=== PATIENT | female | born 1950 | race Hispanic/Latino ===

== ENCOUNTER 2017-10-25 07:55 | Observation (INO) | payer MEDICARE, OTHER ==
[2017-10-25 08:02] VITALS: BMI 24.9
--- NOTE | 2017-10-25 08:05 | ED PDOC ---
Arrival/HPI - General Chief Complaint: Dizziness/Lightheaded Time Seen by Provider: 10/25/17 08:04 Historian: Patient - History of Present Illness Narrative History of Present Illness (Text): 10/25/17 08:30 67 year old female who presents to the emergency department complaining of dizziness/lightheadedness since this morning. Patient reports she was at the coffee shop when she began to feel lightheadedness and due to these symptoms the merchandising team lead called 911. Patient notes the lightheadedness has become more frequent in the past 2 days and complains of lack of sleep in the last 6-7 days. She states being concerned about apartment eviction, which she claims " has mold" in it as well, and has associated these concerns with feeling depression with no SI, NO HI. Additionally, patient notes having dysuria since 3 days ago and was diagnosed with UTI 6 weeks ago (finished antibiotic Macrobid) . According to patient she has been in [facility] psych unit before and notes having visual hallucination, mainly in the dark, with no auditory/tactile hallucinations. She states not drinking much fluid, except coffee. Patient denies LOC, focal weakness, fever, chest pain, shortness of breath or other complaints. pt denied other complaints pt is here for further eval PMD: Doctor in ; DR Farrar Psychologist: in [place] pt lives by herself pt is right hand dominate Time/Duration: < week Symptom Onset: Sudden Symptom Course: Unchanged Severity Level: Mild Activities at Onset: Rest Context: Home, Other (was a coffee shop) Past Medical History - Provider Review Nursing Documentation Reviewed: Yes - Travel History Have you recently traveled outside US w/in the past 3 mons?: No - Past History Past History: No Previous - Infectious Disease Hx of Infectious Diseases: None - Tetanus Immunization Tetanus Immunization: Unknown - Reproductive Menopause: Yes Currently : No Family/Social History - Physician Review Nursing Documentation Reviewed: Yes Family/Social History: Unknown Family HX Smoking Status: Unknown If Ever Smoked Hx Alcohol Use: No Hx Substance Use: No Hx Substance Use Treatment: No Allergies/Home Meds Allergies/Adverse Reactions: Allergies Sulfa (Sulfonamide Antibiotics) Allergy (Verified 10/25/17 11:44) RASH Home Medications: Home Meds Medication Instructions Recorded Confirmed Atorvastatin Calcium 10 mg PO DIN 10/25/17 10/25/17 Escitalopram [Lexapro] 10 mg PO DAILY 10/25/17 10/25/17 Lisinopril [Zestril] 10 mg PO DAILY 10/25/17 10/25/17 Metoprolol Tartrate [Lopressor] 25 mg PO DAILY 10/25/17 10/25/17 Review of Systems - Review of Systems Constitutional: Fatigue. absent: Fevers Eyes: absent: Vision Changes ENT: absent: Hearing Changes Respiratory: absent: SOB Cardiovascular: absent: Chest Pain, Palpitations Gastrointestinal: absent: Abdominal Pain Genitourinary Female: Dysuria. absent: Hematuria, Vaginal Discharge Musculoskeletal: absent: Back Pain Skin: absent: Rash Neurological: Dizziness (lightheadedness). absent: Headache, Speech Changes Endocrine: absent: Diaphoresis Hemo/Lymphatic: Normal Psychiatric: Depression, Other (visual hallucination). absent: Suicidal Ideation Physical Exam Vital Signs Reviewed: Yes Vital Signs Temp Pulse Resp BP Pulse Ox 10/25/17 11:07 98.6 F 84 19 162/74 H 98 Temperature: Afebrile Blood Pressure: Hypertensive Pulse: Regular Respiratory Rate: Normal Appearance: Positive for: Well-Appearing, Non-Toxic, Uncomfortable, Other (alert /awake, GCS = 15, oriented x 2 (not to date/time); cooperative, NAD, uncomfortable, resting in bed) Pain Distress: None Mental Status: Positive for: other (alert/awake, cooperative). No: Alert and Oriented X 3 (oriented x 2 (not to date and time) ), Confused, Agitated, Lethargic, Comatose - Systems Exam Head: Present: Atraumatic, Normocephalic Pupils: Present: PERRL, Other (no nystagmus, no photophobia, sclera anicteric; visual field intact b/l) Extroacular Muscles: Present: EOMI Conjunctiva: Present: Normal Ears: Present: Normal Mouth: Present: Dry, Other (poor dentitions, no drooling/stridor, no dysphonia; dry oral mucosa noted, uvula/tongue are midline) Pharnyx: Present: Normal Nose (External): Present: Atraumatic Nose (Internal): Present: Normal Inspection Neck: Present: Normal Range of Motion, Trachea Midline, Other (no step off, no midline tenderness). No: Meningeal Signs, MIDLINE TENDERNESS Respiratory/Chest: Present: Clear to Auscultation, Good Air Exchange, Other ( CTA b/l, no w/r/r, no accessory muscle use noted, no tachypenia). No: Respiratory Distress, Accessory Muscle Use, Wheezes, Decreased Breath Sounds, Rales, Retracting, Rhonchi Cardiovascular: Present: Regular Rate and Rhythm, Normal S1, S2. No: Murmurs, Tachycardic Abdomen: Present: Normal Bowel Sounds, Other (well nourished female, no focal tenderness, no leroy's sign, no mcburney's point tenderness, no masses/rebound/ guarding/rigidity). No: Tenderness, Distention, Peritoneal Signs, Rebound, Guarding Back: Present: Normal Inspection. No: CVA Tenderness, Midline Tenderness Upper Extremity: Present: Normal Inspection, Normal ROM, NORMAL PULSES, Neurovascularly Intact Lower Extremity: Present: Normal Inspection, NORMAL PULSES, Normal ROM, Neurovascularly Intact Neurological: Present: GCS=15, CN II-XII Intact, Speech Normal, Motor Func Grossly Intact, Normal Sensory Function, Normal Cerebellar Funct, Other (slight unsteady gait is noted, mild wide base gait; + ambulates with a cane, no slurr speech, oriented x 2, no facial asymmetries) Skin: Present: Warm, Dry, Normal Color, Other (cap refill ~ 1sec, no ulcerations , no petechiae). No: Rashes Psychiatric: Present: Alert, Normal Insight, Normal Concentration, Anxious ( appears figity ). No: Oriented x 3 (oriented x 2) Medical Decision Making ED Course and Treatment: 10/25/17 Impression: 67 year old female who is cooperative and appears anxious and fidgety. She is alert and oriented x 2 ( not to date or time). NIH score at baseline was 0. She is complaining of dizziness/lightheadedness and depression. I have considered all Differential Diagnosis regarding pt's chief medical complaints/clinical findings included but are not limited to: Plan: -- CT Head -- Labs -- Urinalysis -- Aspirin and Sodium Chloride -- Reassess and disposition Progress Notes: 10/25/17 1055 pt continues to feel weak/dizzy, uncomfortable pt is made aware of her medical results agrees with admission/observation 1100 hospitalists collection systems administrator contacted, made aware, agrees with admission/observation 1130 vital signs improved pt is not in any distress currently, awaiting UA results Re-evaluation Time: 10:50 Reassessment Condition: Unchanged - Lab Interpretations Lab Results: 10/25/17 08:48 10/25/17 08:48 Lab Results 10/25/17 08:48: Salicylates < 1 L, Acetaminophen < 10.0 L 10/25/17 08:48: TSH 3rd Generation 2.46, Alcohol, Quantitative < 10 10/25/17 08:48: pO2 65 H, VBG pH 7.40, VBG pCO2 46.0, VBG HCO3 28.5 H, VBG Total CO2 29.9 H, VBG O2 Sat (Calc) 95.0 H, VBG Base Excess 3.0 H, VBG Potassium 4.2, Sodium 138.0, Chloride 104.0, Glucose 133 H, Lactate 1.2, FiO2 21.0, Venous Blood Potassium 4.2 10/25/17 08:48: Sodium 141, Chloride 102, Potassium 4.2, Carbon Dioxide 29, Anion Gap 15, BUN 13, Creatinine 0.7, Est GFR ( Amer) > 60, Est GFR (Non- Af Amer) > 60, Random Glucose 129 H, Calcium 10.4, Total Bilirubin 0.5, AST 45 H , ALT 44, Alkaline Phosphatase 72, Troponin I < 0.01, Total Protein 7.7, Albumin 4.6, Globulin 3.1, Albumin/Globulin Ratio 1.5, Lipase 76 10/25/17 08:48: PT 12.5, INR 1.09 H, APTT 28.0 10/25/17 08:48: WBC 5.6, RBC 4.00, Hgb 11.8 L, Hct 35.7 L, MCV 89.3, MCH 29.5, MCHC 33.1, RDW 13.6, Plt Count 273, MPV 8.7, Gran % 75.3 H, Lymph % (Auto) 13.3 L, [place] % (Auto) 9.7 H, Eos % (Auto) 1.3 L, Baso % (Auto) 0.4, Gran # 4.18, Lymph # (Auto) 0.7 L, [place] # (Auto) 0.5, Eos # (Auto) 0.1, Baso # (Auto) 0.02 I have reviewed the lab results: Yes Interpretation: Abnormal lab values (? UTI) - RAD Interpretation Narrative RAD Interpretations (Text): 10/25/17 09:30 CT Head: Creator : Martha Savage MD FINDINGS: HEMORRHAGE: No intracranial hemorrhage. BRAIN: There are moderate chronic microangiopathic changes. There is no mass, mass effect or abnormal extra-axial fluid collection. VENTRICLES: The ventricles are normal in size, shape and configuration. CALVARIUM: The skull base and calvarium are normal. PARANASAL SINUSES: There is moderate polypoid mucosal thickening in the left maxillary sinus. The remaining included paranasal sinuses are predominantly clear. MASTOID AIR CELLS: Predominantly clear. OTHER FINDINGS: None. IMPRESSION: No acute intracranial abnormality. Moderate chronic microangiopathic changes. 10/25/17 11:54 cxr - spine curvature noted otherwise NAD Radiology Orders: 10/25/17 08:31 HEAD W/O CONTRAST [CT] Stat Director Of Rehabilitative Services: ED Physician, Radiologist - EKG Interpretation EKG Interpretation (Text): 10/25/17 11:41 NSR at 90 bpm, normal axis, no ectopy, incomplete RBBB, no st-t changes, ABNL EKG; no old ekg to compare with Interpreted by ED Physician: Yes Type: 12 lead EKG Comparison: No previous EKG avail. - Medication Orders Current Medication Orders: Discontinued Medications Aspirin (Aspirin Chewable) 324 mg PO STAT STA Stop: 10/25/17 08:35 Last Admin: 10/25/17 08:53 Dose: 324 mg Sodium Chloride (Sodium Chloride 0.9%) 1,000 mls @ 999 mls/hr IV .Q1H1M STA Stop: 10/25/17 09:33 Last Admin: 10/25/17 08:53 Dose: 999 mls/hr eMAR Start Stop Document 10/25/17 08:53 [email or web address] (Rec: 10/25/17 08:53 [email or web address] [id number]) Intravenous Solution Start Date 10/25/17 Start Time 08:53 End Date 10/25/17 NIHSS Stroke Scale 3 - Date/Time Evaluation Performed Date Performed: 10/25/17 Time Performed: 08:30 When Was NIHSS Performed: Baseline - How Severe is the Stroke Level of Consciousness: 0=Alert LOC to Questions: 0=Both comments correct LOC to commands: 0=Obeys both correctly Best Gaze: 0=Normal Visual: 0=No visual loss Facial: 0=Normal Motor Arm - Left: 0=No drift Motor Arm - Right: 0=No drift Motor Leg - Left: 0=No drift Motor Leg - Right: 0=No drift Limb Ataxia: 0=Absent Sensory: 0=Normal Best Language: 0=No aphasia Dysarthia: 0=Normal articulation Extinction & Inattention (Neglect): 0=Normal, no object Score: 0 - Scribe Statement The provider has reviewed the documentation as recorded by the Vane Vogt Provider Scribe Attestation: All medical record entries made by the Vane were at my direction and personally dictated by me. I have reviewed the chart and agree that the record accurately reflects my personal performance of the history, physical exam, medical decision making, and the department course for this patient. I have also personally directed, reviewed, and agree with the discharge instructions and disposition. Disposition/Present on Arrival - Present on Arrival Any Indicators Present on Arrival: No History of DVT/PE: No History of Uncontrolled Diabetes: No Urinary Catheter: No History of Decub. Ulcer: No History Surgical Site Infection Following: None - Disposition Have Diagnosis and Disposition been Completed?: Yes Diagnosis: Near syncope, Dizziness, Dysuria, Major depression, Chronic insomnia, Elevated blood pressure reading, UTI (urinary tract infection) Disposition: HOSPITALIZED Disposition Time: 11:15 Patient Plan: Admission, Observation Patient Problems: Current Active Problems Problem Status Onset Near syncope Acute Dizziness Acute Dysuria Acute Major depression Acute Chronic insomnia Acute Elevated blood pressure reading Acute Condition: STABLE
[2017-10-25] MEDS ORDERED: Sodium Chloride 0.9% 1,000 ML IV STA (08:33)
[2017-10-25 09:06] LABS: VENOUS BLOOD GAS PO2 65 mm/Hg (30-55)
[2017-10-25 09:12] LABS: BASO # 0.02 K/mm3 (0.0-2.0); BASO % 0.4 % (0.0-3.0); EOS # 0.1 (0.0-0.7); EOS % 1.3 % (1.5-5.0); GRAN # 4.18 (1.4-6.5); GRAN % 75.3 % (50.0-68.0); HEMOGLOBIN 11.8 g/dL (12.0-16.0); LYMPH # 0.7 (1.2-3.4); LYMPH % 13.3 % (22.0-35.0); MEAN CELL VOLUME 89.3 fl (80.0-105.0); MEAN CORPUSCULAR HEMOGLOBIN 29.5 pg (25.0-35.0); MEAN CORPUSCULAR HGB CONC 33.1 g/dl (31.0-37.0); MEAN PLATELET VOLUME 8.7 fl (7.0-11.0); MONO # 0.5 (0.1-0.6); MONO % 9.7 % (1.0-6.0); RED CELL DISTRIBUTION WIDTH 13.6 % (11.5-14.5); WHITE BLOOD COUNT 5.6 10^3/ul (4.5-11.0)
[2017-10-25 09:25] LABS: ALB/GLOB RATIO 1.5 (1.1-1.8); ALBUMIN 4.6 g/dL (3.0-4.8); ALT/SGPT 44 U/L (7-56); AST/SGOT 45 U/L (14-36); BLOOD UREA NITROGEN 13 mg/dL (7-21); CALCIUM 10.4 mg/dL (8.4-10.5); GFR AFRICAN-AMERICAN > 60; GFR NON-AFRICAN AMERICAN > 60; LIPASE 76 U/L (23-300)
[2017-10-25 09:26] LABS: ACETAMINOPHEN < 10.0 ug/ml (10.0-20.0); SALICYLATE < 1 mg/dL (2.0-20.0)
--- NOTE | 2017-10-25 09:31 | CT ---
PROCEDURE: CT HEAD WITHOUT CONTRAST. HISTORY: Lightheadedness COMPARISON: None available. TECHNIQUE: Axial computed tomography images were obtained through the head/brain without intravenous contrast. Radiation dose: Total exam DLP = 857.41 mGy-cm. This CT exam was performed using one or more of the following dose reduction techniques: Automated exposure control, adjustment of the mA and/or kV according to patient size, and/or use of iterative reconstruction technique. FINDINGS: HEMORRHAGE: No intracranial hemorrhage. BRAIN: There are moderate chronic microangiopathic changes. There is no mass, mass effect or abnormal extra-axial fluid collection. VENTRICLES: The ventricles are normal in size, shape and configuration. CALVARIUM: The skull base and calvarium are normal. PARANASAL SINUSES: There is moderate polypoid mucosal thickening in the left maxillary sinus. The remaining included paranasal sinuses are predominantly clear. MASTOID AIR CELLS: Predominantly clear. OTHER FINDINGS: None. IMPRESSION: No acute intracranial abnormality. Moderate chronic microangiopathic changes.
[2017-10-25 09:33] LABS: INR 1.09 (0.93-1.08); PROTHROMBIN TIME 12.5 SECONDS (9.4-12.5)
[2017-10-25 09:34] LABS: TROPONIN I < 0.01 ng/mL
[2017-10-25 12:11] LABS: URINE BILIRUBIN NEGATIVE (NEGATIVE); URINE BLOOD NEGATIVE (NEGATIVE); URINE GLUCOSE (UA) NEGATIVE (NEGATIVE); URINE LEUKOCYTE ESTERASE TRACE Leu/uL (NEGATIVE); URINE PROTEIN NEGATIVE mg/dL (<30 mg/dL)
[2017-10-25 12:12] LABS: URINE APPEARANCE CLEAR (CLEAR); URINE COLOR YELLOW (YELLOW)
[2017-10-25 12:18] LABS: URINE RBC 0 - 2 /hpf (0-2)
[2017-10-25 12:19] LABS: URINE AMORPHOUS SEDIMENT FEW; URINE BACTERIA LARGE (NEG)
--- NOTE | 2017-10-25 12:30 | CP.PCM.HP ---
"Addendum entered and electronically signed by Louise Coffey DO 10/25/17 15:43: Plan: UTI Macrobid @12H F/U Urine Culture Original Note: <Louise Coffey - Last Filed: 10/25/17 14:43> History of Present Illness - History of Present Illness History of Present Illness: This patient is a 67 year old female with a past medical history of hypertension, hyperlipidemia, cardiac catherization w/o stent placement, COPD, GERD, Chronic Neuropathy, stress incontinence, and possible schizoaffective disorder who is admitted for evaluation of dizziness x 2 days. PMHx was taken from patient and her primary care physician. Patient stated she walked to a coffee shop and while there she asked employees to call ambulance because she was dizzy. Patient admits to not eating or sleeping for the past 2 days. When asked why she hasn't eaten, patient just stated that she hasn't been hungry. Patient also mentioned that she is being moved to a homeless long-term. Patient' s Odd behavior made history and ROS difficult to obtain. Patient denied any headache, chest pain, palpitations, abdominal pain, nausea, vomiting, diarrhea, constipation, blood in stool, hematuria, or urinary frequency. Patient did complain of Dysuria ROS POSITIVES: Dizziness, Insominia, Low Appetite, Depression w/o suicidal ideation, Dysuria NEGATIVES: Headache, chest pain, palpitations, abdominal pain, nausea, vomiting, diarrhea, constipation, blood in stool, hematuria, urinary prequency, pre-syncopy, suicidal/homicidal ideation, audio/visual hallucination. PMHx: hypertension, hyperlipidemia, cardiac catherization w/o stent placement , COPD, GERD, Chronic Neuropathy, and possible schizoaffective disorder, Stress Incontinence PSHx: Spina Bifida Surgery (infancy), tonsillectomy, septorhinoplasty, Allergies: Patient Denied. Per chart, Sulfa Antibiotics Social: Lives in [place] [address] with other people, says she is getting moved to homeless long-term, Denies tobacco, alcohol, or illicit drug use. Has a cousin in [place] Hos: [facility] for chest pain 3-4 years ago FamHx: Non-Contribitory Meds: Reviewed PMD: Dr. Charan Valdivia Psychiatrist: Sees Psychiatrist in [place] Present on Admission - Present on Admission Any Indicators Present on Admission: No Review of Systems - Review of Systems All systems: reviewed and no additional remarkable complaints except Review of Systems: As per HPI Past Patient History - Infectious Disease Hx of Infectious Diseases: None - Tetanus Immunizations Tetanus Immunization: Unknown - Past Social History Smoking Status: Unknown If Ever Smoked - CARDIAC Hx Cardiac Disorders: Yes Hx Hypertension: Yes - PSYCHIATRIC Hx Substance Use: No - SURGICAL HISTORY Hx Surgeries: Yes Hx Tonsillectomy: Yes Other/Comment: spina bifida,rhinoplasty - ANESTHESIA Hx Anesthesia: Yes Hx Anesthesia Reactions: No Hx Malignant Hyperthermia: No Meds Allergies/Adverse Reactions: Allergies Allergy/AdvReac Type Severity Reaction Status Date / Time Sulfa (Sulfonamide Allergy RASH Verified 10/25/17 11:44 Antibiotics) Physical Exam - Constitutional Appears: Non-toxic, No Acute Distress, Unkempt - Head Exam Head Exam: ATRAUMATIC, NORMAL INSPECTION, NORMOCEPHALIC - Eye Exam Eye Exam: EOMI, Normal appearance Pupil Exam: NORMAL ACCOMODATION - ENT Exam ENT Exam: Mucous Membranes Moist - Respiratory Exam Respiratory Exam: Clear to Auscultation Bilateral, NORMAL BREATHING PATTERN. absent: Decreased Breath Sounds, Rales, Rhonchi - Cardiovascular Exam Cardiovascular Exam: RRR, +S1, +S2. absent: Diastolic murmur, JVD, Systolic Murmur Additional comments: No Carotid Bruit - GI/Abdominal Exam GI & Abdominal Exam: Normal Bowel Sounds, Soft. absent: Distended, Tenderness - Extremities Exam Extremities exam: Positive for: normal capillary refill. Negative for: pedal edema - Back Exam Back exam: absent: CVA tenderness (L), CVA tenderness (R) - Neurological Exam Neurological exam: Alert, Oriented x3 Additional comments: Gait Instability - Psychiatric Exam Additional comments: Restricted Affect, Odd Behavior, Thought Blocking. - Skin Skin Exam: Dry, Intact, Normal Color, Warm Results - Vital Signs Recent Vital Signs: Last Vital Signs Temp 98.6 F 10/25/17 11:07 Pulse 84 10/25/17 11:07 Resp 19 10/25/17 11:07 BP 162/74 H 10/25/17 11:07 Pulse Ox 98 10/25/17 11:07 - Labs Result Diagrams: 10/25/17 08:48 10/25/17 08:48 Labs: Laboratory Results - last 24 hr 10/25/17 12:00 Urine Color Yellow Urine Appearance Clear Urine pH 8.0 Ur Specific [place] 1.020 Urine Protein Negative Urine Glucose (UA) Negative Urine Ketones Negative Urine Blood Negative Urine Nitrate Negative Urine Bilirubin Negative Urine Urobilinogen 1.0 H Ur Leukocyte Esterase Trace H Urine RBC 0 - 2 Urine WBC 2 - 5 Ur Epithelial Cells 3 - 4 Amorphous Sediment Few Urine Bacteria Large Urine Other Uyeast Assessment & Plan - Assessment and Plan (Free Text) Assessment: This patient is a 67 year old female with a past medical history of hypertension, hyperlipidemia, cardiac catherization w/o stent placement, COPD, GERD, Chronic Neuropathy, stress incontinence, and possible schizoaffective disorder who is admitted for evaluation of dizziness x 2 days. Plan: Dizziness Likely due to not eating. 1st Trop NEGATIVE, F/U 2nd and 3rd Trop EKG: NSR with no ST/T wave abnormalties CT HEAD (Admission): No acute intracranial abnormalities, Moderate chronic microangiopathic changes CXR(Admission): No definitive acute cardiopulmonary is appreciable though the exam is distorted by scoliotic thoracolumbar spinal deformity and rotation of the patient slightly toward the left. ECHO Carotid Dopplers [facility]ostatics Physical Therapy Hx of HTN Home Meds Metoprolol 25mg Daily | Lisinopril 10 Daily Hx of HLD Home Med: Lipitor 10mg PO DIN Lovaza 2mg Daily. Patient states she takes 2mg in AM and 2mg in PM. We will confirm Hx of COPD Home Med: Advair Diskus Q12H PRN Hx of GERD Start Protonix 40 Daily Hx of Insomnia Consider Benadryl Consider Seroquel Depression/Psychiatric Hx: Psychiatry Consulted Home Med: Lexapro 10 Risperidone 2mg HS Patient primary physician was contacted. He agreed to fax over a list of patient's medication. His description of the patient sounds like patient may be malingering, factitious, or suffers from somatization/illness anxiety. GI/DVT Proph: Protonix/SCD's Patient seen and examined with Attending Louise Coffey, PGY-1 <Chon Rushing - Last Filed: 10/26/17 16:54> Results - Vital Signs Recent Vital Signs: Last Vital Signs Temp 97.8 F 10/26/17 11:58 Pulse 70 10/26/17 14:00 Resp 18 04/20/18 11:58 BP 138/90 10/26/17 11:58 Pulse Ox 97 10/26/17 06:00 - Labs Result Diagrams: 10/26/17 10:30 10/26/17 10:30 Labs: Laboratory Results - last 24 hr 10/25/17 10/25/17 10/25/17 17:49 21:08 23:50 WBC RBC Hgb Hct MCV MCH MCHC RDW Plt Count MPV Gran % Lymph % (Auto) [place] % (Auto) Eos % (Auto) Baso % (Auto) Gran # Lymph # (Auto) [place] # (Auto) Eos # (Auto) Baso # (Auto) ESR Sodium Potassium Chloride Carbon Dioxide Anion Gap BUN Creatinine Est GFR ( Amer) Est GFR (Non-Af Amer) POC Glucose (mg/dL) 81 Random Glucose Hemoglobin A1c Uric Acid Calcium Magnesium Total Bilirubin AST ALT Alkaline Phosphatase Troponin I < 0.01 < 0.01 C-Reactive Protein Total Protein Albumin Globulin Albumin/Globulin Ratio Free T4 TSH 3rd Generation Urine Opiates Screen Urine Methadone Screen Ur Barbiturates Screen Ur Phencyclidine Scrn Ur Amphetamines Screen U Benzodiazepines Scrn U Oth Cocaine Metabols U Cannabinoids Screen 10/26/17 10/26/17 10/26/17 07:31 10:30 10:30 WBC 5.9 RBC 4.02 Hgb 11.8 L Hct 36.1 MCV 89.8 MCH 29.4 MCHC 32.7 RDW 13.7 Plt Count 253 MPV 8.7 Gran % 79.9 H Lymph % (Auto) 12.1 L [place] % (Auto) 5.8 Eos % (Auto) 1.9 Baso % (Auto) 0.3 Gran # 4.71 Lymph # (Auto) 0.7 L [place] # (Auto) 0.3 Eos # (Auto) 0.1 Baso # (Auto) 0.02 ESR Sodium 141 Potassium 3.5 L Chloride 102 Carbon Dioxide 28 Anion Gap 15 BUN 15 Creatinine 0.7 Est GFR ( Amer) > 60 Est GFR (Non-Af Amer) > 60 POC Glucose (mg/dL) 76 Random Glucose 151 H Hemoglobin A1c Uric Acid Calcium 10.5 Magnesium Total Bilirubin 0.4 AST 37 H ALT 37 Alkaline Phosphatase 60 Troponin I C-Reactive Protein Total Protein 7.4 Albumin 4.4 Globulin 3.0 Albumin/Globulin Ratio 1.5 Free T4 TSH 3rd Generation Urine Opiates Screen Urine Methadone Screen Ur Barbiturates Screen Ur Phencyclidine Scrn Ur Amphetamines Screen U Benzodiazepines Scrn U Oth Cocaine Metabols U Cannabinoids Screen 10/26/17 10/26/17 10/26/17 11:00 11:00 11:00 WBC RBC Hgb Hct MCV MCH MCHC RDW Plt Count MPV Gran % Lymph % (Auto) [place] % (Auto) Eos % (Auto) Baso % (Auto) Gran # Lymph # (Auto) [place] # (Auto) Eos # (Auto) Baso # (Auto) ESR Sodium Potassium Chloride Carbon Dioxide Anion Gap BUN Creatinine Est GFR ( Amer) Est GFR (Non-Af Amer) POC Glucose (mg/dL) Random Glucose Hemoglobin A1c 5.6 Uric Acid 5.2 Calcium Magnesium 2.0 Total Bilirubin AST ALT Alkaline Phosphatase Troponin I C-Reactive Protein < 5.00 Total Protein Albumin Globulin Albumin/Globulin Ratio Free T4 1.21 TSH 3rd Generation 1.63 Urine Opiates Screen Urine Methadone Screen Ur Barbiturates Screen Ur Phencyclidine Scrn Ur Amphetamines Screen U Benzodiazepines Scrn U Oth Cocaine Metabols U Cannabinoids Screen 10/26/17 10/26/17 10/26/17 11:00 11:18 14:27 WBC RBC Hgb Hct MCV MCH MCHC RDW Plt Count MPV Gran % Lymph % (Auto) [place] % (Auto) Eos % (Auto) Baso % (Auto) Gran # Lymph # (Auto) [place] # (Auto) Eos # (Auto) Baso # (Auto) ESR 32 H Sodium Potassium Chloride Carbon Dioxide Anion Gap BUN Creatinine Est GFR ( Amer) Est GFR (Non-Af Amer) POC Glucose (mg/dL) 117 H Random Glucose Hemoglobin A1c Uric Acid Calcium Magnesium Total Bilirubin AST ALT Alkaline Phosphatase Troponin I C-Reactive Protein Total Protein Albumin Globulin Albumin/Globulin Ratio Free T4 TSH 3rd Generation Urine Opiates Screen Negative Urine Methadone Screen Negative Ur Barbiturates Screen Negative Ur Phencyclidine Scrn Negative Ur Amphetamines Screen Negative U Benzodiazepines Scrn Negative U Oth Cocaine Metabols Negative U Cannabinoids Screen Negative Attending/Attestation - Attestation I have personally seen and examined this patient.: Yes I have fully participated in the care of the patient.: Yes I have reviewed all pertinent clinical information: Yes Notes (Text): 10/26/17 16:48 attending note; Patient seen and examined with resident. This patient is a 67 year old female with a past medical history of hypertension, hyperlipidemia, COPD, GERD, Chronic Neuropathy, stress incontinence, and possible schizoaffective disorder who is admitted for evaluation of dizziness x 2 days. patient is going to a lot of stress due to eviction from her apartment. patient is also complaining of severe depression. Denies any suicidal ideation. Her dizziness is poor by mouth intake and insomnia. Patient usually walks with a cane. Patient had spina bifida surgery. admit to telemetry. Started on IV fluids. Cardiac enzymes negative. EKG normal. Echo and carotid Doppler ordered. PT evaluation requested. Psych evaluation requested. Possible transfer to the psychiatric floor tomorrow."
--- NOTE | 2017-10-25 13:14 | RAD ---
HISTORY: weakness, near syncope COMPARISON: No prior. FINDINGS: LUNGS: The patient rotated toward the left somewhat with a scoliotic thoracolumbar spinal deformity also noted distorting the exam. No definitive infiltrate identified bilaterally. PLEURA: No significant pleural effusion identified, no pneumothorax apparent. CARDIOVASCULAR: Normal. OSSEOUS STRUCTURES: No significant abnormalities. VISUALIZED UPPER ABDOMEN: Normal. OTHER FINDINGS: None. IMPRESSION: No definitive acute cardiopulmonary is appreciable though the exam is distorted by scoliotic thoracolumbar spinal deformity and rotation of the patient slightly toward the left.
[2017-10-25] MEDS ORDERED: Pneumococcal 23-Valent Vaccine IM ONE (14:20)
--- NOTE | 2017-10-25 14:21 | CARD ---
APPROVED REPORT EKG Measurement Heart [id number] <Conclusion> Normal sinus rhythm Possible Left atrial enlargement Borderline ECG
--- NOTE | 2017-10-25 17:35 | US ---
PROCEDURE: Bilateral carotid artery duplex ultrasound HISTORY: Carotid stenosis syncope PHYSICIAN(S): Andrés Pimentel MD. TECHNIQUE: Duplex sonography and color-flow Doppler were used to evaluate the carotid bifurcations and limited segments of the vertebral arteries bilaterally. FINDINGS: There is mild smooth heterogeneous plaque noted at the carotid bifurcations bilaterally. The peak systolic velocity in the proximal right internal carotid artery is 97 cm/sec. This corresponds to a 20 to 39% proximal right ICA stenosis. Normal systolic velocities are noted in the proximal right external carotid artery. There is antegrade flow in the right vertebral artery. The peak systolic velocity in the proximal left internal carotid artery is 99 cm/sec. This corresponds to a 20 to 39% proximal left ICA stenosis. Normal systolic velocities are noted in the proximal left external carotid artery. There is antegrade flow in the left vertebral artery. IMPRESSION: 1. Bilateral 20-39% proximal ICA stenoses. 2. Antegrade flow in both vertebral arteries.
--- NOTE | 2017-10-25 19:38 | CARD ---
APPROVED REPORT EXAM: Two-dimensional and M-mode echocardiogram with Doppler and color Doppler. INDICATION PRE- SYNCOPE 2D DIMENSIONS Left Atrium (2D)4.2 (1.6-4.0cm)IVSd1.0 (0.7-1.1cm) LVDd4.3 (3.9-5.9cm)PWd1.1 (0.7-1.1cm) LVDs2.7 (2.5-4.0cm)FS (%) 37.5 % LVEF (%)67.9 (>50%) M-Mode DIMENSIONS Aortic Root2.50 (2.2-3.7cm)Aortic Cusp Exc.1.50 (1.5-2.0cm) Aortic Valve AoV Peak Nqftklnm829.0cm/sAoV VTI33.1cmAO Peak GR.11mmHg LVOT Peak Ylqlcarv864.0cm/sLVOT VTI23.10cmAO Mean GR.6mmHg Mitral Valve MV E Uhgzmzaf53.9cm/sMV A Hpzmpuya03.8cm/sE/A ratio1.0 TDI Lateral E' Peak V12.30cm/sMedial E' Peak V12.30cm/sE/Lateral E'7.2 E/Medial E'7.2 Pulmonary Valve PV Peak Aucfdjup10.3cm/sPV Peak Grad.4mmHg Tricuspid Valve TR Peak Owtouddn207kk/sRAP WWHAAWJP55mhYmHH Peak Gr.24mmHg WLSZ84prVg LEFT VENTRICLE The left ventricle is normal size. There is normal left ventricular wall thickness. The left ventricular function is normal. The left ventricular ejection fraction is within the normal range. There is normal LV segmental wall motion. Transmitral Doppler flow pattern is Grade I-abnormal relaxation pattern. RIGHT VENTRICLE The right ventricle is normal size. There is normal right ventricular wall thickness. The right ventricular systolic function is normal. ATRIA The left atrium is borderline dilated. The right atrium size is normal. AORTIC VALVE The aortic valve is thickened but opens well. No aortic regurgitation is present. MITRAL VALVE The mitral valve is mildly thickened. There is no mitral valve regurgitation noted. There is no mitral valve stenosis. TRICUSPID VALVE There is mild pulmonary hypertension. PULMONIC VALVE There is mild pulmonic valvular regurgitation. GREAT VESSELS The aortic root is normal in size. <Conclusion> There is normal left ventricular wall thickness. The left ventricular function is normal. The left ventricular ejection fraction is within the normal range. There is normal LV segmental wall motion. Transmitral Doppler flow pattern is Grade I-abnormal relaxation pattern. There is mild pulmonary hypertension.
[2017-10-25] MEDS ORDERED: Fluticasone-Salmeterol 250-50mcg Diskus IH SCH (22:00)
[2017-10-25] MEDS: Budesonide 0.5 mg/2 ml Inhal Susp UD IH SCH (22:38)
[2017-10-25] MEDS: Arformoterol 15 mcg/2 ml Inh Sol IH SCH (22:38)
[2017-10-26 06:10] VITALS: RESP 18; O2SAT 97
[2017-10-26] MEDS: Arformoterol 15 mcg/2 ml Inh Sol IH SCH (08:19)
[2017-10-26] MEDS: Budesonide 0.5 mg/2 ml Inhal Susp UD IH SCH (08:19)
[2017-10-26] MEDS ORDERED: Omega-3-Acid Ethyl Esters 1 GM Cap PO SCH (10:00)
[2017-10-26] MEDS ORDERED: Pantoprazole 40 mg EC Tab PO SCH (10:00)
[2017-10-26 10:44] LABS: BASO # 0.02 K/mm3 (0.0-2.0); BASO % 0.3 % (0.0-3.0); EOS # 0.1 (0.0-0.7); EOS % 1.9 % (1.5-5.0); GRAN # 4.71 (1.4-6.5); GRAN % 79.9 % (50.0-68.0); HEMOGLOBIN 11.8 g/dL (12.0-16.0); LYMPH # 0.7 (1.2-3.4); LYMPH % 12.1 % (22.0-35.0); MEAN CELL VOLUME 89.8 fl (80.0-105.0); MEAN CORPUSCULAR HEMOGLOBIN 29.4 pg (25.0-35.0); MEAN CORPUSCULAR HGB CONC 32.7 g/dl (31.0-37.0); MEAN PLATELET VOLUME 8.7 fl (7.0-11.0); MONO # 0.3 (0.1-0.6); MONO % 5.8 % (1.0-6.0); RBC 4.02 10^6/uL (3.5-6.1); RED CELL DISTRIBUTION WIDTH 13.7 % (11.5-14.5); WHITE BLOOD COUNT 5.9 10^3/ul (4.5-11.0)
[2017-10-26 11:03] LABS: ALB/GLOB RATIO 1.5 (1.1-1.8); ALBUMIN 4.4 g/dL (3.0-4.8); ALT/SGPT 37 U/L (7-56); AST/SGOT 37 U/L (14-36); BLOOD UREA NITROGEN 15 mg/dL (7-21); CALCIUM 10.5 mg/dL (8.4-10.5); GFR AFRICAN-AMERICAN > 60; GFR NON-AFRICAN AMERICAN > 60
[2017-10-26] MEDS ORDERED: Potassium Chloride 20 mEq ER Tab PO ONE (11:22)
[2017-10-26 13:12] LABS: URIC ACID 5.2 mg/dL (2.5-6.2)
[2017-10-26 13:29] LABS: FREE T4 1.21 ng/dL (0.78-2.19)
--- NOTE | 2017-10-26 14:01 | CP.PCM.PN ---
"<QuintonagataMarkantolin - Last Filed: 10/26/17 13:58> Subjective - Date & Time of Evaluation Date of Evaluation: 10/26/17 Time of Evaluation: 13:58 - Subjective Subjective: Patient seen and examined at bedside. No overnight events reported. She denies any dizziness, headache, chest pain, palpitations, or SOB. Objective - Vital Signs/Intake and Output Vital Signs (last 24 hours): Temp Pulse Resp BP Pulse Ox 97.8 F 90 18 138/90 97 10/26/17 11:58 10/26/17 11:58 10/26/17 11:58 10/26/17 11:58 10/26/17 06:00 Intake and Output: 10/26/17 10/26/17 06:59 18:59 Intake Total 320 Output Total 1 Balance 319 - Medications Medications: Current Medications Arformoterol Tartrate (Brovana) 15 mcg IH [id number] [facility] Last Admin: 10/26/17 08:19 Dose: 15 mcg Atorvastatin Calcium (Lipitor) 10 mg PO DIN [facility] Last Admin: 10/25/17 17:48 Dose: 10 mg Budesonide (Pulmicort Respules) 0.5 mg IH [id number] [facility] Last Admin: 10/26/17 08:19 Dose: 0.5 mg Clonazepam (Klonopin) 0.25 mg PO AMHS [facility] PRN Reason: Protocol Escitalopram Oxalate (Lexapro) 15 mg PO DAILY [facility] Lisinopril (Zestril) 10 mg PO DAILY [facility] Last Admin: 10/26/17 10:03 Dose: 10 mg Metoprolol Tartrate (Lopressor) 25 mg PO DAILY [facility] Last Admin: 10/26/17 10:03 Dose: 25 mg Nitrofurantoin Macrocrystals (Macrobid) 100 mg PO Q12 [facility] PRN Reason: Protocol Last Admin: 10/26/17 10:03 Dose: 100 mg Wdsay-8-Luaq Ethyl Esters (Lovaza) 2 gm PO DAILY [facility] Last Admin: 10/26/17 10:02 Dose: 2 gm Pantoprazole Sodium (Protonix Ec Tab) 40 mg PO DAILY [facility] Last Admin: 10/26/17 10:02 Dose: 40 mg Risperidone (Risperdal Tab) 2 mg PO HS [facility] PRN Reason: Protocol Last Admin: 10/25/17 22:04 Dose: 2 mg - Labs Labs: 10/26/17 10:30 10/26/17 10:30 PT 12.5 SECONDS (9.4-12.5) 10/25/17 08:48 INR 1.09 (0.93-1.08) H 10/25/17 08:48 APTT 28.0 Seconds (25.1-36.5) 10/25/17 08:48 - Additional Findings Additional findings: - Constitutional Appears: Non-toxic, No Acute Distress, Unkempt - Head Exam Head Exam: ATRAUMATIC, NORMAL INSPECTION, NORMOCEPHALIC - Eye Exam Eye Exam: EOMI, Normal appearance Pupil Exam: NORMAL ACCOMODATION - ENT Exam ENT Exam: Mucous Membranes Moist - Respiratory Exam Respiratory Exam: Clear to Auscultation Bilateral, NORMAL BREATHING PATTERN. absent: Decreased Breath Sounds, Rales, Rhonchi - Cardiovascular Exam Cardiovascular Exam: RRR, +S1, +S2. absent: Diastolic murmur, JVD, Systolic Murmur Additional comments: No Carotid Bruit - GI/Abdominal Exam GI & Abdominal Exam: Normal Bowel Sounds, Soft. absent: Distended, Tenderness - Extremities Exam Extremities exam: Positive for: normal capillary refill. Negative for: pedal edema - Back Exam Back exam: absent: CVA tenderness (L), CVA tenderness (R) - Neurological Exam Neurological exam: Alert, Oriented x3 Additional comments: Gait Instability - Psychiatric Exam Additional comments: Restricted Affect, Odd Behavior, Thought Blocking. - Skin Skin Exam: Dry, Intact, Normal Color, Warm Assessment and Plan - Assessment and Plan (Free Text) Assessment: This patient is a 67 year old female with a past medical history of hypertension, hyperlipidemia, cardiac catherization w/o stent placement, COPD, GERD, Chronic Neuropathy, stress incontinence, and possible schizoaffective disorder who is admitted for evaluation of dizziness x 2 days. Plan: Dizziness Likely due to not eating. 1st Trop NEGATIVE, F/U 2nd and 3rd Trop EKG: NSR with no ST/T wave abnormalties CT HEAD (Admission): No acute intracranial abnormalities, Moderate chronic microangiopathic changes CXR(Admission): No definitive acute cardiopulmonary is appreciable though the exam is distorted by scoliotic thoracolumbar spinal deformity and rotation of the patient slightly toward the left. ECHO - EF 67% Carotid Dopplers: Bilateral 20-29% ICA stenosis Orthostatics: NEGATIVE Physical Therapy recommends home when medically cleared. Hx of HTN Home Meds Metoprolol 25mg Daily | Lisinopril 10 Daily Hx of HLD Home Med: Lipitor 10mg PO DIN Lovaza 2mg Daily. Patient states she takes 2mg in AM and 2mg in PM. We will confirm Hx of COPD Brovana 15mcg Q12H PRN Hx of GERD Start Protonix 40 Daily Hx of Insomnia Consider Benadryl Consider Seroquel Depression/Psychiatric Hx: Psychiatry Consulted Home Med: Lexapro 10 Risperidone 2mg HS F/U with Psychiatric eval. Patient primary physician was contacted. He agreed to fax over a list of patient's medication. His description of the patient sounds like patient may be malingering, factitious, or suffers from somatization/illness anxiety. Will f /U with [facility]. Plan is home vs transfer to . GI/DVT Proph: Protonix/SCD's Patient seen and examined with Attending Louise Coffey, PGY-1 <Chon Rushing - Last Filed: 10/26/17 16:58> Objective - Vital Signs/Intake and Output Vital Signs (last 24 hours): Temp Pulse Resp BP Pulse Ox 97.8 F 70 18 138/90 97 10/26/17 11:58 10/26/17 14:00 10/26/17 11:58 10/26/17 11:58 10/26/17 06:00 Intake and Output: 10/26/17 10/26/17 06:59 18:59 Intake Total 320 1020 Output Total 1 300 Balance 319 720 - Medications Medications: Current Medications Arformoterol Tartrate (Brovana) 15 mcg IH [id number] [facility] Last Admin: 10/26/17 08:19 Dose: 15 mcg Atorvastatin Calcium (Lipitor) 10 mg PO DIN [facility] Last Admin: 10/25/17 17:48 Dose: 10 mg Budesonide (Pulmicort Respules) 0.5 mg IH [id number] [facility] Last Admin: 10/26/17 08:19 Dose: 0.5 mg Clonazepam (Klonopin) 0.25 mg PO AMHS [facility] PRN Reason: Protocol Escitalopram Oxalate (Lexapro) 15 mg PO DAILY [facility] Lisinopril (Zestril) 10 mg PO DAILY [facility] Last Admin: 10/26/17 10:03 Dose: 10 mg Metoprolol Tartrate (Lopressor) 25 mg PO DAILY [facility] Last Admin: 10/26/17 10:03 Dose: 25 mg Nitrofurantoin Macrocrystals (Macrobid) 100 mg PO Q12 [facility] PRN Reason: Protocol Last Admin: 10/26/17 10:03 Dose: 100 mg [id number]-[id number] Ethyl Esters (Lovaza) 2 gm PO DAILY [facility] Last Admin: 10/26/17 10:02 Dose: 2 gm Pantoprazole Sodium (Protonix Ec Tab) 40 mg PO DAILY [facility] Last Admin: 10/26/17 10:02 Dose: 40 mg Risperidone (Risperdal Tab) 2 mg PO HS [facility] PRN Reason: Protocol Last Admin: 10/25/17 22:04 Dose: 2 mg - Labs Labs: 10/26/17 10:30 10/26/17 10:30 PT 12.5 SECONDS (9.4-12.5) 10/25/17 08:48 INR 1.09 (0.93-1.08) H 10/25/17 08:48 APTT 28.0 Seconds (25.1-36.5) 10/25/17 08:48 Attending/Attestation - Attestation I have personally seen and examined this patient.: Yes I have fully participated in the care of the patient.: Yes I have reviewed all pertinent clinical information, including history, physical exam and plan: Yes Notes (Text): 10/26/17 16:57 attending note; Patient seen and examined with resident. This patient is a 67 year old female with a past medical history of hypertension, hyperlipidemia, COPD, GERD, Chronic Neuropathy, stress incontinence, and possible schizoaffective disorder who is admitted for evaluation of dizziness x 2 days. patient is going to a lot of stress due to eviction from her apartment. patient is also complaining of severe depression. Denies any suicidal ideation. Her dizziness is poor by mouth intake and insomnia. currently tolerating diet. Physical therapy evaluation appreciated. Patient usually walks with a cane. Patient had spina bifida surgery. cardiac enzymes negative. Carotid Dopplers without significant stenosis. Echocardiogram normal. Psych evaluation appreciated. transfer to the psychiatric floor today. diagnosis; Schizoaffective disorder Depression Gait instability spina bifida surgery"
[2017-10-26 15:07] LABS: BARBITURATES, UR NEGATIVE (NEGATIVE); BENZODIAZEPINES, UR NEGATIVE (NEGATIVE); OPIATES, UR NEGATIVE (NEGATIVE); PHENCYCLIDINE, UR NEGATIVE (NEGATIVE)
--- NOTE | 2017-10-26 18:35 | CP.PCM.DIS ---
Provider - Provider Date of Admission: 10/25/17 11:13 Attending physician: Franca Fernández MD Primary care physician: Franca Fernández MD Hospital Course - Lab Results Lab Results: Most Recent Lab Values WBC 5.9 10^3/ul (4.5-11.0) 10/26/17 10:30 RBC 4.02 10^6/uL (3.5-6.1) 10/26/17 10:30 Hgb 11.8 g/dL (12.0-16.0) L 10/26/17 10:30 Hct 36.1 % (36.0-48.0) 10/26/17 10:30 MCV 89.8 fl (80.0-105.0) 10/26/17 10:30 MCH 29.4 pg (25.0-35.0) 10/26/17 10:30 MCHC 32.7 g/dl (31.0-37.0) 10/26/17 10:30 RDW 13.7 % (11.5-14.5) 10/26/17 10:30 Plt Count 253 10^3/uL (120.0-450.0) 10/26/17 10:30 MPV 8.7 fl (7.0-11.0) 10/26/17 10:30 Gran % 79.9 % (50.0-68.0) H 10/26/17 10:30 Lymph % (Auto) 12.1 % (22.0-35.0) L 10/26/17 10:30 [place] % (Auto) 5.8 % (1.0-6.0) 10/26/17 10:30 Eos % (Auto) 1.9 % (1.5-5.0) 10/26/17 10:30 Baso % (Auto) 0.3 % (0.0-3.0) 10/26/17 10:30 Gran # 4.71 (1.4-6.5) 10/26/17 10:30 Lymph # (Auto) 0.7 (1.2-3.4) L 10/26/17 10:30 [place] # (Auto) 0.3 (0.1-0.6) 10/26/17 10:30 Eos # (Auto) 0.1 (0.0-0.7) 10/26/17 10:30 Baso # (Auto) 0.02 K/mm3 (0.0-2.0) 10/26/17 10:30 ESR 32 mm/hr (0.0-20.0) H 10/26/17 11:00 PT 12.5 SECONDS (9.4-12.5) 10/25/17 08:48 INR 1.09 (0.93-1.08) H 10/25/17 08:48 APTT 28.0 Seconds (25.1-36.5) 10/25/17 08:48 pO2 65 mm/Hg (30-55) H 10/25/17 08:48 VBG pH 7.40 (7.32-7.43) 10/25/17 08:48 VBG pCO2 46.0 (40-60) 10/25/17 08:48 VBG HCO3 28.5 mmol/l (21-28) H 10/25/17 08:48 VBG Total CO2 29.9 mmol.L (22-28) H 10/25/17 08:48 VBG O2 Sat (Calc) 95.0 % (40-65) H 10/25/17 08:48 VBG Base Excess 3.0 mmol/L (0.0-2.0) H 10/25/17 08:48 VBG Potassium 4.2 mmol/L (3.6-5.2) 10/25/17 08:48 Sodium 138.0 mmol/L (132-148) 10/25/17 08:48 Chloride 104.0 mmol/L (98-107) 10/25/17 08:48 Glucose 133 mg/dl (65-105) H 10/25/17 08:48 Lactate 1.2 mmol/L (0.7-2.1) 10/25/17 08:48 FiO2 21.0 % 10/25/17 08:48 Sodium 141 mmol/L (132-148) 10/26/17 10:30 Potassium 3.5 mmol/L (3.6-5.0) L 10/26/17 10:30 Chloride 102 mmol/L (98-107) 10/26/17 10:30 Carbon Dioxide 28 mmol/L (21-33) 10/26/17 10:30 Anion Gap 15 (10-20) 10/26/17 10:30 BUN 15 mg/dL (7-21) 10/26/17 10:30 Creatinine 0.7 mg/dl (0.7-1.2) 10/26/17 10:30 Est GFR ( Amer) > 60 10/26/17 10:30 Est GFR (Non-Af Amer) > 60 10/26/17 10:30 POC Glucose (mg/dL) 117 mg/dL (65-110) H 10/26/17 11:18 Random Glucose 151 mg/dL (70-110) H 10/26/17 10:30 Hemoglobin A1c 5.6 % (4.2-6.5) 10/26/17 11:00 Uric Acid 5.2 mg/dL (2.5-6.2) 10/26/17 11:00 Calcium 10.5 mg/dL (8.4-10.5) 10/26/17 10:30 Magnesium 2.0 mg/dL (1.7-2.2) 10/26/17 11:00 Total Bilirubin 0.4 mg/dL (0.2-1.3) 10/26/17 10:30 AST 37 U/L (14-36) H 10/26/17 10:30 ALT 37 U/L (7-56) 10/26/17 10:30 Alkaline Phosphatase 60 U/L (38-126) 10/26/17 10:30 Troponin I < 0.01 ng/mL 10/25/17 23:50 C-Reactive Protein < 5.00 mg/L (0.0-9.9) 10/26/17 11:00 Total Protein 7.4 g/dL (5.8-8.3) 10/26/17 10:30 Albumin 4.4 g/dL (3.0-4.8) 10/26/17 10:30 Globulin 3.0 gm/dL 10/26/17 10:30 Albumin/Globulin Ratio 1.5 (1.1-1.8) 10/26/17 10:30 Lipase 76 U/L (23-300) 10/25/17 08:48 Free T4 1.21 ng/dL (0.78-2.19) 10/26/17 11:00 TSH 3rd Generation 1.63 mIU/mL (0.46-4.68) 10/26/17 11:00 Venous Blood Potassium 4.2 mmol/L (3.6-5.2) 10/25/17 08:48 Urine Color Yellow (YELLOW) 10/25/17 12:00 Urine Appearance Clear (CLEAR) 10/25/17 12:00 Urine pH 8.0 (4.7-8.0) 10/25/17 12:00 Ur Specific Riley 1.020 (1.005-1.035) 10/25/17 12:00 Urine Protein Negative mg/dL (<30 mg/dL) 10/25/17 12:00 Urine Glucose (UA) Negative mg/dL (NEGATIVE) 10/25/17 12:00 Urine Ketones Negative mg/dL (NEGATIVE) 10/25/17 12:00 Urine Blood Negative (NEGATIVE) 10/25/17 12:00 Urine Nitrate Negative (NEGATIVE) 10/25/17 12:00 Urine Bilirubin Negative (NEGATIVE) 10/25/17 12:00 Urine Urobilinogen 1.0 E.U./dL (<1 E.U./dL) H 10/25/17 12:00 Ur Leukocyte Esterase Trace Jason/uL (NEGATIVE) H 10/25/17 12:00 Urine RBC 0 - 2 /hpf (0-2) 10/25/17 12:00 Urine WBC 2 - 5 /hpf (0-6) 10/25/17 12:00 Ur Epithelial Cells 3 - 4 /hpf (0-5) 10/25/17 12:00 Amorphous Sediment Few 10/25/17 12:00 Urine Bacteria Large (NEG) 10/25/17 12:00 Urine Other Uyeast 10/25/17 12:00 Salicylates < 1 mg/dL (2.0-20.0) L 10/25/17 08:48 Urine Opiates Screen Negative (NEGATIVE) 10/26/17 14:27 Urine Methadone Screen Negative (NEGATIVE) 10/26/17 14:27 Acetaminophen < 10.0 ug/ml (10.0-20.0) L 10/25/17 08:48 Ur Barbiturates Screen Negative (NEGATIVE) 10/26/17 14:27 Ur Phencyclidine Scrn Negative (NEGATIVE) 10/26/17 14:27 Ur Amphetamines Screen Negative (NEGATIVE) 10/26/17 14:27 U Benzodiazepines Scrn Negative (NEGATIVE) 10/26/17 14:27 U Oth Cocaine Metabols Negative (NEGATIVE) 10/26/17 14:27 U Cannabinoids Screen Negative (NEGATIVE) 10/26/17 14:27 Alcohol, Quantitative < 10 mg/dL (0-10) 10/25/17 08:48 Discharge Exam - Head Exam Head Exam: ATRAUMATIC, NORMAL INSPECTION, NORMOCEPHALIC Discharge Plan - Follow Up Plan Condition: STABLE Disposition: HOME/ ROUTINE Instructions: Depression, Adult (DC), Dizziness, Nonvertigo, (DC), Near Fainting (DC) Additional Instructions: 1. Transfer to psych floor today. 2. Follow up with physical therapy. 3. Follow up with PMD DR. Farrar. Referrals: Franca Fernández MD [Primary Care Provider] -
[2017-10-26 18:54] VITALS: BP 126/68; PULSE 72; TEMP 99.4
--- NOTE | 2017-10-26 22:25 | CON ---
DATE: HISTORY OF PRESENT ILLNESS: The patient is a 67-year-old single white female who has a psychiatric history of possible schizoaffective disorder versus schizophrenia versus major depressive disorder with psychotic symptoms, multiple prior hospitalizations, most recently at [facility] in 2006, in psychiatric treatment with in [place] and compliant with Lexapro 10 mg daily and Risperdal 2 mg at bedtime, who was admitted to the medical floor for evaluation of dizziness. Psychiatry was called due to the patient's psychiatric history. I met with the patient at bedside, and she is alert and oriented to month, year, location and circumstances. The patient's focus is fair and she is cooperative with questioning. The patient reports that she has been depressed despite compliance with medications of Lexapro 10 mg daily and Risperdal 2 mg at bedtime. The patient reports major stressors are pending eviction from her psychiatric residential apartment that she has been living in since 11/2012. The patient reports the main reason that she is being evicted is because her home is very messy. She has many, many papers that she does not want to clean up although they gave her 2 weeks to clean them up. The patient is a little vague regarding these papers and appears to be very resistant to throwing them out, and admits that there are excessive papers and that she does not want to throw them out. The patient indicates she would like to have the papers recycled; however, has not had the opportunity to do so. Her thought process is a little illogical as I questioned the fact that she might be evicted because of the papers and perhaps disposing of the papers would be a priority, and the patient appears ambivalent about the presented severity of circumstances. As mentioned, she is depressed, but she is not suicidal. She is hopeful about the future. The patient reports that she has a history of hallucination. She was hallucinating but initially when she was hospitalized; however, the hallucinations have improved since she was restarted on her medications. The patient also reports that there are some mold in her apartment; however, upon further clarification, the patient indicates that because she is not emptying out her home of the papers and it appears that there is garbage there and there appears to be also mold in her refrigerator, which is questionable whether she has been cleaning that properly as well. The patient reports that she has not been eating, but does not have any reason why. She has decreased appetite over the last couple of days though. The patient reports that she has been sleeping well, denies other major issues, denies any drug or alcohol use. She has been fairly calm and there had been no behavioral issues. Vital signs were reviewed by this provider as well as recent laboratory work, of which toxicology UDS was not obtained. PSYCHIATRIC HISTORY: The patient reports that she has been psychiatrically hospitalized many times, most recently at [facility] in 2006. She reports that she is currently prescribed Lexapro 10 mg and Risperdal 2 mg at bedtime by in [place]. Last follow up was 4 months ago because she canceled a few times. The patient reports that she had a suicide attempt a very long time ago; she had tried to drink Clorox and tried to suffocate herself. She has a chronic history of hallucinations, though improved at this time with Risperdal. SOCIAL HISTORY: The patient was born and raised in [place]. She has never been . She has no kids. She reports that she lives in psychiatric residential apartments since 11/2012; however, indicates that she has been threatened with an eviction if she does not clean up her residence in the next 2 weeks. The patient denies any drug or alcohol issues in the past. MEDICATIONS: Relevant psychiatric medications include Lexapro 10 mg daily as well as Risperdal 2 mg at bedtime. IMPRESSION: Schizoaffective disorder by history, rule out obsessive compulsive disorder, hoarding behaviors. RECOMMENDATIONS: The patient would benefit from Inpatient hospitalization due to depression and uncertainity of her current residential situation. It is possible her psychiatric condition is contributing to safety hazard associated with hoarding behaviors, although it is unclear now as the patient is guarded during the course of my interview. I will continue with Lexapro; however, increase to 15 mg daily, and continue with Risperdal 2 mg at bedtime as well as initiate Klonopin 0.25 in the a.m. and at bedtime to help with anxiety. The patient can be transferred to the psychiatric unit once she is medically cleared. This has been communicated with Dr. Rushing. Bo Lee MD [facility] # [id number]
== END 2017-10-26 20:40 ==
LOC: ED 07:55 → ERH 11:13 → MERGE 11:13 → ERH 17:05 → 2RSO 18:29
PROVIDERS: ADMIT Internal Medicine; ATTEND Internal Medicine
DX: R42 Dizziness and giddiness (principal); F32.9 Major depressive disorder, single episode, unspecified; F25.9 Schizoaffective disorder, unspecified; N39.0 Urinary tract infection, site not specified; I10 Essential (primary) hypertension; E78.5 Hyperlipidemia, unspecified; K21.9 Gastro-esophageal reflux disease without esophagitis; J44.9 Chronic obstructive pulmonary disease, unspecified; G62.9 Polyneuropathy, unspecified; F42.3 Hoarding disorder; R26.9 Unspecified abnormalities of gait and mobility; F51.04 Psychophysiologic insomnia; Z88.2 Allergy status to sulfonamides
CPT/HCPCS: 36415; 70450; 71045; 80053; 81001; 82803; 82948; 83036; 83690; 83735; 84439; 84443; 84484; 84550; 85025; 85610; 85651; 85730; 86140; 87086; 93005; 93306; 93880; 94640; 94760; 97116; 97161; 97530; 99285; G0378; G0480; G8978; G8979; J7040

== ENCOUNTER 2017-10-26 20:40 | Inpatient (IN) | payer MEDICARE, OTHER ==
[2017-10-25 12:22] VITALS: BMI 24.9
[2017-10-26] MEDS ORDERED: Alum-Mag Hydrox-Simethicone Susp (30 mL) PO PRN (22:28)
[2017-10-27 01:55] VITALS: O2SAT 96
--- NOTE | 2017-10-27 03:07 | PCM.BM ---
<Jim Ann - Last Filed: 10/27/17 03:03> Treatment Plan Problems - Problems identified on initial assessmt Ineffective coping Date Initiated: 10/26/17 Time Initiated: 21:15 Assessment reference: NA Status: Active Priority: 1 Hopelessness/Helplessness Date Initiated: 10/26/17 Time Initiated: 21:15 Assessment reference: NA Status: Active Priority: 2 Altered Sleep Patterns Date Initiated: 10/26/17 Time Initiated: 21:15 Assessment reference: NA Status: Active Priority: 4 Medication Non-Compliance Date Initiated: 10/26/17 Time Initiated: 21:15 Status: Active Priority: 3 Treatment assets and liabiliti Patient Assests: cooperative, self-reliant, negotiates basic needs, cognitively intact Patient Liabilities: live alone, financial problems, poor support system, medical problems - Milieu Protocol Maintain good personal hygiene: daily Encourage regular showers, daily Remind patient to perform daily oral care, daily Assist patient to perform ADL's Conduct patient checks and document Observation sheet: Q15 minutes Maintain personal safety: every shift Educate patient to report safety concerns to staff, every shift Monitor environment for contraband/sharps Medication safety: Monitor for expected outcome, potential side effects: every shift, Assess barriers to learning: every shift, Assess readiness for medication education: every shift Discharge/Continuing Care - Education Needs Education Needs: Patient Medication, Patient Diagnosis/Disease Process, Patient Coping Skills, Patient Placement options, Patient Community resources, Patient Health Practices/Safety - Discharge Discharge Criteria: Tolerates medication w/o severe side effects, Normal sleep pattern, Ability to care for self <Bo Lee - Last Filed: 10/27/17 10:49> - Diagnosis (1) Hallucination Status: Acute Interventions: Risperdal 2 mg HS for hallucinations 10/27/17 10:49 (2) Major depression Status: Acute Interventions: Lexapro 15 mg po daily for depression and anxiety 10/27/17 10:49 <Pratibha Soliman - Last Filed: 10/29/17 16:25> Family Contact Family involvement: No known Family/SO - Outside Agency Supportive Housing Care involvment: Information-sharing Agency contact name: Supportive [facility]
[2017-10-27 08:17] LABS: GLUCOSE,FASTING 86 mg/dL (65-110); HDL CHOLESTEROL 72 mg/dL (29-60)
[2017-10-27 08:28] LABS: LDL CHOLESTEROL 52 mg/dL (0-129)
[2017-10-27] MEDS: Arformoterol 15 mcg/2 ml Inh Sol IH SCH ×2 (09:08→23:02)
[2017-10-27] MEDS: Budesonide 0.5 mg/2 ml Inhal Susp UD IH SCH ×2 (09:08→23:02)
[2017-10-27] MEDS: Omega-3-Acid Ethyl Esters 1 GM Cap PO SCH (09:14)
[2017-10-27] MEDS: Pantoprazole 40 mg EC Tab PO SCH (09:23)
--- NOTE | 2017-10-27 10:49 | PCM.PSYCH ---
Initial Psychiatric Evaluation - Initial Psychiatric Evaluation Type of Admission: Voluntary Legal Status: Capacity History of Present Illness and Precipitating Events: Patient is a single 67-year-old white female with a psychiatric history of possible schizoaffective disorder versus schizophrenia versus major depressive disorder with psychotic symptoms, rule out OCD, multi problem prior hospitalizations most recently a [facility], in psychiatric treatment with Dr. Melony santamaria in [place], reportedly compliant with Lexapro 10 mg daily in respite or 2 mg at bedtime except the last couple days who was admitted to the medical floor on 10/25/17 for evaluation of dizziness. Psychiatry was consult it due to patient having a prior psychiatric history. I evaluate a patient yesterday and recommended psychiatric hospital station due to continued depression, hallucinations as well as possible hoarding behavior so severe that it an evection is pending Patient was medically cleared and transferred to psychiatry yesterday on October 26, 2017. I met with patient bedside and she remains alert and oriented to month, year, location circumstances. Her focus remains fair and she is cooperative for questioning. She remembers me from my introduction and questioning yesterday. Reports that she feels depressed, helpless and anxious. She denies having any thoughts of harming herself or others. Hallucinations have improved and she denies any current perceptual disturbance. Thought process is coherent and responses are consistent. She doesn't appear to be responding to internal stimuli though she is a little unkempt and oddly related. As noted in my consultation yesterday patient reports the main reason that she is feeling depressed and anxious is because she is a pending eviction from her apartment. She reports that she has lived in the psychiatric residential apartment since November 2012 however has been threatened with eviction because her home is messy. Patient was vague about the the exact complaints about the condition of her home but does indicate that she has "too many papers" and she refuses to throw them out. Patient also reports that she has mold in her home and insinuates that the excess papers contribute to this condition. Patient reports that she doesn't want to throw the papers into the garbage and would prefer to recycle. She hasn't given an explanation why this hasn't occurred. She is illogical in that her priority is to recycle her papers rather than say ensure the security out of her home. Patient reports that she was initially hallucinating when she was medically hospitalize however this has improved since initiation of risperdal 2 mg HS. Other symptoms include poor appetite over last few days. She denies any other major issues and reports that she has been sleeping well except for last night. Denies drug or alcohol use. Patient has been calm and in control on the unit and there have been no behavioral issues. She has been tolerating the changes to her medications specifically Lexapro was increased from 10 mg daily to 15 mg daily and Risperdal was continued at 2 mg POHS. Patient does complain of restless sleep last night and requests sleeping agent in lieu of Klonopin 0.25 mg HS which she feels contributed to her difficulty sleeping. PSYCHIATRIC HISTORY Patient reports that she has been psychiatrically hospitalized multiple times, most recently at [facility] into 2006. Patient bows up with Dr. Serna (sp?) in [place]. Her last follow up was four months ago because she need to cancel a few times. Patient reports that she is prescribed Lexapro 10 mg daily and Risperdal 2 mg HS which she did it take for a couple days prior to admission. Patient reports that history of suicide attempts many years ago, she tried to drink Clorox and tried to suffocate herself. Patient has a chronic history of hallucinations which generally improve with Risperdal SOCIAL HISTORY Patient was born and raised in [place]. Shes never been and has no children. Patient reported she resides in a psychiatric residential apartment since November 2012. Patient reports that she has been threatened with eviction if she just does not clean up her residence within the next two weeks. Patient denies any drug or alcohol issues in past or present. Per Dr. Louise Coffey, PGY-1 progress note dated 10/26/17. Patient's primary physician was contacted. His description of the patient sounds like patient may be malingering, factitious, or suffers from somatization/illness anxiety. Current Medications: Active Medications Generic Name Dose Route Start Last Admin Trade Name Freq PRN Reason Stop Dose Admin Acetaminophen 650 mg 10/26/17 22:28 Tylenol 325mg Tab PO Q4 PRN Pain, moderate (4-7) Al Hydrox/Mg Hydrox/Simethicone 30 ml 10/26/17 22:28 Maalox Plus 30 Ml PO DAILY PRN Upset Stomach Arformoterol Tartrate 15 mcg 10/27/17 08:00 Brovana IH [id number] [facility] Atorvastatin Calcium 10 mg 10/27/17 17:00 Lipitor PO DIN [facility] Budesonide 0.5 mg 10/27/17 08:00 Pulmicort Respules IH [id number] [facility] Clonazepam 0.25 mg 10/26/17 22:00 10/26/17 23:04 Klonopin PO 0.25 mg AMHS [facility] Administration Protocol Escitalopram Oxalate 15 mg 10/27/17 08:00 Lexapro PO DAILY [facility] Lisinopril 10 mg 10/27/17 08:00 Zestril PO DAILY [facility] Magnesium Hydroxide 30 ml 10/26/17 22:28 Milk Of Magnesia PO DAILY PRN Constipation Metoprolol Tartrate 25 mg 10/27/17 08:00 Lopressor PO DAILY [facility] Nitrofurantoin Macrocrystals 100 mg 10/26/17 22:55 10/26/17 23:04 Macrobid PO 10/27/17 22:00 100 mg Q12 [facility] Administration Protocol [id number] Ethyl Esters 2 gm 10/27/17 08:00 Lovaza PO DAILY [facility] Pantoprazole Sodium 40 mg 10/27/17 08:00 Protonix Ec Tab PO DAILY [facility] Risperidone 2 mg 10/26/17 22:30 10/26/17 23:04 Risperdal Tab PO 2 mg HS [facility] Administration Protocol Past Psychiatric History - Past Psychiatric History Pertinent Medical Hx (Current Medical&Sleep Prob, Allergies): Allergies Allergy/AdvReac Type Severity Reaction Status Date / Time Sulfa (Sulfonamide Allergy RASH Verified 10/26/17 22:25 Antibiotics) Atorvastatin Calcium 10 mg PO DIN 10/25/17 Escitalopram [Lexapro] 10 mg PO DAILY 10/25/17 Fluticasone/Salmeterol 250/50 [Advair Diskus] 1 puff IH Q12 10/25/17 Lisinopril [Zestril] 10 mg PO DAILY 10/25/17 Metoprolol Tartrate [Lopressor] 25 mg PO DAILY 10/25/17 Omeprazole 40 mg PO DAILY 10/25/17 Ranitidine HCl [Zantac] 150 mg PO DAILY 10/25/17 risperiDONE [RisperDAL] 2 mg PO HS 10/25/17 DSM 5 DX - DSM 5 DSM 5 Diagnosis: Schizoaffective Disorder r/o OCD r/o JONATHON - Recommended/Plan of Treatment Treatment Recommendations and Plan of Treatment: * group, milieu and supportive tx * Lexapro 15 mg po daily for depression and anxiety * Risperdal 2 mg HS for hallucinations * Sonata 5 mg po HS prn: insomnia * Vitals reviewed and noted below: Selected Entries 10/27/17 10/27/17 10/27/17 07:15 09:14 09:22 Temperature 97.6 F Pulse Rate 75 75 75 Respiratory 20 Rate Blood Pressure 112/56 L 112/60 112/60 * Awaiting medical f/u * New floor labs noted below: 10/27/17 10/27/17 07:30 07:30 Fasting Glucose 86 Triglycerides 39 Cholesterol 143 LDL Cholesterol Direct 52 HDL Cholesterol 72 H TSH 3rd Generation 2.26
[2017-10-27] MEDS ORDERED: Lubricant Eye Drops UD OD PRN (12:30)
--- NOTE | 2017-10-27 12:33 | CP.PCM.CON ---
<Robert Chappell - Last Filed: 10/27/17 12:21> History of Present Illness - History of Present Illness History of Present Illness: Subjective: This patient is a 67 year old female with a past medical history of hypertension, hyperlipidemia, cardiac catherization w/o stent placement, COPD, GERD, Chronic Neuropathy, stress incontinence, and possible schizoaffective disorder who was recently transferred from the hospital to the psych unit after beign evaluated and treated for dizziness. Medicine team was consulted to manage patients chronic conditions. States that her dizziness has resolved. Admits to dry right eye. Denies fever, chills, chest pain, shortness of breath, abdominal pain, nausea, vomiting, diarrhea, constipation, and urinary symptoms. 12-point review of systems negative except as indicated in the HPI PMHx: hypertension, hyperlipidemia, cardiac catherization w/o stent placement , COPD, GERD, Chronic Neuropathy, and possible schizoaffective disorder, Stress Incontinence PSHx: Spina Bifida Surgery (infancy), tonsillectomy, septorhinoplasty, Allergies: Patient Denied. Per chart, Sulfa Antibiotics Social: Lives in [address] with other people, says she is getting moved to homeless custodial, Denies tobacco, alcohol, or illicit drug use. Has a cousin in [place] [facility] [place]4 [place] FamHx: Non-Contribitory Meds: Please see SEP PMD: Dr. Charan Valdivia Psychiatrist: Sees Psychiatrist in [place] Physical Examination: - Constitutional Appears: Non-toxic, No Acute Distress, Unkempt - Head Exam Head Exam: ATRAUMATIC, NORMAL INSPECTION, NORMOCEPHALIC - Eye Exam Eye Exam: EOMI, Normal appearance - ENT Exam ENT Exam: Mucous Membranes Moist - Respiratory Exam Respiratory Exam: Clear to Auscultation Bilateral, NORMAL BREATHING PATTERN. absent: Decreased Breath Sounds, Rales, Rhonchi - Cardiovascular Exam Cardiovascular Exam: RRR, +S1, +S2. absent: Diastolic murmur, JVD, Systolic Murmur - GI/Abdominal Exam GI & Abdominal Exam: Normal Bowel Sounds, Soft. absent: Distended, Tenderness - Extremities Exam Extremities exam: Positive for: normal capillary refill. Negative for: pedal edema - Back Exam Back exam: absent: CVA tenderness (L), CVA tenderness (R) - Neurological Exam Neurological exam: Patient is awake, alert, responds to verbal stimuli, answers questions appropriately, follows commands, and moves extremities past midline - Skin Skin Exam: Dry, Intact, Normal Color, Warm Assessment and Plan: Patient is a 67 year old female with a past medical history of hypertension, hyperlipidemia, cardiac catherization w/o stent placement, COPD, GERD, Chronic Neuropathy, stress incontinence, and possible schizoaffective disorder who is admitted to the psychiatry unit. Medicine team consulted to manage patients chronic conditions Keratoconjunctivitis Sicca - artificial tears Hx of HTN - blood pressure reviewed, trended, and appreciated- within normal limits - continue metoprolol 25mg Daily - continue Lisinopril 10 Daily Hx of HLD - continue home lipitor 10mg PO DIN and lovaza 2mg Daily Hx of COPD - continue Advair Diskus Q12H PRN Hx of GERD - continue protonix 40 Daily Depression/Psychiatric Hx: - as per psych Prophylaxis: - GI ppx- Protonix - DVT ppx- SCD's Patient seen, case discussed with, and plan approved by attending physician, Dr. Rushing. Medicine team will sign off at this time. Please reconsult if needed. Thank you for the opportunity to participate in the care of this patient. Past Patient History - Infectious Disease Hx of Infectious Diseases: None - Tetanus Immunizations Tetanus Immunization: Unknown - Past Social History Smoking Status: Unknown If Ever Smoked - CARDIAC Hx Hypertension: Yes - PULMONARY Hx Chronic Obstructive Pulmonary Disease (COPD): Yes - NEUROLOGICAL Hx Neurological Disorder: Yes Hx Dizziness: Yes - HEENT Hx HEENT Problems: No - RENAL Hx Chronic Kidney Disease: No - ENDOCRINE/METABOLIC Hx Endocrine Disorders: No - HEMATOLOGICAL/ONCOLOGICAL Hx Blood Disorders: No - INTEGUMENTARY Hx Dermatological Problems: Yes Other/Comment: 10-25-17 FADING BRUISE TO LEFT THIGH.DENIES FALLING.HIT IT ON SOMETHING. LARGE HORIZONTAL SCAR TO LOWER BACK.HAS A HAIRY BACK. - MUSCULOSKELETAL/RHEUMATOLOGICAL Hx Musculoskeletal Disorders: Yes Hx Falls: Yes Hx Unsteady Gait: Yes - GASTROINTESTINAL Hx Gastrointestinal Disorders: No - GENITOURINARY/GYNECOLOGICAL Hx Genitourinary Disorders: Yes Hx Urinary Tract Infection: Yes Other/Comment: STRESS INCONTINENCE,URGENCY. - PSYCHIATRIC Hx Substance Use: No - SURGICAL HISTORY Hx Surgeries: Yes Hx Tonsillectomy: Yes Other/Comment: spina bifida,rhinoplasty - ANESTHESIA Hx Anesthesia: Yes Hx Anesthesia Reactions: No Hx Malignant Hyperthermia: No Meds Allergies/Adverse Reactions: Allergies Allergy/AdvReac Type Severity Reaction Status Date / Time Sulfa (Sulfonamide Allergy RASH Verified 10/26/17 22:25 Antibiotics) - Medications Medications: Current Medications Acetaminophen (Tylenol 325mg Tab) 650 mg PO Q4 PRN PRN Reason: Pain, moderate (4-7) Al Hydrox/Mg Hydrox/Simethicone (Maalox Plus 30 Ml) 30 ml PO DAILY PRN PRN Reason: Upset Stomach Arformoterol Tartrate (Brovana) 15 mcg IH [id number] [facility] Last Admin: 10/27/17 09:08 Dose: 15 mcg Atorvastatin Calcium (Lipitor) 10 mg PO DIN [facility] Budesonide (Pulmicort Respules) 0.5 mg IH [id number] [facility] Last Admin: 10/27/17 09:08 Dose: 0.5 mg Escitalopram Oxalate (Lexapro) 15 mg PO DAILY [facility] Last Admin: 10/27/17 09:14 Dose: 15 mg Lisinopril (Zestril) 10 mg PO DAILY [facility] Last Admin: 10/27/17 09:14 Dose: 10 mg Magnesium Hydroxide (Milk Of Magnesia) 30 ml PO DAILY PRN PRN Reason: Constipation Metoprolol Tartrate (Lopressor) 25 mg PO DAILY [facility] Last Admin: 10/27/17 09:22 Dose: 25 mg Nitrofurantoin Macrocrystals (Macrobid) 100 mg PO Q12 [facility] PRN Reason: Protocol Stop: 10/27/17 22:00 Last Admin: 10/27/17 06:27 Dose: 100 mg Gnfco-[id number] Ethyl Esters (Lovaza) 2 gm PO DAILY [facility] Last Admin: 10/27/17 09:14 Dose: 2 gm Pantoprazole Sodium (Protonix Ec Tab) 40 mg PO DAILY [facility] Last Admin: 10/27/17 09:23 Dose: 40 mg Risperidone (Risperdal Tab) 2 mg PO HS [facility] PRN Reason: Protocol Last Admin: 10/26/17 23:04 Dose: 2 mg Zaleplon (Sonata) 5 mg PO HS PRN PRN Reason: Insomnia Results - Vital Signs Recent Vital Signs: Last Vital Signs Temp 97.6 F 10/27/17 07:15 Pulse 75 10/27/17 09:22 Resp 20 10/27/17 07:15 BP 112/60 10/27/17 09:22 Pulse Ox 96 10/26/17 21:15 - Labs Labs: Laboratory Results - last 24 hr 10/27/17 10/27/17 07:30 07:30 Fasting Glucose 86 Triglycerides 39 Cholesterol 143 LDL Cholesterol Direct 52 HDL Cholesterol 72 H TSH 3rd Generation 2.26 <Rangasamy,Ajantha - Last Filed: 10/27/17 13:43> Meds - Medications Medications: Current Medications Acetaminophen (Tylenol 325mg Tab) 650 mg PO Q4 PRN PRN Reason: Pain, moderate (4-7) Al Hydrox/Mg Hydrox/Simethicone (Maalox Plus 30 Ml) 30 ml PO DAILY PRN PRN Reason: Upset Stomach Arformoterol Tartrate (Brovana) 15 mcg IH [id number] [facility] Last Admin: 10/27/17 09:08 Dose: 15 mcg Artificial Tears (Refresh Opth Soln) 0.3 ml OD DAILY PRN PRN Reason: Dry eyes Atorvastatin Calcium (Lipitor) 10 mg PO DIN [facility] Budesonide (Pulmicort Respules) 0.5 mg IH [id number] [facility] Last Admin: 10/27/17 09:08 Dose: 0.5 mg Escitalopram Oxalate (Lexapro) 15 mg PO DAILY [facility] Last Admin: 10/27/17 09:14 Dose: 15 mg Lisinopril (Zestril) 10 mg PO DAILY [facility] Last Admin: 10/27/17 09:14 Dose: 10 mg Magnesium Hydroxide (Milk Of Magnesia) 30 ml PO DAILY PRN PRN Reason: Constipation Metoprolol Tartrate (Lopressor) 25 mg PO DAILY [facility] Last Admin: 10/27/17 09:22 Dose: 25 mg Nitrofurantoin Macrocrystals (Macrobid) 100 mg PO Q12 [facility] PRN Reason: Protocol Stop: 10/27/17 22:00 Last Admin: 10/27/17 06:27 Dose: 100 mg [id number] Ethyl Esters (Lovaza) 2 gm PO DAILY [facility] Last Admin: 10/27/17 09:14 Dose: 2 gm Pantoprazole Sodium (Protonix Ec Tab) 40 mg PO DAILY [facility] Last Admin: 10/27/17 09:23 Dose: 40 mg Risperidone (Risperdal Tab) 2 mg PO HS [facility] PRN Reason: Protocol Last Admin: 10/26/17 23:04 Dose: 2 mg Zaleplon (Sonata) 5 mg PO HS PRN PRN Reason: Insomnia Results - Vital Signs Recent Vital Signs: Last Vital Signs Temp 97.6 F 10/27/17 07:15 Pulse 75 10/27/17 09:22 Resp 20 10/27/17 07:15 BP 112/60 10/27/17 09:22 Pulse Ox 96 10/26/17 21:15 - Labs Labs: Laboratory Results - last 24 hr 10/27/17 10/27/17 07:30 07:30 Fasting Glucose 86 Triglycerides 39 Cholesterol 143 LDL Cholesterol Direct 52 HDL Cholesterol 72 H TSH 3rd Generation 2.26 Attending/Attestation - Attestation I have personally seen and examined this patient.: Yes I have fully participated in the care of the patient.: Yes I have reviewed all pertinent clinical information: Yes Notes (Text): 10/27/17 13:41 attending note; Patient seen and examined with resident in psychiatric floor. Patient is alert and awake. Denies any complaints. Tolerating diet. Ambulating fine. This patient is a 67 year old female with a past medical history of hypertension, hyperlipidemia, COPD, GERD, Chronic Neuropathy, stress incontinence, and possible schizoaffective disorder who is admitted for evaluation of dizziness the medical side.work up including cardiac enzymes negative. Carotid Dopplers without significant stenosis. Echocardiogram normal. patient was transferred to the psychiatric floor for stress management. patient is going through a lot of stress due to possible eviction from her apartment. patient is also complaining of severe depression. Denies any suicidal ideation. Physical therapy evaluation appreciated. Patient usually walks with a cane. Patient had spina bifida surgery.
[2017-10-28] MEDS: Budesonide 0.5 mg/2 ml Inhal Susp UD IH SCH ×2 (08:25→23:29)
[2017-10-28] MEDS: Arformoterol 15 mcg/2 ml Inh Sol IH SCH ×2 (08:25→23:29)
[2017-10-28] MEDS: Pantoprazole 40 mg EC Tab PO SCH (09:30)
[2017-10-28] MEDS: Omega-3-Acid Ethyl Esters 1 GM Cap PO SCH (09:30)
--- NOTE | 2017-10-28 10:12 | PCM.PYCHPN ---
Psychiatric Progress Note - Psychiatric Progress Note Patient seen today, length of contact: 25 min Problems Identified/Issues Discussed: History of Present Illness and Precipitating Events: Patient is a single 67-year-old white female with a psychiatric history of possible schizoaffective disorder versus schizophrenia versus major depressive disorder with psychotic symptoms, rule out OCD, multi problem prior hospitalizations most recently a [facility], in psychiatric treatment with Dr. Melony santamaria in [place], reportedly compliant with Lexapro 10 mg daily in respite or 2 mg at bedtime except the last couple days who was admitted to the medical floor on 10/25/17 for evaluation of dizziness. Psychiatry was consult it due to patient having a prior psychiatric history. I evaluate a patient yesterday and recommended psychiatric hospital station due to continued depression, hallucinations as well as possible hoarding behavior so severe that it an evection is pending Patient was medically cleared and transferred to psychiatry yesterday on October 26, 2017. I met with patient bedside and she remains alert and oriented to month, year, location circumstances. Her focus remains fair and she is cooperative for questioning. She remembers me from my introduction and questioning yesterday. Reports that she feels depressed, helpless and anxious. She denies having any thoughts of harming herself or others. Hallucinations have improved and she denies any current perceptual disturbance. Thought process is coherent and responses are consistent. She doesn't appear to be responding to internal stimuli though she is a little unkempt and oddly related. As noted in my consultation yesterday patient reports the main reason that she is feeling depressed and anxious is because she is a pending eviction from her apartment. She reports that she has lived in the psychiatric residential apartment since November 2012 however has been threatened with eviction because her home is messy. Patient was vague about the the exact complaints about the condition of her home but does indicate that she has "too many papers" and she refuses to throw them out. Patient also reports that she has mold in her home and insinuates that the excess papers contribute to this condition. Patient reports that she doesn't want to throw the papers into the garbage and would prefer to recycle. She hasn't given an explanation why this hasn't occurred. She is illogical in that her priority is to recycle her papers rather than say ensure the security out of her home. Patient reports that she was initially hallucinating when she was medically hospitalize however this has improved since initiation of risperdal 2 mg HS. Other symptoms include poor appetite over last few days. She denies any other major issues and reports that she has been sleeping well except for last night. Denies drug or alcohol use. Patient has been calm and in control on the unit and there have been no behavioral issues. She has been tolerating the changes to her medications specifically Lexapro was increased from 10 mg daily to 15 mg daily and Risperdal was continued at 2 mg POHS. Patient does complain of restless sleep last night and requests sleeping agent in lieu of Klonopin 0.25 mg HS which she feels contributed to her difficulty sleeping. PSYCHIATRIC HISTORY Patient reports that she has been psychiatrically hospitalized multiple times, most recently at [facility] into 2006. Patient bows up with Dr. Serna (sp?) in [place]. Her last follow up was four months ago because she need to cancel a few times. Patient reports that she is prescribed Lexapro 10 mg daily and Risperdal 2 mg HS which she did it take for a couple days prior to admission. Patient reports that history of suicide attempts many years ago, she tried to drink Clorox and tried to suffocate herself. Patient has a chronic history of hallucinations which generally improve with Risperdal SOCIAL HISTORY Patient was born and raised in [place]. Shes never been and has no children. Patient reported she resides in a psychiatric residential apartment since November 2012. Patient reports that she has been threatened with eviction if she just does not clean up her residence within the next two weeks. Patient denies any drug or alcohol issues in past or present. Per Dr. Louise Coffey, PGY-1 progress note dated 10/26/17. Patient's primary physician was contacted. His description of the patient sounds like patient may be malingering, factitious, or suffers from somatization/illness anxiety. PROGRESS NOTE 10/28/17 I met with patient bedside again today. She alert, cooperative and her grooming is a little improved since yesterday. Oriented to month, year, location and circumstances. Her focus and eye contact remain fair. Patient remains depressed and anxious. Her affect is neutral. She denies having any thoughts of harming herself or others. Hallucinations have not returned since she was admitted to the unit. . Thought process is coherent. and Responses are relevant and consistent. She doesn't appear to be responding to internal stimuli though she is a little oddly related. Patient has been calm and in control on the unit and there have been no behavioral issues. She has attended a few groups but with minimal engagement so far. Interactive with select peers. Patient has been tolerating the changes to her medications, specifically Lexapro was increased from 10 mg daily to 15 mg daily x2 days ago and Risperdal was continued at 2 mg po HS. Patient also reports improved sleep with initiation of sonata 5 mg HS prn last night. Diagnostic Results: Schizoaffective Disorder r/o OCD r/o JONATHON Mental Status Examination - Cognitive Function Orientation: Person, Place, Situation Memory: Impaired Attention: WNL Association: Loose Fund of Knowledge: Poor - Mood Mood: Depressed, Anxious - Affect Affect: Constricted, Flat - Speech Speech: Appropriate - Formal Thought Process Formal Thought Process: Hallucinations (Denies hallucinations since transfer to the unit) Goal/Treatment Plan - Goal/Treatment Plan Progress Toward Problem(s) and Goals/Treatment Plan: * group, milieu and supportive tx * Lexapro 15 mg po daily for depression and anxiety * Risperdal 2 mg HS for hallucinations * Sonata 5 mg po HS prn: insomnia * Appreciate f/u by Dr. Rushing on 10/27/17 * Vitals reviewed and noted below: 10/28/17 10/28/17 07:52 09:30 Temperature 98.7 F Pulse Rate 67 67 Respiratory 20 Rate Blood Pressure 119/60 119/60 * New floor labs noted below: 10/27/17 10/27/17 07:30 07:30 Fasting Glucose 86 Triglycerides 39 Cholesterol 143 LDL Cholesterol Direct 52 HDL Cholesterol 72 H TSH 3rd Generation 2.26
[2017-10-29] MEDS: Arformoterol 15 mcg/2 ml Inh Sol IH SCH ×2 (08:13→22:52)
[2017-10-29] MEDS: Budesonide 0.5 mg/2 ml Inhal Susp UD IH SCH ×2 (08:13→22:52)
[2017-10-29] MEDS: Pantoprazole 40 mg EC Tab PO SCH (08:55)
[2017-10-29] MEDS: Omega-3-Acid Ethyl Esters 1 GM Cap PO SCH (08:55)
--- NOTE | 2017-10-29 14:44 | PCM.PYCHPN ---
Psychiatric Progress Note - Psychiatric Progress Note Patient seen today, length of contact: 30 minute Patient Chief Complaint: "I had hallucinations, I saw the zhang, it was yellow RAMIREZ-RAMIREZ-RAMIREZ, it looks like cheese, I have to watch TV for two hours a day to motivate myself, this is what I was advised, my landlord wants to evict me because I collected too much paper , you know I've received much mail, he wants me out, probably he likes my neighbour upstairs, he is afraid of fire, you know he is smoking, but he wants to evict me, yes, yes". Problems Identified/Issues Discussed: Suicide/ homicide prevention, past psychiatric h/o, current psychiatric symptoms , medical problems, risk/benefits and alternatives of medications, medications compliance, coping strategies, substance abuse h/o, relapse prevention, importance of follow up with psychiatrist and therapist, discharge plan. Medical Problems: hypertension, hyperlipidemia, cardiac catherization w/o stent placement, COPD, GERD, Chronic Neuropathy, stress incontinence, dizziness. Diagnostic Results: Lab Results 10/27/17 07:30: RPR Nonreactive 10/27/17 07:30: TSH 3rd Generation 2.26 10/27/17 07:30: Fasting Glucose 86, Triglycerides 39, Cholesterol 143, LDL Cholesterol Direct 52, HDL Cholesterol 72 H Vital Signs Temp Pulse Resp BP Pulse Ox 10/29/17 07:33 97.8 F 84 20 115/65 10/28/17 15:00 75 96/59 L 10/28/17 09:31 67 119/60 10/28/17 09:30 67 119/60 10/28/17 07:52 98.7 F 67 20 119/60 10/27/17 09:22 75 112/60 10/27/17 09:14 75 112/60 10/27/17 07:15 97.6 F 75 20 112/56 L 10/26/17 21:15 98.5 F 68 20 141/68 96 DSM 5 Symptoms Update: Patient is a single 67-year-old white female with a psychiatric history of possible schizoaffective disorder versus schizophrenia versus major depressive disorder with psychotic symptoms, rule out OCD, multi problem prior hospitalizations most recently a [facility] [id number], in psychiatric treatment with Dr. Fong in [place], reportedly compliant with medications and follow up appts, initially pt was admitted to the medical floor for dizziness. Patient was transferred to the psychiatric inpatient unit for evaluation and stabilization of depression, hallucinations as well as possible hoarding behavior so severe that patient is facing eviction (cannot exclude pt might be paranoid and it is incorrect information). patient was seen today at the treatment team meeting, Dr. Lee's notes reviewed , discussed with nursing staff, patient pharmacy was called, medication confirmed, phone number [phone] [facility] pharmacy. Patient presented to be disorganized in her thoughts and behavior, patient's affect was incongruent with her mood and presentation, for example patient was explaining her suicidal attempt by ingesting bleach at the same time patient was smiling and even laughing. patient was guarded, paranoid, disorganized in her thoughts and behavior, patient complained that she had not history of memory problems at the same time patient was able to give the brand and generic names of all of her meds and her psychiatrist and PMD names. "I had hallucinations, I saw the zhang, it was yellow RAMIREZ-RAMIREZ-RAMIREZ, it looks like cheese, I have to watch TV for two hours a day to motivate myself, this is what I was advised, my landlord wants to evict me because I collected too much paper , you know I've received much mail, he wants me out, probably he likes my neighbour upstairs, he is afraid of fire, you know he is smoking, but he wants to evict me, yes, yes". patient said that she had good response on Zyprexa, willing to be resumed on that medication. As per pharmacy patient wasn't following medications: Risperdal 2 mg by mouth at the night time prescribed by Dr. Rick Hanna on 03/2018 Vitamin D3 2000 unit one pill daily Pro air Lactulose 10 mg at bedtime Metoprolol 25 mg daily Atorvastatin 10 mg daily lisinopril 10 mg daily Oxybutynin 5 mg daily Advair 250/50 Omeprazole 40 mg daily Gabapentin 300 mg at bedtime Ranitidine 150 mg twice a day Wadley-3 Melatonin Vitamin E 400 unit daily Loratadine 10 mg daily Baclofen 10 mg twice a day Multivitamins daily Colace 100 mg daily Risperdal 2 mg at the night time prescribed by Dr. Rick Hanna on October 19 Remeron 1010 mg daily same prescriber seemed today to feel Lexapro 10 mg daily same prescriber same date of refill medication least was filled in to the chart, medications resumed patient wants to be situation from Risperdal to Zyprexa, risk, benefits, alternatives discussed with the patient. Impression: Rule out schizophrenia, rule out schizoaffective disorder Medication Change: Yes (Risperdal discontinued, Zyprexa Zydis 5 mg in the morning time at the night) Medical Record Reviewed: Yes Consults ordered or reviewed: medical consult appreciated Mental Status Examination - Cognitive Function Orientation: Person, Place, Situation Memory: Impaired Attention: WNL Association: Loose Fund of Knowledge: Poor - Mood Mood: Depressed, Anxious - Affect Affect: Constricted, Flat - Speech Speech: Appropriate - Formal Thought Process Formal Thought Process: Hallucinations (Denies hallucinations since transfer to the unit, but thought process disorganized), Delusions - Suicidal Ideation Suicidal Ideation: No - Homicidal Ideation Homicidal Ideation: No Goal/Treatment Plan - Goal/Treatment Plan Need for Continued Stay: Remain at risks for inpatient hospitalization, Severe depression anxiety, Discharge may exacerbated symptoms, Severe functional impairment Progress Toward Problem(s) and Goals/Treatment Plan: milieu, structure, supportive therapy Medications were confirmed by pharmacy Risperdal discontinued Zyprexa anxiety as 5 mg at the morning time at the nighttime for psychosis and mood stabilization Lexapro was increased to 50 mg daily for depression and anxiety So not as needed for insomnia ICMS worker will be called for collaterals Medical consult appreciated, see medical team note for more detailed info SW consultation for discharge plan and social issues Med management (specify the name, doses, plan to titrate or wean it off) Family involvement Follow up on labs Will monitor closely Pt was educated about risk/benefits and alternatives of medications, coping strategies (safety plan, suicide prevention), relapse prevention, importance of follow up with psychiatrist and therapist, stay away from drugs/alcohol/smoking Estimated Date of D/C: 11/05/17
[2017-10-29] MEDS: OLANZapine 5 mg Disintegrating Tab PO SCH (21:30)
[2017-10-30] MEDS: Arformoterol 15 mcg/2 ml Inh Sol IH SCH (08:28)
[2017-10-30] MEDS: Budesonide 0.5 mg/2 ml Inhal Susp UD IH SCH (08:28)
[2017-10-30] MEDS: Pantoprazole 40 mg EC Tab PO SCH (08:56)
[2017-10-30] MEDS: Cholecalciferol 1,000 INTLU TAB PO SCH (08:56)
[2017-10-30] MEDS: Omega-3-Acid Ethyl Esters 1 GM Cap PO SCH (08:57)
--- NOTE | 2017-10-30 13:33 | PCM.PYCHPN ---
Psychiatric Progress Note - Psychiatric Progress Note Patient seen today, length of contact: 30 minute Patient Chief Complaint: "I she little better, so far so good" Problems Identified/Issues Discussed: Suicide/ homicide prevention, past psychiatric h/o, current psychiatric symptoms , medical problems, risk/benefits and alternatives of medications, medications compliance, coping strategies, substance abuse h/o, relapse prevention, importance of follow up with psychiatrist and therapist, discharge plan. Medical Problems: hypertension, hyperlipidemia, cardiac catherization w/o stent placement, COPD, GERD, Chronic Neuropathy, stress incontinence, dizziness. Diagnostic Results: Lab Results 10/27/17 07:30: RPR Nonreactive 10/27/17 07:30: TSH 3rd Generation 2.26 10/27/17 07:30: Fasting Glucose 86, Triglycerides 39, Cholesterol 143, LDL Cholesterol Direct 52, HDL Cholesterol 72 H Vital Signs Temp Pulse Resp BP Pulse Ox 10/29/17 07:33 97.8 F 84 20 115/65 10/28/17 15:00 75 96/59 L 10/28/17 09:31 67 119/60 10/28/17 09:30 67 119/60 10/28/17 07:52 98.7 F 67 20 119/60 10/27/17 09:22 75 112/60 10/27/17 09:14 75 112/60 10/27/17 07:15 97.6 F 75 20 112/56 L 10/26/17 21:15 98.5 F 68 20 141/68 96 DSM 5 Symptoms Update: Patient is a single 67-year-old white female with a psychiatric history of possible schizoaffective disorder versus schizophrenia versus major depressive disorder with psychotic symptoms, rule out OCD, multi problem prior hospitalizations most recently a [facility] [id number], in psychiatric treatment with Dr. Fong in [place], reportedly compliant with medications and follow up appts, initially pt was admitted to the medical floor for dizziness. Patient was transferred to the psychiatric inpatient unit for evaluation and stabilization of depression, hallucinations as well as possible hoarding behavior so severe that patient is facing eviction (cannot exclude pt might be paranoid and it is incorrect information). [facility], pt presented in cheerful mood, smiling inappropriately at times. pt asked to be off lexapro, "I don't feel good on this medication" pt asked zoloft to be given instead "I was tolerating it better". patient reports that that should tolerated Zyprexa well, denied any side effects , "so far so good". Patient still to presented to be disorganized thought process was circumstantial and tangential, still afraid and paranoid that she might be evicted from the apartment where she lives. Patient tolerates medications well, no side effects observed or reported, aims 0 , no EPS. As per nursing staff patient is compliant with the medications no agitation or aggression, patient started to go to groups. Impression: Rule out schizophrenia, rule out schizoaffective disorder Medication Change: Yes (Risperdal discontinued, Zyprexa Zydis 5 mg in the morning time at the night) Medical Record Reviewed: Yes Consults ordered or reviewed: medical consult appreciated Mental Status Examination - Cognitive Function Orientation: Person, Place, Situation Memory: Impaired Attention: WNL Association: Loose Fund of Knowledge: Poor - Mood Mood: Depressed, Anxious - Affect Affect: Constricted, Flat - Speech Speech: Appropriate - Formal Thought Process Formal Thought Process: Hallucinations (Denies hallucinations since transfer to the unit, but thought process disorganized), Delusions - Suicidal Ideation Suicidal Ideation: No - Homicidal Ideation Homicidal Ideation: No Goal/Treatment Plan - Goal/Treatment Plan Need for Continued Stay: Remain at risks for inpatient hospitalization, Severe depression anxiety, Discharge may exacerbated symptoms, Severe functional impairment Progress Toward Problem(s) and Goals/Treatment Plan: milieu, structure, supportive therapy Medications were confirmed by pharmacy Risperdal discontinued Zyprexa anxiety as 5 mg at the morning time at the nighttime for psychosis and mood stabilization Lexapro d/c zoloft 50mg po daily for depression and anxiety So not as needed for insomnia ICMS worker will be called for collaterals Medical consult appreciated, see medical team note for more detailed info SW consultation for discharge plan and social issues Med management (specify the name, doses, plan to titrate or wean it off) Family involvement Follow up on labs Will monitor closely Pt was educated about risk/benefits and alternatives of medications, coping strategies (safety plan, suicide prevention), relapse prevention, importance of follow up with psychiatrist and therapist, stay away from drugs/alcohol/smoking Estimated Date of D/C: 11/05/17
[2017-10-30] MEDS: OLANZapine 5 mg Disintegrating Tab PO SCH (21:22)
[2017-10-31] MEDS: Budesonide 0.5 mg/2 ml Inhal Susp UD IH SCH ×3 (08:03→21:53)
[2017-10-31] MEDS: Arformoterol 15 mcg/2 ml Inh Sol IH SCH ×3 (08:03→21:53)
[2017-10-31] MEDS: Cholecalciferol 1,000 INTLU TAB PO SCH (09:26)
[2017-10-31] MEDS: Omega-3-Acid Ethyl Esters 1 GM Cap PO SCH (09:26)
[2017-10-31] MEDS: Pantoprazole 40 mg EC Tab PO SCH (09:26)
--- NOTE | 2017-10-31 14:57 | PCM.PYCHPN ---
Psychiatric Progress Note - Psychiatric Progress Note Patient seen today, length of contact: 30 minute Patient Chief Complaint: "I feel little better" Problems Identified/Issues Discussed: Suicide/ homicide prevention, past psychiatric h/o, current psychiatric symptoms , medical problems, risk/benefits and alternatives of medications, medications compliance, coping strategies, substance abuse h/o, relapse prevention, importance of follow up with psychiatrist and therapist, discharge plan. Medical Problems: hypertension, hyperlipidemia, cardiac catherization w/o stent placement, COPD, GERD, Chronic Neuropathy, stress incontinence, dizziness. Diagnostic Results: Lab Results 10/27/17 07:30: RPR Nonreactive 10/27/17 07:30: TSH 3rd Generation 2.26 10/27/17 07:30: Fasting Glucose 86, Triglycerides 39, Cholesterol 143, LDL Cholesterol Direct 52, HDL Cholesterol 72 H Vital Signs Temp Pulse Resp BP Pulse Ox 10/29/17 07:33 97.8 F 84 20 115/65 10/28/17 15:00 75 96/59 L 10/28/17 09:31 67 119/60 10/28/17 09:30 67 119/60 10/28/17 07:52 98.7 F 67 20 119/60 10/27/17 09:22 75 112/60 10/27/17 09:14 75 112/60 10/27/17 07:15 97.6 F 75 20 112/56 L 10/26/17 21:15 98.5 F 68 20 141/68 96 DSM 5 Symptoms Update: Patient is a single 67-year-old white female with a psychiatric history of possible schizoaffective disorder versus schizophrenia versus major depressive disorder with psychotic symptoms, rule out OCD, multi problem prior hospitalizations most recently a [facility] [id number], in psychiatric treatment with Dr. Fong in [place], reportedly compliant with medications and follow up appts, initially pt was admitted to the medical floor for dizziness. Patient was transferred to the psychiatric inpatient unit for evaluation and stabilization of depression, hallucinations as well as possible hoarding behavior so severe that patient is facing eviction (cannot exclude pt might be paranoid and it is incorrect information). patient was seen today at the dinning area, pt presented in cheerful mood, smiling inappropriately at times. Patient presented to the disorganized, difficult to express her thoughts, circumstantial, tangential, still afraid and paranoid that she might be evicted from the apartment where she lives. patient reported that she has back pain, requested to be on naproxen. patient reports that that should tolerated Zyprexa well, denied any side effects , "so far so good". Patient tolerates medications well, no side effects observed or reported, aims 0 , no EPS. As per nursing staff patient is compliant with the medications no agitation or aggression, patient started to go to groups. Impression: Rule out schizophrenia, rule out schizoaffective disorder Medication Change: No (increased yesterday) Medical Record Reviewed: Yes Mental Status Examination - Cognitive Function Orientation: Person, Place, Situation Memory: Impaired Attention: WNL Association: Loose Fund of Knowledge: Poor - Mood Mood: Depressed, Anxious - Affect Affect: Constricted, Flat - Speech Speech: Appropriate - Formal Thought Process Formal Thought Process: Hallucinations (Denies hallucinations since transfer to the unit, but thought process disorganized), Delusions - Suicidal Ideation Suicidal Ideation: No - Homicidal Ideation Homicidal Ideation: No Goal/Treatment Plan - Goal/Treatment Plan Need for Continued Stay: Remain at risks for inpatient hospitalization, Severe depression anxiety, Discharge may exacerbated symptoms, Severe functional impairment Progress Toward Problem(s) and Goals/Treatment Plan: milieu, structure, supportive therapy Medications were confirmed by pharmacy Risperdal discontinued Zyprexa zydis5 mg at the morning time at the nighttime for psychosis and mood stabilization Lexapro d/c zoloft 50mg po daily for depression and anxiety Sonata as needed for insomnia ICMS worker will be called for collaterals Medical consult appreciated, see medical team note for more detailed info SW consultation for discharge plan and social issues Med management (specify the name, doses, plan to titrate or wean it off) Family involvement Follow up on labs Will monitor closely Pt was educated about risk/benefits and alternatives of medications, coping strategies (safety plan, suicide prevention), relapse prevention, importance of follow up with psychiatrist and therapist, stay away from drugs/alcohol/smoking Estimated Date of D/C: 11/05/17
[2017-10-31] MEDS: Naproxen 550 mg Tab PO PRN (16:35)
[2017-10-31] MEDS: OLANZapine 5 mg Disintegrating Tab PO SCH (21:17)
[2017-11-01] MEDS: Budesonide 0.5 mg/2 ml Inhal Susp UD IH SCH ×2 (09:33→20:23)
[2017-11-01] MEDS: Arformoterol 15 mcg/2 ml Inh Sol IH SCH ×2 (09:33→20:23)
[2017-11-01] MEDS: Omega-3-Acid Ethyl Esters 1 GM Cap PO SCH (09:44)
[2017-11-01] MEDS: Cholecalciferol 1,000 INTLU TAB PO SCH (09:46)
[2017-11-01] MEDS: Pantoprazole 40 mg EC Tab PO SCH (09:46)
--- NOTE | 2017-11-01 12:59 | PCM.PYCHPN ---
Psychiatric Progress Note - Psychiatric Progress Note Patient seen today, length of contact: 30 minute Patient Chief Complaint: "I feel better, I want to let you know about the Amado Khan, he is a candido who I met at the restaurant and he apologized..., I want to be on the phone with my aluminum pourer all the times because I have a lot of problems with my relatives, I was attending the [facility] on [address] [place] [address]..." Problems Identified/Issues Discussed: Suicide/ homicide prevention, past psychiatric h/o, current psychiatric symptoms , medical problems, risk/benefits and alternatives of medications, medications compliance, coping strategies, substance abuse h/o, relapse prevention, importance of follow up with psychiatrist and therapist, discharge plan. Medical Problems: hypertension, hyperlipidemia, cardiac catherization w/o stent placement, COPD, GERD, Chronic Neuropathy, stress incontinence, dizziness. Diagnostic Results: Lab Results 10/27/17 07:30: RPR Nonreactive 10/27/17 07:30: TSH 3rd Generation 2.26 10/27/17 07:30: Fasting Glucose 86, Triglycerides 39, Cholesterol 143, LDL Cholesterol Direct 52, HDL Cholesterol 72 H Vital Signs Temp Pulse Resp BP Pulse Ox 10/29/17 07:33 97.8 F 84 20 115/65 10/28/17 15:00 75 96/59 L 10/28/17 09:31 67 119/60 10/28/17 09:30 67 119/60 10/28/17 07:52 98.7 F 67 20 119/60 10/27/17 09:22 75 112/60 10/27/17 09:14 75 112/60 10/27/17 07:15 97.6 F 75 20 112/56 L 10/26/17 21:15 98.5 F 68 20 141/68 96 DSM 5 Symptoms Update: Patient is a single 67-year-old white female with a psychiatric history of possible schizoaffective disorder versus schizophrenia versus major depressive disorder with psychotic symptoms, rule out OCD, multi problem prior hospitalizations most recently a [facility] [id number], in psychiatric treatment with Dr. Fong in [place], reportedly compliant with medications and follow up appts, initially pt was admitted to the medical floor for dizziness. Patient was transferred to the psychiatric inpatient unit for evaluation and stabilization of depression, hallucinations as well as possible hoarding behavior so severe that patient is facing eviction (cannot exclude pt might be paranoid and it is incorrect information). patient was seen today at the dinning area, pt presented in cheerful mood, smiling inappropriately at times. Patient presented to the disorganized, difficult to express her thoughts, circumstantial, tangential, "I feel better, I want to let you know about the Amado Khan, he is a candido who I met at the restaurant and he apologized..., I want to be on the phone with my aluminum pourer all the times because I have a lot of problems with my relatives, [facility] on [address] [place] [address]...". at the same time pt has some improvements, pt is not sure if she is evicted from the house, less paranoid, "I am not sure, may be I can go back there". as per collaterals from pt's nurse case manager (collected by [employer]), pt is not evicted, pt was able to maintain her apartment well up until May-June 2017 when pt started to have hording problems, pt collected coffee cups, papers, pt was advised to clean the apartment but did not get any eviction notice. pt was compliant with meds, but ?recently because pt was collecting some pill bottles. patient reported that she has back pain, requested to be on naproxen, today back pain is better. patient reports that that she tolerates medications well, no side effects observed or reported, AIMS 0, no EPS. As per nursing staff patient is compliant with the medications no agitation or aggression, patient attends groups, socially appropriate, but thought process is disorganized. Impression: Rule out schizophrenia, rule out schizoaffective disorder Medication Change: Yes (zyprexa increased) Medical Record Reviewed: Yes Consults ordered or reviewed: medical consult appreciated see notes for more detailed information Mental Status Examination - Cognitive Function Orientation: Person, Place, Situation, Time Memory: Intact Attention: WNL Concentration: WNL Association: Loose Fund of Knowledge: WNL - Mood Mood: Depressed ("I am not depressed, I am okay"), Anxious (denied) - Affect Affect: Broad (full range, at times pt smiles inappropriately') - Speech Speech: Appropriate - Formal Thought Process Formal Thought Process: Hallucinations (deneid), Delusions, Paranoia, Loosening of associations, Circumstantial - Suicidal Ideation Suicidal Ideation: No - Homicidal Ideation Homicidal Ideation: No Goal/Treatment Plan - Goal/Treatment Plan Need for Continued Stay: Remain at risks for inpatient hospitalization, Severe depression anxiety, Discharge may exacerbated symptoms, Severe functional impairment Progress Toward Problem(s) and Goals/Treatment Plan: milieu, structure, supportive therapy Medications were confirmed by pharmacy Risperdal discontinued Zyprexa zydis5 mg at the morning time at the nighttime for psychosis and mood stabilization Lexapro d/c zoloft 50mg po daily for depression and anxiety Sonata as needed for insomnia nurse case manager collaterals obtained by Medical consult appreciated, see medical team note for more detailed info consultation for discharge plan and social issues Family involvement Follow up on labs Will monitor closely Pt was educated about risk/benefits and alternatives of medications, coping strategies (safety plan, suicide prevention), relapse prevention, importance of follow up with psychiatrist and therapist, stay away from drugs/alcohol/smoking Estimated Date of D/C: 11/05/17
[2017-11-01] MEDS: OLANZapine 5 mg Disintegrating Tab PO SCH (21:12)
[2017-11-02] MEDS ORDERED: OLANZapine 5 mg Disintegrating Tab PO SCH (08:00)
[2017-11-02] MEDS: Arformoterol 15 mcg/2 ml Inh Sol IH SCH ×2 (08:33→23:00)
[2017-11-02] MEDS: Budesonide 0.5 mg/2 ml Inhal Susp UD IH SCH ×2 (08:33→23:00)
[2017-11-02] MEDS: Cholecalciferol 1,000 INTLU TAB PO SCH (08:52)
[2017-11-02] MEDS: Pantoprazole 40 mg EC Tab PO SCH (08:52)
[2017-11-02] MEDS: Omega-3-Acid Ethyl Esters 1 GM Cap PO SCH (08:54)
--- NOTE | 2017-11-02 15:02 | PCM.PYCHPN ---
Psychiatric Progress Note - Psychiatric Progress Note Patient seen today, length of contact: 30 minute Patient Chief Complaint: "I feel medications are too heavy..." Problems Identified/Issues Discussed: Suicide/ homicide prevention, past psychiatric h/o, current psychiatric symptoms , medical problems, risk/benefits and alternatives of medications, medications compliance, coping strategies, substance abuse h/o, relapse prevention, importance of follow up with psychiatrist and therapist, discharge plan. Medical Problems: hypertension, hyperlipidemia, cardiac catherization w/o stent placement, COPD, GERD, Chronic Neuropathy, stress incontinence, dizziness. Diagnostic Results: Lab Results 10/27/17 07:30: RPR Nonreactive 10/27/17 07:30: TSH 3rd Generation 2.26 10/27/17 07:30: Fasting Glucose 86, Triglycerides 39, Cholesterol 143, LDL Cholesterol Direct 52, HDL Cholesterol 72 H Vital Signs Temp Pulse Resp BP Pulse Ox 10/29/17 07:33 97.8 F 84 20 115/65 10/28/17 15:00 75 96/59 L 10/28/17 09:31 67 119/60 10/28/17 09:30 67 119/60 10/28/17 07:52 98.7 F 67 20 119/60 10/27/17 09:22 75 112/60 10/27/17 09:14 75 112/60 10/27/17 07:15 97.6 F 75 20 112/56 L 10/26/17 21:15 98.5 F 68 20 141/68 96 DSM 5 Symptoms Update: Patient is a single 67-year-old white female with a psychiatric history of possible schizoaffective disorder versus schizophrenia versus major depressive disorder with psychotic symptoms, rule out OCD, multi problem prior hospitalizations most recently a [facility] [id number], in psychiatric treatment with Dr. Fong in [place], reportedly compliant with medications and follow up appts, initially pt was admitted to the medical floor for dizziness. Patient was transferred to the psychiatric inpatient unit for evaluation and stabilization of depression, hallucinations as well as possible hoarding behavior so severe that patient is facing eviction (cannot exclude pt might be paranoid and it is incorrect information). patient was seen today in her room, pt presented drowsy, said that she feels sleepy, pt's thought process is disorganized, pt was having delusional perception, when addressed eviction problem and her responsibility to keep apartment clean, pt said that she has no problems but person upstairs smoking. pt is not sure if she is evicted from the house, less paranoid, "I am not sure, may be I can go back there". as per collaterals from pt's case specialist ( collected by [employer]), pt is not evicted, pt was able to maintain her apartment well up until May-June 2017 when pt started to have hording problems, pt collected coffee cups, papers, pt was advised to clean the apartment but did not get any eviction notice. pt was compliant with meds, but ?recently because pt was collecting some pill bottles. patient reports that that she tolerates medications well, no side effects observed or reported, AIMS 0, no EPS. As per nursing staff patient is compliant with the medications no agitation or aggression, patient attends groups, socially appropriate, but thought process is disorganized. Impression: Rule out schizophrenia, rule out schizoaffective disorder Medication Change: Yes (zyprexa switched to hs) Medical Record Reviewed: Yes Consults ordered or reviewed: medical consult appreciated see notes for more detailed information Mental Status Examination - Cognitive Function Orientation: Person, Place, Situation, Time Memory: Intact Attention: WNL Concentration: WNL Association: Loose Fund of Knowledge: WNL - Mood Mood: Depressed ("I am not depressed, I am okay"), Anxious (denied) - Affect Affect: Broad (full range, at times pt smiles inappropriately') - Speech Speech: Appropriate - Formal Thought Process Formal Thought Process: Hallucinations (deneid), Delusions, Paranoia, Loosening of associations, Circumstantial - Suicidal Ideation Suicidal Ideation: No - Homicidal Ideation Homicidal Ideation: No Goal/Treatment Plan - Goal/Treatment Plan Need for Continued Stay: Remain at risks for inpatient hospitalization, Severe depression anxiety, Discharge may exacerbated symptoms, Severe functional impairment Progress Toward Problem(s) and Goals/Treatment Plan: milieu, structure, supportive therapy Medications were confirmed by pharmacy Risperdal discontinued Zyprexa zydis10 mg nighttime for psychosis and mood stabilization Lexapro d/c zoloft 50mg po daily for depression and anxiety Sonata as needed for insomnia case specialist collaterals obtained by [employer] Medical consult appreciated, see medical team note for more detailed info [facility] consultation for discharge plan and social issues Family involvement Follow up on labs Will monitor closely Pt was educated about risk/benefits and alternatives of medications, coping strategies (safety plan, suicide prevention), relapse prevention, importance of follow up with psychiatrist and therapist, stay away from drugs/alcohol/smoking Estimated Date of D/C: 11/05/17
[2017-11-02] MEDS: OLANZapine 5 mg Disintegrating Tab PO SCH (21:13)
[2017-11-03] MEDS: Omega-3-Acid Ethyl Esters 1 GM Cap PO SCH (07:43)
[2017-11-03] MEDS: Cholecalciferol 1,000 INTLU TAB PO SCH (07:44)
[2017-11-03] MEDS: Pantoprazole 40 mg EC Tab PO SCH (07:44)
--- NOTE | 2017-11-03 09:34 | PCM.PYCHPN ---
Psychiatric Progress Note - Psychiatric Progress Note Patient seen today, length of contact: 25 minute Patient Chief Complaint: "better, still depressed" Problems Identified/Issues Discussed: Patient is a single 67-year-old white female with a psychiatric history of possible schizoaffective disorder versus schizophrenia versus major depressive disorder with psychotic symptoms, rule out OCD, multiple prior hospitalizations most recently a [facility] in 2006 who was admitted to the medical floor on for evaluation of dizziness. Psychiatry was consulted due to patient's prior psychiatric history and patient was transferred to psychiatric unit on for depression, disorganization and history of hallucinations as well as treatment of hoarding behaviors. I met with patient bedside and she remains alert and oriented to month, year, location and circumstances. Her focus and grooming are fair. She remembers me from my introduction and questioning last weekend. Reports that she feels depressed but, overall feels improved since her admission to the unit. She is tolerating Zoloft well, denies side effects from her other medications. Patient denies having any thoughts of harming herself or others. Hallucinations have resolved and she denies any current perceptual disturbance. Thought process is showing some improvement though she still remains illogical and scattered at times. She doesn't appear to be responding to internal stimuli. Affect is generally pleasant, cooperative and a little brighter. Per staff notes, patient has been calm and in control on the unit. She is attending groups without evidence of agitation or aggression. There were no behavioral issues overnight Diagnostic Results: Schizoaffective Disorder r/o OCD r/o JONATHON Medication Change: No ( ) Medical Record Reviewed: Yes Mental Status Examination - Cognitive Function Orientation: Person, Place, Situation, Time Memory: Intact Attention: WNL Concentration: WNL Association: Loose Fund of Knowledge: WNL - Mood Mood: Depressed ("better"), Anxious (denied) - Affect Affect: Broad (brighter and friendly) - Speech Speech: Appropriate - Formal Thought Process Formal Thought Process: Hallucinations (denied), Delusions, Paranoia, Loosening of associations, Circumstantial - Suicidal Ideation Suicidal Ideation: No - Homicidal Ideation Homicidal Ideation: No Goal/Treatment Plan - Goal/Treatment Plan Need for Continued Stay: Remain at risks for inpatient hospitalization, Severe depression anxiety, Discharge may exacerbated symptoms, Severe functional impairment Progress Toward Problem(s) and Goals/Treatment Plan: * c/w current tx and plan * No new floor labs thus far * Vitals reviewed and noted below: 11/03/17 06:45 Temperature 98.3 F Pulse Rate 60 Respiratory 20 Rate Blood Pressure 129/65 Estimated Date of D/C: 11/05/17
[2017-11-03] MEDS: Budesonide 0.5 mg/2 ml Inhal Susp UD IH SCH ×2 (09:44→21:48)
[2017-11-03] MEDS: Arformoterol 15 mcg/2 ml Inh Sol IH SCH ×2 (09:44→21:48)
[2017-11-03] MEDS: Naproxen 550 mg Tab PO PRN (13:11)
[2017-11-03] MEDS: OLANZapine 5 mg Disintegrating Tab PO SCH (21:57)
[2017-11-04] MEDS: Omega-3-Acid Ethyl Esters 1 GM Cap PO SCH (08:44)
[2017-11-04] MEDS: Pantoprazole 40 mg EC Tab PO SCH (08:44)
[2017-11-04] MEDS: Cholecalciferol 1,000 INTLU TAB PO SCH (08:44)
--- NOTE | 2017-11-04 10:23 | PCM.PYCHPN ---
Psychiatric Progress Note - Psychiatric Progress Note Patient seen today, length of contact: 25 minute Patient Chief Complaint: "I think a little more depressed today" Problems Identified/Issues Discussed: Patient is a single 67-year-old white female with a psychiatric history of possible schizoaffective disorder versus schizophrenia versus major depressive disorder with psychotic symptoms, rule out OCD, multiple prior hospitalizations most recently a [facility] in 2006 who was admitted to the medical floor on for evaluation of dizziness. Psychiatry was consulted due to patients prior psychiatric history and patient was transferred to psychiatric unit on 10/26/17 for depression, disorganization and history of hallucinations as well as treatment of hoarding behaviors. I met with patient bedside and she remains alert and oriented to month, year, location and circumstances. Her focus remains fair and she is cooperative for questioning. Grooming is a little unkempt. Patient reports that she feels more depressed today and wonders if Zyprexa is making her more depressed. She is tolerating Zoloft well, denies other side effects. Patient denies having any thoughts of harming herself or others. Reported some vague hallucinations to staff yesterday, she currently denies any current perceptual disturbance. She doesn't appear to be responding to internal stimuli. Affect is generally pleasant and cooperative though constricted. Thought process is showing some improvement though she still remains illogical and scattered. Per staff notes, patient has been calm and in control on the unit. She is attending groups without evidence of agitation or aggression. There were no major behavioral issues over the weekend. Diagnostic Results: Schizoaffective Disorder r/o OCD r/o JONTAHON Medication Change: No ( ) Medical Record Reviewed: Yes Mental Status Examination - Cognitive Function Orientation: Person, Place, Situation, Time Memory: Intact Attention: WNL Concentration: WNL Association: Loose Fund of Knowledge: WNL - Mood Mood: Depressed ( "I think a little more depressed today" ), Anxious (denied) - Affect Affect: Constricted - Speech Speech: Appropriate - Formal Thought Process Formal Thought Process: Hallucinations (reported some vague hallucinations to staff yesterday, denied to me today), Delusions, Paranoia, Loosening of associations, Circumstantial - Suicidal Ideation Suicidal Ideation: No - Homicidal Ideation Homicidal Ideation: No Goal/Treatment Plan - Goal/Treatment Plan Need for Continued Stay: Remain at risks for inpatient hospitalization, Severe depression anxiety, Discharge may exacerbated symptoms, Severe functional impairment Progress Toward Problem(s) and Goals/Treatment Plan: * c/w current tx and plan * No new floor labs this weekend * Vitals reviewed and noted below: 11/04/17 06:44 Temperature 97.8 F Pulse Rate 64 Respiratory 20 Rate Blood Pressure 133/67 Estimated Date of D/C: 11/05/17
[2017-11-04] MEDS: Budesonide 0.5 mg/2 ml Inhal Susp UD IH SCH ×2 (14:06→20:00)
[2017-11-04] MEDS: Arformoterol 15 mcg/2 ml Inh Sol IH SCH ×2 (14:06→20:00)
[2017-11-04] MEDS: Naproxen 550 mg Tab PO PRN (15:55)
[2017-11-04] MEDS: OLANZapine 5 mg Disintegrating Tab PO SCH (21:41)
[2017-11-05] MEDS: Budesonide 0.5 mg/2 ml Inhal Susp UD IH SCH ×2 (07:53→21:46)
[2017-11-05] MEDS: Arformoterol 15 mcg/2 ml Inh Sol IH SCH ×2 (07:53→21:46)
[2017-11-05] MEDS: Omega-3-Acid Ethyl Esters 1 GM Cap PO SCH (08:26)
[2017-11-05] MEDS: Cholecalciferol 1,000 INTLU TAB PO SCH (08:26)
[2017-11-05] MEDS: Pantoprazole 40 mg EC Tab PO SCH (08:28)
--- NOTE | 2017-11-05 10:02 | CP.PCM.CON ---
<Delia Chappell - Last Filed: 11/05/17 09:56> History of Present Illness - History of Present Illness History of Present Illness: Podiatry Consult note: Dr. Berger/Dr. Turner 67 year old female patient HTN, hyperlipidemia, COPD, GERD, Chronic Neuropathy, possible schizoaffective disorder, and stress incontinence was seen and evaluated for elongated nails. Patient reports that she is usually seen by a pony worker at the half-way. Patient denies of any pain in her feet today. Reports that her nails are long and would like them clipped. Denies of any other complains at this time. Denies of having any recent F/N/V/C/SOB/CP/ headache. Denies of having any other pedal complains at this time. PMHx: hypertension, hyperlipidemia, cardiac catherization w/o stent placement , COPD, GERD, Chronic Neuropathy, and possible schizoaffective disorder, Stress Incontinence PSHx: Spina Bifida Surgery (infancy), tonsillectomy, septorhinoplasty, Allergies: Patient Denied. Per chart, Sulfa Antibiotics SHx: Denies tobacco, alcohol, or illicit drug use Review of Systems - Constitutional Constitutional: As Per HPI Past Patient History - Infectious Disease Hx of Infectious Diseases: None - Tetanus Immunizations Tetanus Immunization: Unknown - Past Social History Smoking Status: Unknown If Ever Smoked - CARDIAC Hx Hypertension: Yes - PULMONARY Hx Chronic Obstructive Pulmonary Disease (COPD): Yes - NEUROLOGICAL Hx Neurological Disorder: Yes Hx Dizziness: Yes - HEENT Hx HEENT Problems: No - RENAL Hx Chronic Kidney Disease: No - ENDOCRINE/METABOLIC Hx Endocrine Disorders: No - HEMATOLOGICAL/ONCOLOGICAL Hx Blood Disorders: No - INTEGUMENTARY Hx Dermatological Problems: Yes Other/Comment: 10-25-17 FADING BRUISE TO LEFT THIGH.DENIES FALLING.HIT IT ON SOMETHING. LARGE HORIZONTAL SCAR TO LOWER BACK.HAS A HAIRY BACK. - MUSCULOSKELETAL/RHEUMATOLOGICAL Hx Musculoskeletal Disorders: Yes Hx Falls: Yes Hx Unsteady Gait: Yes - GASTROINTESTINAL Hx Gastrointestinal Disorders: No - GENITOURINARY/GYNECOLOGICAL Hx Genitourinary Disorders: Yes Hx Urinary Tract Infection: Yes Other/Comment: STRESS INCONTINENCE,URGENCY. - PSYCHIATRIC Hx Substance Use: No - SURGICAL HISTORY Hx Surgeries: Yes Hx Tonsillectomy: Yes Other/Comment: spina bifida,rhinoplasty - ANESTHESIA Hx Anesthesia: Yes Hx Anesthesia Reactions: No Hx Malignant Hyperthermia: No Meds Allergies/Adverse Reactions: Allergies Allergy/AdvReac Type Severity Reaction Status Date / Time Sulfa (Sulfonamide Allergy RASH Verified 10/26/17 22:25 Antibiotics) - Medications Medications: Current Medications Acetaminophen (Tylenol 325mg Tab) 650 mg PO Q4 PRN PRN Reason: Pain, moderate (4-7) Last Admin: 10/28/17 22:02 Dose: 650 mg Al Hydrox/Mg Hydrox/Simethicone (Maalox Plus 30 Ml) 30 ml PO DAILY PRN PRN Reason: Upset Stomach Arformoterol Tartrate (Brovana) 15 mcg IH [id number] [facility] Last Admin: 11/05/17 07:53 Dose: 15 mcg Artificial Tears (Refresh Opth Soln) 0.3 ml OD DAILY PRN PRN Reason: Dry eyes Atorvastatin Calcium (Lipitor) 10 mg PO DIN [facility] Last Admin: 11/04/17 17:43 Dose: 10 mg Baclofen (Lioresal) 10 mg PO BID [facility] Last Admin: 11/05/17 08:26 Dose: 10 mg Budesonide (Pulmicort Respules) 0.5 mg IH [id number] [facility] Last Admin: 11/05/17 07:53 Dose: 0.5 mg Cholecalciferol (Vitamin D) 2,000 intlu PO DAILY [facility] Last Admin: 11/05/17 08:26 Dose: 2,000 intlu Docusate Sodium (Colace) 100 mg PO DAILY [facility] Last Admin: 11/05/17 08:26 Dose: 100 mg Lisinopril (Zestril) 10 mg PO DAILY [facility] Last Admin: 11/05/17 08:28 Dose: 10 mg Loratadine (Claritin) 10 mg PO DAILY [facility] Last Admin: 11/05/17 08:28 Dose: 10 mg Magnesium Hydroxide (Milk Of Magnesia) 30 ml PO DAILY PRN PRN Reason: Constipation Memantine (Namenda) 10 mg PO DAILY [facility] Last Admin: 11/05/17 08:28 Dose: 10 mg Metoprolol Tartrate (Lopressor) 25 mg PO DAILY [facility] Last Admin: 11/05/17 08:28 Dose: 25 mg Naproxen (Anaprox Ds) 550 mg PO BID PRN PRN Reason: Pain, moderate (4-7) Last Admin: 11/04/17 15:55 Dose: 550 mg Olanzapine (Zyprexa Zydis) 10 mg PO HS WENDIE PRN Reason: Protocol Last Admin: 11/04/17 21:41 Dose: 10 mg Vyaky-2-Vaui Ethyl Esters (Lovaza) 2 gm PO DAILY [facility] Last Admin: 11/05/17 08:26 Dose: 2 gm Pantoprazole Sodium (Protonix Ec Tab) 40 mg PO DAILY [facility] Last Admin: 11/05/17 08:28 Dose: 40 mg Sertraline HCl (Zoloft) 75 mg PO DAILY [facility] Last Admin: 11/05/17 08:26 Dose: 75 mg Vitamin E (Vitamin E 400 Units Cap) 400 intlu PO DAILY [facility] Last Admin: 11/05/17 08:28 Dose: 400 intlu Zaleplon (Sonata) 5 mg PO HS PRN PRN Reason: Insomnia Last Admin: 10/28/17 22:02 Dose: 5 mg Physical Exam - Constitutional Appears: Well, Non-toxic, No Acute Distress - Extremities Exam Additional comments: Bilateral LE exam: VASC: DP/PT pulses are palpable 2/4, Cap refill time: <3 sec to all digits, Temp gradient: warm to cool from proximal to distal, no pitting or non-pitting edema noted DERM: nails are elongated, discolored, hyperkeratotic to all digits, no open lesions, no interdigital maceration, no clinical suspicion of active infection NEURO: Protective sensation grossly intact ORTHO: ROM at AJ, STJ, MTJ, 1st ray and MTPJ WNL - Neurological Exam Neurological exam: Alert, Oriented x3 - Psychiatric Exam Psychiatric exam: Normal Affect, Normal Mood Results - Vital Signs Recent Vital Signs: Last Vital Signs Temp 97.8 F 11/04/17 06:44 Pulse 70 11/04/17 16:00 Resp 20 11/04/17 06:44 BP 105/62 11/04/17 16:00 Pulse Ox 96 10/26/17 21:15 Assessment & Plan - Assessment and Plan (Free Text) Assessment: 67 year old female with onychomycosis Plan: Patient seen and evaluated Discussed with attending Dr. Berger Charts, and vitals evaluated Aseptic debridement of the nails using sterile clippers Tolerated the procedure well with no reported incidents Thank you for the podiatry consult and allowing to take part in patient care Podiatry to sign-off at this time - please re-consult as needed - Date & Time Date: 11/05/17 Time: 10:15 <Carina Berger - Last Filed: 11/11/17 17:39> Meds - Medications Medications: Current Medications Acetaminophen (Tylenol 325mg Tab) 650 mg PO Q4 PRN PRN Reason: Pain, moderate (4-7) Last Admin: 11/05/17 21:13 Dose: 650 mg Al Hydrox/Mg Hydrox/Simethicone (Maalox Plus 30 Ml) 30 ml PO DAILY PRN PRN Reason: Upset Stomach Arformoterol Tartrate (Brovana) 15 mcg IH [id number] [facility] Last Admin: 11/11/17 08:23 Dose: 15 mcg Artificial Tears (Refresh Opth Soln) 0.3 ml OD DAILY PRN PRN Reason: Dry eyes Atorvastatin Calcium (Lipitor) 10 mg PO DIN [facility] Last Admin: 11/10/17 16:18 Dose: 10 mg Baclofen (Lioresal) 10 mg PO BID [facility] Last Admin: 11/11/17 09:16 Dose: 10 mg Budesonide (Pulmicort Respules) 0.5 mg IH [id number] [facility] Last Admin: 11/11/17 08:24 Dose: 0.5 mg Cholecalciferol (Vitamin D) 2,000 intlu PO DAILY [facility] Last Admin: 11/11/17 09:15 Dose: 2,000 intlu Docusate Sodium (Colace) 100 mg PO BID [facility] Last Admin: 11/11/17 09:13 Dose: 100 mg Lisinopril (Zestril) 10 mg PO DAILY [facility] Last Admin: 11/11/17 09:11 Dose: 10 mg Loratadine (Claritin) 10 mg PO DAILY [facility] Last Admin: 11/11/17 09:14 Dose: 10 mg Magnesium Hydroxide (Milk Of Magnesia) 30 ml PO DAILY PRN PRN Reason: Constipation Last Admin: 11/11/17 11:16 Dose: 30 ml Memantine (Namenda) 10 mg PO DAILY [facility] Last Admin: 11/11/17 09:16 Dose: 10 mg Metoprolol Tartrate (Lopressor) 25 mg PO DAILY [facility] Last Admin: 11/11/17 09:12 Dose: 25 mg Naproxen (Anaprox Ds) 550 mg PO BID PRN PRN Reason: Pain, moderate (4-7) Last Admin: 11/04/17 15:55 Dose: 550 mg Olanzapine (Zyprexa Zydis) 10 mg PO HS [facility] PRN Reason: Protocol Last Admin: 11/10/17 23:16 Dose: 10 mg Sziza-5-Fyzz Ethyl Esters (Lovaza) 2 gm PO DAILY [facility] Last Admin: 11/11/17 09:13 Dose: 2 gm Oxybutynin Chloride (Ditropan Tab) 5 mg PO HS [facility] Last Admin: 11/10/17 23:15 Dose: 5 mg Pantoprazole Sodium (Protonix Ec Tab) 40 mg PO DAILY [facility] Last Admin: 11/11/17 09:14 Dose: 40 mg Sertraline HCl (Zoloft) 150 mg PO DAILY [facility] Last Admin: 11/11/17 09:13 Dose: 150 mg Vitamin E (Vitamin E 400 Units Cap) 400 intlu PO DAILY [facility] Last Admin: 11/11/17 09:14 Dose: 400 intlu Zaleplon (Sonata) 5 mg PO HS PRN PRN Reason: Insomnia Last Admin: 10/28/17 22:02 Dose: 5 mg Results - Vital Signs Recent Vital Signs: Last Vital Signs Temp 97.7 F 11/11/17 07:31 Pulse 66 11/11/17 09:12 Resp 20 11/11/17 07:31 BP 112/62 11/11/17 09:12 Pulse Ox 96 10/26/17 21:15 - Labs Result Diagrams: 11/06/17 07:45 11/06/17 07:45 Labs: Laboratory Results - last 24 hr 11/10/17 17:22 Troponin I < 0.01
--- NOTE | 2017-11-05 12:43 | PCM.BM ---
<Yenifer Blair - Last Filed: 11/05/17 12:37> Treatment Plan Problems - Problems identified on initial assessmt Ineffective coping Date Initiated: 10/26/17 (11/05/17 remain with poor coping skills,insight and judgement is poor.met with the tx team and was argumenative r/t her hoarding and cleaning .wants to go to [facility] instead staying in the apt.was reinforced the positive coping) Time Initiated: :15 Assessment reference: NA Status: Active Priority: 1 Hopelessness/Helplessness Date Initiated: 10/26/17 Time Initiated: 21:15 Date resolved: 11/05/17 Assessment reference: NA Status: Active Priority: 2 Altered Sleep Patterns Date Initiated: 10/26/17 Time Initiated: Date resolved: 11/05/17 Assessment reference: NA Status: Active Priority: 4 Medication Non-Compliance Date Initiated: 10/26/17 Time Initiated: :15 Date resolved: 11/05/17 Status: Active Priority: 3 Treatment assets and liabiliti Patient Assests: cooperative, self-reliant, negotiates basic needs, cognitively intact Patient Liabilities: live alone, financial problems, poor support system, medical problems - Milieu Protocol Maintain good personal hygiene: daily Encourage regular showers, daily Remind patient to perform daily oral care, daily Assist patient to perform ADL's Conduct patient checks and document Observation sheet: Q15 minutes Maintain personal safety: every shift Educate patient to report safety concerns to staff, every shift Monitor environment for contraband/sharps Medication safety: Monitor for expected outcome, potential side effects: every shift, Assess barriers to learning: every shift, Assess readiness for medication education: every shift Milieu Narrative: * c/w current tx and plan * No new floor labs this weekend * Vitals reviewed and noted below: 11/04/17 06:44 Temperature 97.8 F Pulse Rate 64 Respiratory 20 Rate Blood Pressure 133/67 Family Contact Family involvement: No known Family/SO - Outside Agency Supportive Housing Care involvment: Information-sharing Agency contact name: Supportive Housing Discharge/Continuing Care - Education Needs Education Needs: Patient Medication, Patient Diagnosis/Disease Process, Patient Coping Skills, Patient Placement options, Patient Community resources, Patient Health Practices/Safety - Discharge Discharge Criteria: Tolerates medication w/o severe side effects, Normal sleep pattern, Ability to care for self - Treatment Team Participation Patient/Family/SO Statement: * c/w current tx and plan * No new floor labs this weekend * Vitals reviewed and noted below: 11/04/17 06:44 Temperature 97.8 F Pulse Rate 64 Respiratory 20 Rate Blood Pressure 133/67 Treatment Plan Review - Problem Ineffective coping Time Initiated: 21:15 Hopelessness/Helplessness Time Initiated: 21:15 Altered Sleep Patterns Time Initiated: 21:15 Medication Non-Compliance Time Initiated: 21:15 <Angeline Betancourt - Last Filed: 11/05/17 15:04> - Diagnosis (1) Schizoaffective disorder Status: Acute Interventions: 11/05/17 15:04 Psychoeducation/psychotherapy Psychopharmacology/adjustment of medications as needed/ monitoring possible side effects Evaluate pt on daily basis Compliance with medications and follow up appointments pt is slowly improving <Pratibah Soliman - Last Filed: 11/05/17 15:43>
--- NOTE | 2017-11-05 15:13 | PCM.PYCHPN ---
Psychiatric Progress Note - Psychiatric Progress Note Patient seen today, length of contact: 25 minute Patient Chief Complaint: "they need to give me a notice, why they are not evicting people who smokes in building, in any way I don't like my apartment, send me to the nice senior living" Problems Identified/Issues Discussed: Suicide/ homicide prevention, past psychiatric h/o, current psychiatric symptoms , medical problems, risk/benefits and alternatives of medications, medications compliance, coping strategies, substance abuse h/o, relapse prevention, importance of follow up with psychiatrist and therapist, discharge plan. Medical Problems: hypertension, hyperlipidemia, cardiac catherization w/o stent placement, COPD, GERD, Chronic Neuropathy, stress incontinence, dizziness. Diagnostic Results: Lab Results 10/27/17 07:30: RPR Nonreactive 10/27/17 07:30: TSH 3rd Generation 2.26 10/27/17 07:30: Fasting Glucose 86, Triglycerides 39, Cholesterol 143, LDL Cholesterol Direct 52, HDL Cholesterol 72 H Vital Signs Temp Pulse Resp BP Pulse Ox 10/29/17 07:33 97.8 F 84 20 115/65 10/28/17 15:00 75 96/59 L 10/28/17 09:31 67 119/60 10/28/17 09:30 67 119/60 10/28/17 07:52 98.7 F 67 20 119/60 10/27/17 09:22 75 112/60 10/27/17 09:14 75 112/60 10/27/17 07:15 97.6 F 75 20 112/56 L 10/26/17 21:15 98.5 F 68 20 141/68 96 Vital Signs Temp Pulse Resp BP Pulse Ox 11/05/17 07:00 97.9 F 64 20 113/68 11/04/17 16:00 70 105/62 11/04/17 06:44 97.8 F 64 20 133/67 11/03/17 16:00 61 117/58 L 11/03/17 07:43 60 129/65 11/03/17 06:45 98.3 F 60 20 129/65 11/02/17 08:54 64 162/87 H 11/02/17 08:52 64 162/87 H 11/02/17 06:53 96.8 F L 64 20 162/87 H 11/01/17 16:00 67 120/73 04/26/18 09:56 76 128/74 11/01/17 09:55 76 128/74 11/01/17 07:27 97.3 F L 66 20 97/56 L 10/31/17 16:00 71 112/53 L 10/31/17 07:18 97.8 F 69 20 123/65 10/30/17 16:00 69 121/66 10/30/17 08:58 65 131/67 10/30/17 08:56 65 135/67 10/30/17 07:04 97.7 F 65 18 131/67 10/29/17 16:00 73 116/55 L 10/29/17 07:33 97.8 F 84 20 115/65 10/28/17 15:00 75 96/59 L 10/28/17 09:31 67 119/60 10/28/17 09:30 67 119/60 10/28/17 07:52 98.7 F 67 20 119/60 10/27/17 09:22 75 112/60 10/27/17 09:14 75 112/60 10/27/17 07:15 97.6 F 75 20 112/56 L 10/26/17 21:15 98.5 F 68 20 141/68 96 DSM 5 Symptoms Update: Patient is a single 67-year-old white female with a psychiatric history of possible schizoaffective disorder versus schizophrenia versus major depressive disorder with psychotic symptoms, rule out OCD, multi problem prior hospitalizations most recently a [facility] [id number], in psychiatric treatment with Dr. Fong in [place], reportedly compliant with medications and follow up appts, initially pt was admitted to the medical floor for dizziness. Patient was transferred to the psychiatric inpatient unit for evaluation and stabilization of depression, hallucinations as well as possible hoarding behavior so severe that patient is facing eviction (cannot exclude pt might be paranoid and it is incorrect information). patient was seen today At the treatment team meeting, hygiene is improving, patient still delusional and irrational, patient refused to clean her apartment even though that she is facing eviction problem, patient was making statement "in any way I don't like my apartment, send me to a nice senior living", pt was advised with all of her medical issues it will be not in her favor. pt then was making irrational statements that she needs to get three warnings before she will clean her apt, has no rational explanation why she needs to wait for the three warning in order to clean an appt. then pt became very irritable and stormed out the room. from the collaterals from the lead case manager pt was able to maintain her apartment well up until May-June 2017 when pt started to have hording problems, pt collected coffee cups, papers, pt was advised to clean the apartment but did not get any eviction notice. pt was compliant with meds, but ? recently because pt was collecting some pill bottles. patient reports that that she tolerates medications well, no side effects observed or reported, AIMS 0, no EPS. As per nursing staff patient is compliant with the medications no agitation or aggression, patient attends groups, socially appropriate, but thought process is disorganized. Impression: Rule out schizophrenia, rule out schizoaffective disorder Medication Change: Yes (zoloft increased) Medical Record Reviewed: Yes Consults ordered or reviewed: medical consult appreciated see notes for more detailed information Mental Status Examination - Cognitive Function Orientation: Person, Place, Situation, Time Memory: Intact Attention: WNL Concentration: WNL Association: Loose Fund of Knowledge: WNL - Mood Mood: Depressed ( "I think a little more depressed today" ), Anxious (denied) - Affect Affect: Constricted - Speech Speech: Appropriate - Formal Thought Process Formal Thought Process: Hallucinations (reported some vague hallucinations to staff yesterday, denied to me today), Delusions, Paranoia, Loosening of associations, Circumstantial - Suicidal Ideation Suicidal Ideation: No - Homicidal Ideation Homicidal Ideation: No Goal/Treatment Plan - Goal/Treatment Plan Need for Continued Stay: Remain at risks for inpatient hospitalization, Severe depression anxiety, Discharge may exacerbated symptoms, Severe functional impairment Progress Toward Problem(s) and Goals/Treatment Plan: milieu, structure, supportive therapy Medications were confirmed by pharmacy Risperdal discontinued Zyprexa [id number] mg nighttime for psychosis and mood stabilization zoloft 100mg po daily for depression and anxiety Sonata as needed for insomnia lead case manager collaterals obtained by Medical consult appreciated, see medical team note for more detailed info consultation for discharge plan and social issues Family involvement Follow up on labs Will monitor closely Pt was educated about risk/benefits and alternatives of medications, coping strategies (safety plan, suicide prevention), relapse prevention, importance of follow up with psychiatrist and therapist, stay away from drugs/alcohol/smoking meeting with lead case manager requested Estimated Date of D/C: 11/09/17
[2017-11-05] MEDS: OLANZapine 5 mg Disintegrating Tab PO SCH (21:14)
[2017-11-06 08:06] LABS: BASO # 0.01 K/mm3 (0.0-2.0); BASO % 0.2 % (0.0-3.0); EOS # 0.2 (0.0-0.7); EOS % 2.7 % (1.5-5.0); GRAN # 4.88 (1.4-6.5); GRAN % 73.6 % (50.0-68.0); HEMOGLOBIN 10.6 g/dL (12.0-16.0); LYMPH % 15.3 % (22.0-35.0); MEAN CELL VOLUME 90.1 fl (80.0-105.0); MEAN CORPUSCULAR HEMOGLOBIN 29.2 pg (25.0-35.0); MEAN CORPUSCULAR HGB CONC 32.4 g/dl (31.0-37.0); MEAN PLATELET VOLUME 8.6 fl (7.0-11.0); MONO # 0.5 (0.1-0.6); MONO % 8.2 % (1.0-6.0); RBC 3.63 10^6/uL (3.5-6.1); RED CELL DISTRIBUTION WIDTH 13.4 % (11.5-14.5); WHITE BLOOD COUNT 6.6 10^3/ul (4.5-11.0)
[2017-11-06 08:37] LABS: ALB/GLOB RATIO 1.3 (1.1-1.8); ALBUMIN 3.8 g/dL (3.0-4.8); ALT/SGPT 34 U/L (7-56); AST/SGOT 34 U/L (14-36); BLOOD UREA NITROGEN 31 mg/dL (7-21); CALCIUM 9.7 mg/dL (8.4-10.5); GFR AFRICAN-AMERICAN > 60; GFR NON-AFRICAN AMERICAN > 60
[2017-11-06] MEDS: Arformoterol 15 mcg/2 ml Inh Sol IH SCH ×2 (09:06→22:33)
[2017-11-06] MEDS: Budesonide 0.5 mg/2 ml Inhal Susp UD IH SCH ×2 (09:06→22:33)
[2017-11-06] MEDS: Cholecalciferol 1,000 INTLU TAB PO SCH (09:58)
[2017-11-06] MEDS: Omega-3-Acid Ethyl Esters 1 GM Cap PO SCH (09:58)
[2017-11-06] MEDS: Pantoprazole 40 mg EC Tab PO SCH (10:00)
--- NOTE | 2017-11-06 16:02 | PCM.PYCHPN ---
Psychiatric Progress Note - Psychiatric Progress Note Patient seen today, length of contact: 30min Patient Chief Complaint: "I have overreactive bladder" Problems Identified/Issues Discussed: Suicide/ homicide prevention, past psychiatric h/o, current psychiatric symptoms , medical problems, risk/benefits and alternatives of medications, medications compliance, coping strategies, substance abuse h/o, relapse prevention, importance of follow up with psychiatrist and therapist, discharge plan. Medical Problems: hypertension, hyperlipidemia, cardiac catherization w/o stent placement, COPD, GERD, Chronic Neuropathy, stress incontinence, dizziness. Diagnostic Results: Lab Results 10/27/17 07:30: RPR Nonreactive 10/27/17 07:30: TSH 3rd Generation 2.26 10/27/17 07:30: Fasting Glucose 86, Triglycerides 39, Cholesterol 143, LDL Cholesterol Direct 52, HDL Cholesterol 72 H Vital Signs Temp Pulse Resp BP Pulse Ox 10/29/17 07:33 97.8 F 84 20 115/65 10/28/17 15:00 75 96/59 L 10/28/17 09:31 67 119/60 10/28/17 09:30 67 119/60 10/28/17 07:52 98.7 F 67 20 119/60 10/27/17 09:22 75 112/60 10/27/17 09:14 75 112/60 10/27/17 07:15 97.6 F 75 20 112/56 L 10/26/17 21:15 98.5 F 68 20 141/68 96 Vital Signs Temp Pulse Resp BP Pulse Ox 11/05/17 07:00 97.9 F 64 20 113/68 11/04/17 16:00 70 105/62 11/04/17 06:44 97.8 F 64 20 133/67 11/03/17 16:00 61 117/58 L 11/03/17 07:43 60 129/65 11/03/17 06:45 98.3 F 60 20 129/65 11/02/17 08:54 64 162/87 H 11/02/17 08:52 64 162/87 H 11/02/17 06:53 96.8 F L 64 20 162/87 H 11/01/17 16:00 67 120/73 11/01/17 09:56 76 128/74 11/01/17 09:55 76 128/74 11/01/17 07:27 97.3 F L 66 20 97/56 L 10/31/17 16:00 71 112/53 L 10/31/17 07:18 97.8 F 69 20 123/65 10/30/17 16:00 69 121/66 10/30/17 08:58 65 131/67 10/30/17 08:56 65 135/67 10/30/17 07:04 97.7 F 65 18 131/67 10/29/17 16:00 73 116/55 L 10/29/17 07:33 97.8 F 84 20 115/65 10/28/17 15:00 75 96/59 L 10/28/17 09:31 67 119/60 10/28/17 09:30 67 119/60 10/28/17 07:52 98.7 F 67 20 119/60 10/27/17 09:22 75 112/60 10/27/17 09:14 75 112/60 10/27/17 07:15 97.6 F 75 20 112/56 L 10/26/17 21:15 98.5 F 68 20 141/68 96 Temp Pulse Resp BP Pulse Ox 97.6 F 62 20 122/66 96 11/06/17 06:59 11/06/17 09:57 11/06/17 06:59 11/06/17 09:57 10/26/17 21:15 DSM 5 Symptoms Update: Patient is a single 67-year-old white female with a psychiatric history of possible schizoaffective disorder versus schizophrenia versus major depressive disorder with psychotic symptoms, rule out OCD, multi problem prior hospitalizations most recently a [facility] [id number], in psychiatric treatment with Dr. Fong in [place], reportedly compliant with medications and follow up appts, initially pt was admitted to the medical floor for dizziness. Patient was transferred to the psychiatric inpatient unit for evaluation and stabilization of depression, hallucinations as well as possible hoarding behavior so severe that patient is facing eviction (cannot exclude pt might be paranoid and it is incorrect information). patient was seen today [facility] the [facility], hygiene is improving, patient still delusional and irrational at times, but overall better. meeting with rehabilitation case coordinator scheduled for tomorrow. pt c/o overreactive bladder, medical team notified, will order oxybutinine. from the collaterals from the rehabilitation case coordinator pt was able to maintain her apartment well up until May-June 2017 when pt started to have hording problems, pt collected coffee cups, papers, pt was advised to clean the apartment but did not get any eviction notice. pt was compliant with meds, but ? recently because pt was collecting some pill bottles. patient reports that that she tolerates medications well, no side effects observed or reported, AIMS 0, no EPS. As per nursing staff patient is compliant with the medications no agitation or aggression, patient attends groups, socially appropriate, but thought process is disorganized. Impression: Rule out schizophrenia, rule out schizoaffective disorder Medication Change: No (zoloft increased yesterday) Medical Record Reviewed: Yes Mental Status Examination - Cognitive Function Orientation: Person, Place, Situation, Time Memory: Intact Attention: WNL Concentration: WNL Association: Loose Fund of Knowledge: WNL - Mood Mood: Depressed ( "I think a little more depressed today" ), Anxious (denied) - Affect Affect: Constricted - Speech Speech: Appropriate - Formal Thought Process Formal Thought Process: Hallucinations (thought provess disorganizd), Delusions , Paranoia, Loosening of associations, Circumstantial - Suicidal Ideation Suicidal Ideation: No - Homicidal Ideation Homicidal Ideation: No Goal/Treatment Plan - Goal/Treatment Plan Need for Continued Stay: Remain at risks for inpatient hospitalization, Severe depression anxiety, Discharge may exacerbated symptoms, Severe functional impairment Progress Toward Problem(s) and Goals/Treatment Plan: milieu, structure, supportive therapy Medications were confirmed by pharmacy Risperdal discontinued Zyprexa zydis10 mg nighttime for psychosis and mood stabilization zoloft 100mg po daily for depression and anxiety Sonata as needed for insomnia rehabilitation case coordinator collaterals obtained by Medical consult appreciated, see medical team note for more detailed info consultation for discharge plan and social issues Family involvement Follow up on labs Will monitor closely Pt was educated about risk/benefits and alternatives of medications, coping strategies (safety plan, suicide prevention), relapse prevention, importance of follow up with psychiatrist and therapist, stay away from drugs/alcohol/smoking meeting with rehabilitation case coordinator requested for tomorrow Estimated Date of D/C: 11/09/17
[2017-11-06] MEDS: OLANZapine 5 mg Disintegrating Tab PO SCH (21:29)
[2017-11-07] MEDS: Budesonide 0.5 mg/2 ml Inhal Susp UD IH SCH ×2 (07:59→23:48)
[2017-11-07] MEDS: Arformoterol 15 mcg/2 ml Inh Sol IH SCH ×2 (07:59→23:47)
[2017-11-07] MEDS: Omega-3-Acid Ethyl Esters 1 GM Cap PO SCH (08:28)
[2017-11-07] MEDS: Pantoprazole 40 mg EC Tab PO SCH (08:29)
[2017-11-07] MEDS: Cholecalciferol 1,000 INTLU TAB PO SCH (08:29)
--- NOTE | 2017-11-07 16:17 | PCM.PYCHPN ---
Psychiatric Progress Note - Psychiatric Progress Note Patient seen today, length of contact: 30min Patient Chief Complaint: "I am better" Problems Identified/Issues Discussed: Suicide/ homicide prevention, past psychiatric h/o, current psychiatric symptoms , medical problems, risk/benefits and alternatives of medications, medications compliance, coping strategies, substance abuse h/o, relapse prevention, importance of follow up with psychiatrist and therapist, discharge plan. Medical Problems: hypertension, hyperlipidemia, cardiac catherization w/o stent placement, COPD, GERD, Chronic Neuropathy, stress incontinence, dizziness. Diagnostic Results: Lab Results 10/27/17 07:30: RPR Nonreactive 10/27/17 07:30: TSH 3rd Generation 2.26 10/27/17 07:30: Fasting Glucose 86, Triglycerides 39, Cholesterol 143, LDL Cholesterol Direct 52, HDL Cholesterol 72 H Vital Signs Temp Pulse Resp BP Pulse Ox 10/29/17 07:33 97.8 F 84 20 115/65 10/28/17 15:00 75 96/59 L 10/28/17 09:31 67 119/60 10/28/17 09:30 67 119/60 10/28/17 07:52 98.7 F 67 20 119/60 10/27/17 09:22 75 112/60 10/27/17 09:14 75 112/60 10/27/17 07:15 97.6 F 75 20 112/56 L 10/26/17 21:15 98.5 F 68 20 141/68 96 Vital Signs Temp Pulse Resp BP Pulse Ox 11/05/17 07:00 97.9 F 64 20 113/68 11/04/17 16:00 70 105/62 11/04/17 06:44 97.8 F 64 20 133/67 11/03/17 16:00 61 117/58 L 11/03/17 07:43 60 129/65 11/03/17 06:45 98.3 F 60 20 129/65 11/02/17 08:54 64 162/87 H 11/02/17 08:52 64 162/87 H 11/02/17 06:53 96.8 F L 64 20 162/87 H 11/01/17 16:00 67 120/73 11/01/17 09:56 76 128/74 11/01/17 09:55 76 128/74 04/26/18 07:27 97.3 F L 66 20 97/56 L 10/31/17 16:00 71 112/53 L 10/31/17 07:18 97.8 F 69 20 123/65 10/30/17 16:00 69 121/66 10/30/17 08:58 65 131/67 10/30/17 08:56 65 135/67 10/30/17 07:04 97.7 F 65 18 131/67 10/29/17 16:00 73 116/55 L 10/29/17 07:33 97.8 F 84 20 115/65 10/28/17 15:00 75 96/59 L 10/28/17 09:31 67 119/60 10/28/17 09:30 67 119/60 10/28/17 07:52 98.7 F 67 20 119/60 10/27/17 09:22 75 112/60 10/27/17 09:14 75 112/60 10/27/17 07:15 97.6 F 75 20 112/56 L 10/26/17 21:15 98.5 F 68 20 141/68 96 Temp Pulse Resp BP Pulse Ox 97.6 F 62 20 122/66 96 11/06/17 06:59 11/06/17 09:57 11/06/17 06:59 11/06/17 09:57 10/26/17 21:15 DSM 5 Symptoms Update: Patient is a single 67-year-old white female with a psychiatric history of possible schizoaffective disorder versus schizophrenia versus major depressive disorder with psychotic symptoms, rule out OCD, multi problem prior hospitalizations most recently a [facility] [id number], in psychiatric treatment with Dr. Fong in [place], reportedly compliant with medications and follow up appts, initially pt was admitted to the medical floor for dizziness. Patient was transferred to the psychiatric inpatient unit for evaluation and stabilization of depression, hallucinations as well as possible hoarding behavior so severe that patient is facing eviction (cannot exclude pt might be paranoid and it is incorrect information). patient was seen today the treatment team meeting, meeting with patient's top case assembler as well as social media marketing specialist as well as patient and this publicity writer took place today, meeting went well, please see social media marketing specialist notes for more detailed information, patient agreed to clean the apartment, presented very well. at times patient was trying to go tangents about other residents in the building and their "faults"but at the same time patient was able to be redirected and concentrate on her own problems. hygiene is improving, patient still delusional and irrational at times, but overall better. pt c/o overreactive bladder, medical team notified, will order oxybutinine. from the collaterals from the top case assembler pt was able to maintain her apartment well up until May-June 2017 when pt started to have hording problems, pt collected coffee cups, papers, pt was advised to clean the apartment but did not get any eviction notice. pt was compliant with meds, but ? recently because pt was collecting some pill bottles. patient reports that that she tolerates medications well, no side effects observed or reported, AIMS 0, no EPS. As per nursing staff patient is compliant with the medications no agitation or aggression, patient attends groups, socially appropriate, but thought process is disorganized. Impression: Rule out schizophrenia, rule out schizoaffective disorder Medication Change: Yes (Zoloft increased to 150 mg daily) Medical Record Reviewed: Yes Mental Status Examination - Cognitive Function Orientation: Person, Place, Situation, Time Memory: Intact Attention: WNL Concentration: WNL Association: Loose Fund of Knowledge: WNL - Mood Mood: Depressed ( "I think a little more depressed today" ), Anxious (denied) - Affect Affect: Constricted - Speech Speech: Appropriate - Formal Thought Process Formal Thought Process: Hallucinations (thought provess disorganizd), Delusions , Paranoia, Loosening of associations, Circumstantial - Suicidal Ideation Suicidal Ideation: No - Homicidal Ideation Homicidal Ideation: No Goal/Treatment Plan - Goal/Treatment Plan Need for Continued Stay: Remain at risks for inpatient hospitalization, Severe depression anxiety, Discharge may exacerbated symptoms, Severe functional impairment Progress Toward Problem(s) and Goals/Treatment Plan: milieu, structure, supportive therapy Medications were confirmed by pharmacy Risperdal discontinued Zyprexa zydis10 mg nighttime for psychosis and mood stabilization zoloft 150mg po daily for depression and anxiety Sonata as needed for insomnia top case assembler collaterals obtained by Medical consult appreciated, see medical team note for more detailed info consultation for discharge plan and social issues Family involvement Follow up on labs Will monitor closely Pt was educated about risk/benefits and alternatives of medications, coping strategies (safety plan, suicide prevention), relapse prevention, importance of follow up with psychiatrist and therapist, stay away from drugs/alcohol/smoking meeting with top case assembler appreciated 11/07/2017 Estimated Date of D/C: 11/12/17
[2017-11-07] MEDS: OLANZapine 5 mg Disintegrating Tab PO SCH (22:14)
[2017-11-08] MEDS: Arformoterol 15 mcg/2 ml Inh Sol IH SCH ×2 (08:00→19:40)
[2017-11-08] MEDS: Budesonide 0.5 mg/2 ml Inhal Susp UD IH SCH ×2 (08:00→19:40)
[2017-11-08] MEDS: Omega-3-Acid Ethyl Esters 1 GM Cap PO SCH (08:44)
[2017-11-08] MEDS: Pantoprazole 40 mg EC Tab PO SCH (08:46)
[2017-11-08] MEDS: Cholecalciferol 1,000 INTLU TAB PO SCH (08:46)
--- NOTE | 2017-11-08 15:39 | PCM.PYCHPN ---
Psychiatric Progress Note - Psychiatric Progress Note Patient seen today, length of contact: 30min Patient Chief Complaint: "I M drinking a lot of water but I'm not using bathroom that often, please call medical , I was on oxybutynin" Problems Identified/Issues Discussed: Suicide/ homicide prevention, past psychiatric h/o, current psychiatric symptoms , medical problems, risk/benefits and alternatives of medications, medications compliance, coping strategies, substance abuse h/o, relapse prevention, importance of follow up with psychiatrist and therapist, discharge plan. Medical Problems: hypertension, hyperlipidemia, cardiac catherization w/o stent placement, COPD, GERD, Chronic Neuropathy, stress incontinence, dizziness. Diagnostic Results: Lab Results 10/27/17 07:30: RPR Nonreactive 10/27/17 07:30: TSH 3rd Generation 2.26 10/27/17 07:30: Fasting Glucose 86, Triglycerides 39, Cholesterol 143, LDL Cholesterol Direct 52, HDL Cholesterol 72 H Vital Signs Temp Pulse Resp BP Pulse Ox 10/29/17 07:33 97.8 F 84 20 115/65 10/28/17 15:00 75 96/59 L 10/28/17 09:31 67 119/60 10/28/17 09:30 67 119/60 10/28/17 07:52 98.7 F 67 20 119/60 10/27/17 09:22 75 112/60 10/27/17 09:14 75 112/60 10/27/17 07:15 97.6 F 75 20 112/56 L 10/26/17 21:15 98.5 F 68 20 141/68 96 Vital Signs Temp Pulse Resp BP Pulse Ox 11/05/17 07:00 97.9 F 64 20 113/68 11/04/17 16:00 70 105/62 11/04/17 06:44 97.8 F 64 20 133/67 11/03/17 16:00 61 117/58 L 11/03/17 07:43 60 129/65 11/03/17 06:45 98.3 F 60 20 129/65 11/02/17 08:54 64 162/87 H 11/02/17 08:52 64 162/87 H 11/02/17 06:53 96.8 F L 64 20 162/87 H 11/01/17 16:00 67 120/73 11/01/17 09:56 76 128/74 11/01/17 09:55 76 128/74 11/01/17 07:27 97.3 F L 66 20 97/56 L 10/31/17 16:00 71 112/53 L 10/31/17 07:18 97.8 F 69 20 123/65 10/30/17 16:00 69 121/66 10/30/17 08:58 65 131/67 10/30/17 08:56 65 135/67 10/30/17 07:04 97.7 F 65 18 131/67 10/29/17 16:00 73 116/55 L 10/29/17 07:33 97.8 F 84 20 115/65 10/28/17 15:00 75 96/59 L 10/28/17 09:31 67 119/60 10/28/17 09:30 67 119/60 10/28/17 07:52 98.7 F 67 20 119/60 10/27/17 09:22 75 112/60 10/27/17 09:14 75 112/60 10/27/17 07:15 97.6 F 75 20 112/56 L 10/26/17 21:15 98.5 F 68 20 141/68 96 Temp Pulse Resp BP Pulse Ox 97.6 F 62 20 122/66 96 11/06/17 06:59 11/06/17 09:57 11/06/17 06:59 11/06/17 09:57 10/26/17 21:15 Temp Pulse Resp BP Pulse Ox 97.7 F 62 20 127/66 96 11/08/17 07:14 11/08/17 07:14 11/08/17 07:14 11/08/17 07:14 10/26/17 21:15 DSM 5 Symptoms Update: Patient is a single 67-year-old white female with a psychiatric history of possible schizoaffective disorder versus schizophrenia versus major depressive disorder with psychotic symptoms, rule out OCD, multi problem prior hospitalizations most recently a [facility] [id number], in psychiatric treatment with Dr. Fong in [place], reportedly compliant with medications and follow up appts, initially pt was admitted to the medical floor for dizziness. Patient was transferred to the psychiatric inpatient unit for evaluation and stabilization of depression, hallucinations as well as possible hoarding behavior so severe that patient is facing eviction (cannot exclude pt might be paranoid and it is incorrect information). patient was seen today the treatment team meeting, meeting with patient's telephonic nurse case manager as well as social economist as well as patient and this va underwriter took place today, meeting went well, please see social economist notes for more detailed information, patient agreed to clean the apartment, presented very well. at times patient was trying to go tangents about other residents in the building and their "faults" but at the same time patient was able to be redirected and concentrate on her own problems. hygiene is improving, patient still delusional and irrational at times, but overall better. pt c/o overreactive bladder, medical team was notified second time, discussed with Dr. Waite, they will order oxybutinine. from the collaterals from the telephonic nurse case manager pt was able to maintain her apartment well up until May-June 2017 when pt started to have hording problems, pt collected coffee cups, papers, pt was advised to clean the apartment but did not get any eviction notice. pt was compliant with meds, but ? recently because pt was collecting some pill bottles. patient reports that that she tolerates medications well, no side effects observed or reported, AIMS 0, no EPS. As per nursing staff patient is compliant with the medications no agitation or aggression, patient attends groups, socially appropriate, but thought process is disorganized. Impression: Rule out schizophrenia, rule out schizoaffective disorder Medication Change: Yes (Zoloft increased to 150 mg daily, yesterday, ) Medical Record Reviewed: Yes Consults ordered or reviewed: medical consult appreciated see notes for more detailed information Mental Status Examination - Cognitive Function Orientation: Person, Place, Situation, Time Memory: Intact Attention: WNL Concentration: WNL Association: Loose Fund of Knowledge: WNL - Mood Mood: Depressed ( "I think a little more depressed today" ), Anxious (denied) - Affect Affect: Constricted - Speech Speech: Appropriate - Formal Thought Process Formal Thought Process: Hallucinations (thought provess disorganizd), Delusions , Paranoia, Loosening of associations, Circumstantial - Suicidal Ideation Suicidal Ideation: No - Homicidal Ideation Homicidal Ideation: No Goal/Treatment Plan - Goal/Treatment Plan Need for Continued Stay: Remain at risks for inpatient hospitalization, Severe depression anxiety, Discharge may exacerbated symptoms, Severe functional impairment Progress Toward Problem(s) and Goals/Treatment Plan: milieu, structure, supportive therapy Medications were confirmed by pharmacy Risperdal discontinued Zyprexa zydis10 mg nighttime for psychosis and mood stabilization zoloft 150mg po daily for depression and anxiety Sonata as needed for insomnia telephonic nurse case manager collaterals obtained by Medical consult appreciated, see medical team note for more detailed info consultation for discharge plan and social issues Family involvement Follow up on labs Will monitor closely Pt was educated about risk/benefits and alternatives of medications, coping strategies (safety plan, suicide prevention), relapse prevention, importance of follow up with psychiatrist and therapist, stay away from drugs/alcohol/smoking meeting with telephonic nurse case manager appreciated 11/07/2017 Estimated Date of D/C: 11/12/17
--- NOTE | 2017-11-08 15:44 | CP.PCM.CON ---
<Robert Chappell - Last Filed: 11/08/17 16:11> History of Present Illness - History of Present Illness History of Present Illness: Subjective: CC: Urinary Difficulty HPI: This patient is a 67 year old female with a past medical history of hypertension, hyperlipidemia, cardiac catherization w/o stent placement, COPD, GERD, Chronic Neuropathy, stress incontinence, and possible schizoaffective disorder who is currently undergoing treatment in the inpatient psych unit. Medicine team was consulted to manage patients urinary symptoms. States that is she experiencing urinary frequency. Cannot quantify the frequency. Denies increased liquid intake and caffeine intake. Denies pain with urination. Denies fever, chills, chest pain, shortness of breath, abdominal pain, nausea, vomiting , diarrhea, constipation. 12-point review of systems negative except as indicated in the HPI PMHx: hypertension, hyperlipidemia, cardiac catherization w/o stent placement , COPD, GERD, Chronic Neuropathy, and possible schizoaffective disorder, Stress Incontinence PSHx: Spina Bifida Surgery (infancy), tonsillectomy, septorhinoplasty, Allergies: Patient Denied. Per chart, Sulfa Antibiotics Social: Lives in [place] [address] with other people, says she is getting moved to homeless [facility], Denies tobacco, alcohol, or illicit drug use. Has a cousin in [place] [facility] [place] 3[place]4 [place] ago FamHx: Non-Contribitory Meds: Please see SEP PMD: Dr. Charan Valdivia Psychiatrist: Sees Psychiatrist in [place] Physical Examination: - Constitutional Appears: Non-toxic, No Acute Distress, Unkempt - Head Exam Head Exam: ATRAUMATIC, NORMAL INSPECTION, NORMOCEPHALIC - Eye Exam Eye Exam: EOMI, Normal appearance - ENT Exam ENT Exam: Mucous Membranes Moist - Respiratory Exam Respiratory Exam: Clear to Auscultation Bilateral, NORMAL BREATHING PATTERN. absent: Decreased Breath Sounds, Rales, Rhonchi - Cardiovascular Exam Cardiovascular Exam: RRR, +S1, +S2. absent: Diastolic murmur, JVD, Systolic Murmur - GI/Abdominal Exam GI & Abdominal Exam: no suprapubic tenderness; Normal Bowel Sounds, Soft. absent: Distended, Tenderness - Extremities Exam Extremities exam: Positive for: normal capillary refill. Negative for: pedal edema - Back Exam Back exam: absent: CVA tenderness (L), CVA tenderness (R) - Neurological Exam Neurological exam: Patient is awake, alert, responds to verbal stimuli, answers questions appropriately, follows commands, and moves extremities past midline - Skin Skin Exam: Dry, Intact, Normal Color, Warm Assessment and Plan: This patient is a 67 year old female with a past medical history of hypertension, hyperlipidemia, cardiac catherization w/o stent placement, COPD, GERD, Chronic Neuropathy, stress incontinence, and possible schizoaffective disorder who was recently transferred from the hospital to the psych unit after beign evaluated and treated for dizziness. Urinary Frequency - stress incontinence - continue home oxybutynin 5 mg PO HS - takes myrbetriq 25mg PO daily- not formulary in hospital Hx of HTN - blood pressure reviewed, trended, and appreciated- within normal limits - continue metoprolol 25mg Daily - continue Lisinopril 10 Daily Hx of HLD - continue home lipitor 10mg PO DIN and lovaza 2mg Daily Hx of COPD - continue brovana and pulmicort respules Hx of GERD - continue protonix 40 Daily Depression/Psychiatric Hx: - as per psych Prophylaxis: - GI ppx- Protonix - DVT ppx- SCD's Patient case discussed with, and plan approved by attending physician, Dr. Rushing. Medicine team will sign off at this time. Please reconsult if needed. Thank you for the opportunity to participate in the care of this patient. Past Patient History - Infectious Disease Hx of Infectious Diseases: None - Tetanus Immunizations Tetanus Immunization: Unknown - Past Social History Smoking Status: Unknown If Ever Smoked - CARDIAC Hx Hypertension: Yes - PULMONARY Hx Chronic Obstructive Pulmonary Disease (COPD): Yes - NEUROLOGICAL Hx Neurological Disorder: Yes Hx Dizziness: Yes - HEENT Hx HEENT Problems: No - RENAL Hx Chronic Kidney Disease: No - ENDOCRINE/METABOLIC Hx Endocrine Disorders: No - HEMATOLOGICAL/ONCOLOGICAL Hx Blood Disorders: No - INTEGUMENTARY Hx Dermatological Problems: Yes Other/Comment: 10-25-17 FADING BRUISE TO LEFT THIGH.DENIES FALLING.HIT IT ON SOMETHING. LARGE HORIZONTAL SCAR TO LOWER BACK.HAS A HAIRY BACK. - MUSCULOSKELETAL/RHEUMATOLOGICAL Hx Musculoskeletal Disorders: Yes Hx Falls: Yes Hx Unsteady Gait: Yes - GASTROINTESTINAL Hx Gastrointestinal Disorders: No - GENITOURINARY/GYNECOLOGICAL Hx Genitourinary Disorders: Yes Hx Urinary Tract Infection: Yes Other/Comment: STRESS INCONTINENCE,URGENCY. - PSYCHIATRIC Hx Substance Use: No - SURGICAL HISTORY Hx Surgeries: Yes Hx Tonsillectomy: Yes Other/Comment: spina bifida,rhinoplasty - ANESTHESIA Hx Anesthesia: Yes Hx Anesthesia Reactions: No Hx Malignant Hyperthermia: No Meds Allergies/Adverse Reactions: Allergies Allergy/AdvReac Type Severity Reaction Status Date / Time Sulfa (Sulfonamide Allergy RASH Verified 10/26/17 22:25 Antibiotics) - Medications Medications: Current Medications Acetaminophen (Tylenol 325mg Tab) 650 mg PO Q4 PRN PRN Reason: Pain, moderate (4-7) Last Admin: 11/05/17 21:13 Dose: 650 mg Al Hydrox/Mg Hydrox/Simethicone (Maalox Plus 30 Ml) 30 ml PO DAILY PRN PRN Reason: Upset Stomach Arformoterol Tartrate (Brovana) 15 mcg IH [id number] [facility] Last Admin: 11/08/17 08:00 Dose: Not Given Artificial Tears (Refresh Opth Soln) 0.3 ml OD DAILY PRN PRN Reason: Dry eyes Atorvastatin Calcium (Lipitor) 10 mg PO DIN [facility] Last Admin: 11/07/17 16:50 Dose: 10 mg Baclofen (Lioresal) 10 mg PO BID [facility] Last Admin: 11/08/17 08:46 Dose: 10 mg Budesonide (Pulmicort Respules) 0.5 mg IH [id number] [facility] Last Admin: 11/08/17 08:00 Dose: Not Given Cholecalciferol (Vitamin D) 2,000 intlu PO DAILY [facility] Last Admin: 11/08/17 08:46 Dose: 2,000 intlu Docusate Sodium (Colace) 100 mg PO BID [facility] Lisinopril (Zestril) 10 mg PO DAILY [facility] Last Admin: 11/08/17 08:46 Dose: 10 mg Loratadine (Claritin) 10 mg PO DAILY [facility] Last Admin: 11/08/17 08:46 Dose: 10 mg Magnesium Hydroxide (Milk Of Magnesia) 30 ml PO DAILY PRN PRN Reason: Constipation Memantine (Namenda) 10 mg PO DAILY [facility] Last Admin: 11/08/17 08:44 Dose: 10 mg Metoprolol Tartrate (Lopressor) 25 mg PO DAILY [facility] Last Admin: 11/08/17 08:45 Dose: 25 mg Naproxen (Anaprox Ds) 550 mg PO BID PRN PRN Reason: Pain, moderate (4-7) Last Admin: 11/04/17 15:55 Dose: 550 mg Olanzapine (Zyprexa Zydis) 10 mg PO HS WENDIE PRN Reason: Protocol Last Admin: 11/07/17 22:14 Dose: 10 mg Zgpfe-2-Idoz Ethyl Esters (Lovaza) 2 gm PO DAILY [facility] Last Admin: 11/08/17 08:44 Dose: 2 gm Pantoprazole Sodium (Protonix Ec Tab) 40 mg PO DAILY [facility] Last Admin: 11/08/17 08:46 Dose: 40 mg Sertraline HCl (Zoloft) 150 mg PO DAILY [facility] Last Admin: 11/08/17 08:45 Dose: 150 mg Vitamin E (Vitamin E 400 Units Cap) 400 intlu PO DAILY [facility] Last Admin: 11/08/17 08:44 Dose: 400 intlu Zaleplon (Sonata) 5 mg PO HS PRN PRN Reason: Insomnia Last Admin: 10/28/17 22:02 Dose: 5 mg Results - Vital Signs Recent Vital Signs: Last Vital Signs Temp 97.7 F 11/08/17 07:14 Pulse 62 11/08/17 07:14 Resp 20 11/08/17 07:14 BP 127/66 11/08/17 07:14 Pulse Ox 96 10/26/17 21:15 - Labs Result Diagrams: 11/06/17 07:45 11/06/17 07:45 <Chon Rushing - Last Filed: 11/09/17 11:52> Meds - Medications Medications: Current Medications Acetaminophen (Tylenol 325mg Tab) 650 mg PO Q4 PRN PRN Reason: Pain, moderate (4-7) Last Admin: 11/05/17 21:13 Dose: 650 mg Al Hydrox/Mg Hydrox/Simethicone (Maalox Plus 30 Ml) 30 ml PO DAILY PRN PRN Reason: Upset Stomach Arformoterol Tartrate (Brovana) 15 mcg IH [id number] [facility] Last Admin: 11/09/17 08:13 Dose: 15 mcg Artificial Tears (Refresh Opth Soln) 0.3 ml OD DAILY PRN PRN Reason: Dry eyes Atorvastatin Calcium (Lipitor) 10 mg PO DIN [facility] Last Admin: 11/08/17 18:24 Dose: 10 mg Baclofen (Lioresal) 10 mg PO BID [facility] Last Admin: 11/09/17 10:45 Dose: 10 mg Budesonide (Pulmicort Respules) 0.5 mg IH [id number] [facility] Last Admin: 11/09/17 08:13 Dose: 0.5 mg Cholecalciferol (Vitamin D) 2,000 intlu PO DAILY [facility] Last Admin: 11/09/17 10:46 Dose: 2,000 intlu Docusate Sodium (Colace) 100 mg PO BID [facility] Last Admin: 11/09/17 10:45 Dose: 100 mg Lisinopril (Zestril) 10 mg PO DAILY [facility] Last Admin: 11/09/17 10:46 Dose: 10 mg Loratadine (Claritin) 10 mg PO DAILY [facility] Last Admin: 11/09/17 10:45 Dose: 10 mg Magnesium Hydroxide (Milk Of Magnesia) 30 ml PO DAILY PRN PRN Reason: Constipation Memantine (Namenda) 10 mg PO DAILY [facility] Last Admin: 11/09/17 10:46 Dose: 10 mg Metoprolol Tartrate (Lopressor) 25 mg PO DAILY [facility] Last Admin: 11/09/17 10:46 Dose: 25 mg Naproxen (Anaprox Ds) 550 mg PO BID PRN PRN Reason: Pain, moderate (4-7) Last Admin: 11/04/17 15:55 Dose: 550 mg Olanzapine (Zyprexa Zydis) 10 mg PO HS [facility] PRN Reason: Protocol Last Admin: 11/08/17 21:19 Dose: 10 mg Ebfub-7-Zilw Ethyl Esters (Lovaza) 2 gm PO DAILY [facility] Last Admin: 11/09/17 10:45 Dose: 2 gm Oxybutynin Chloride (Ditropan Tab) 5 mg PO HS [facility] Last Admin: 11/08/17 21:20 Dose: 5 mg Pantoprazole Sodium (Protonix Ec Tab) 40 mg PO DAILY [facility] Last Admin: 11/09/17 10:47 Dose: 40 mg Sertraline HCl (Zoloft) 150 mg PO DAILY [facility] Last Admin: 11/09/17 10:45 Dose: 150 mg Vitamin E (Vitamin E 400 Units Cap) 400 intlu PO DAILY [facility] Last Admin: 11/09/17 10:45 Dose: 400 intlu Zaleplon (Sonata) 5 mg PO HS PRN PRN Reason: Insomnia Last Admin: 10/28/17 22:02 Dose: 5 mg Results - Vital Signs Recent Vital Signs: Last Vital Signs Temp 98.8 F 11/09/17 07:16 Pulse 62 11/09/17 07:16 Resp 20 11/09/17 07:16 BP 131/65 11/09/17 07:16 Pulse Ox 96 10/26/17 21:15 - Labs Result Diagrams: 11/06/17 07:45 11/06/17 07:45 Attending/Attestation - Attestation I have personally seen and examined this patient.: Yes I have fully participated in the care of the patient.: Yes I have reviewed all pertinent clinical information: Yes Notes (Text): 11/09/17 11:50 attending note; Patient is alert and awake. Denies any complaints. Tolerating diet. Ambulating fine. complaining of urinary incontinence. started back on oxybutynin. can start Myrbetriq as outpatient. Vitals stable. Continue physical therapy. Physical therapy evaluation appreciated. Patient usually walks with a cane. Patient had spina bifida surgery. Upon discharge patient will follow-up with PMD of choice.
--- NOTE | 2017-11-08 18:35 | US ---
PROCEDURE: Bladder ultrasound HISTORY: ATT: BLADDER RESIDUAL COMPARISON: None TECHNIQUE: Standard protocol for this study/examination. FINDINGS: Urinary bladder assessment: Prevoid volume: 620.9 ml Postvoid residual: 22.2 ml Intrinsic, mural, perivesical abnormalities: None Ureteral jets: Not visualized IMPRESSION: Unremarkable urinary bladder. Normal capacitance. Small postvoid residual.
[2017-11-08] MEDS: OLANZapine 5 mg Disintegrating Tab PO SCH (21:19)
[2017-11-09] MEDS: Arformoterol 15 mcg/2 ml Inh Sol IH SCH ×2 (08:13→22:30)
[2017-11-09] MEDS: Budesonide 0.5 mg/2 ml Inhal Susp UD IH SCH ×2 (08:13→22:30)
[2017-11-09] MEDS: Omega-3-Acid Ethyl Esters 1 GM Cap PO SCH (10:45)
[2017-11-09] MEDS: Cholecalciferol 1,000 INTLU TAB PO SCH (10:46)
[2017-11-09] MEDS: Pantoprazole 40 mg EC Tab PO SCH (10:47)
[2017-11-09] MEDS: Magnesium Hydroxide Susp 30 ml UD PO PRN (13:28)
--- NOTE | 2017-11-09 14:44 | PCM.PYCHPN ---
Psychiatric Progress Note - Psychiatric Progress Note Patient seen today, length of contact: 30min Patient Chief Complaint: "I feel okay" Problems Identified/Issues Discussed: Suicide/ homicide prevention, past psychiatric h/o, current psychiatric symptoms , medical problems, risk/benefits and alternatives of medications, medications compliance, coping strategies, substance abuse h/o, relapse prevention, importance of follow up with psychiatrist and therapist, discharge plan. Medical Problems: hypertension, hyperlipidemia, cardiac catherization w/o stent placement, COPD, GERD, Chronic Neuropathy, stress incontinence, dizziness. Diagnostic Results: Lab Results 10/27/17 07:30: RPR Nonreactive 10/27/17 07:30: TSH 3rd Generation 2.26 10/27/17 07:30: Fasting Glucose 86, Triglycerides 39, Cholesterol 143, LDL Cholesterol Direct 52, HDL Cholesterol 72 H Vital Signs Temp Pulse Resp BP Pulse Ox 10/29/17 07:33 97.8 F 84 20 115/65 10/28/17 15:00 75 96/59 L 10/28/17 09:31 67 119/60 10/28/17 09:30 67 119/60 10/28/17 07:52 98.7 F 67 20 119/60 10/27/17 09:22 75 112/60 10/27/17 09:14 75 112/60 10/27/17 07:15 97.6 F 75 20 112/56 L 10/26/17 21:15 98.5 F 68 20 141/68 96 Vital Signs Temp Pulse Resp BP Pulse Ox 11/05/17 07:00 97.9 F 64 20 113/68 11/04/17 16:00 70 105/62 11/04/17 06:44 97.8 F 64 20 133/67 11/03/17 16:00 61 117/58 L 11/03/17 07:43 60 129/65 11/03/17 06:45 98.3 F 60 20 129/65 11/02/17 08:54 64 162/87 H 11/02/17 08:52 64 162/87 H 11/02/17 06:53 96.8 F L 64 20 162/87 H 11/01/17 16:00 67 120/73 11/01/17 09:56 76 128/74 11/01/17 09:55 76 128/74 11/01/17 07:27 97.3 F L 66 20 97/56 L 10/31/17 16:00 71 112/53 L 10/31/17 07:18 97.8 F 69 20 123/65 10/30/17 16:00 69 121/66 10/30/17 08:58 65 131/67 10/30/17 08:56 65 135/67 10/30/17 07:04 97.7 F 65 18 131/67 10/29/17 16:00 73 116/55 L 10/29/17 07:33 97.8 F 84 20 115/65 10/28/17 15:00 75 96/59 L 10/28/17 09:31 67 119/60 10/28/17 09:30 67 119/60 10/28/17 07:52 98.7 F 67 20 119/60 10/27/17 09:22 75 112/60 10/27/17 09:14 75 112/60 10/27/17 07:15 97.6 F 75 20 112/56 L 10/26/17 21:15 98.5 F 68 20 141/68 96 Temp Pulse Resp BP Pulse Ox 97.6 F 62 20 122/66 96 11/06/17 06:59 11/06/17 09:57 11/06/17 06:59 11/06/17 09:57 10/26/17 21:15 Temp Pulse Resp BP Pulse Ox 97.7 F 62 20 127/66 96 11/08/17 07:14 11/08/17 07:14 11/08/17 07:14 11/08/17 07:14 10/26/17 21:15 Temp Pulse Resp BP Pulse Ox 98.8 F 62 20 131/65 96 11/09/17 07:16 11/09/17 07:16 11/09/17 07:16 11/09/17 07:16 10/26/17 21:15 DSM 5 Symptoms Update: Patient is a single 67-year-old white female with a psychiatric history of possible schizoaffective disorder versus schizophrenia versus major depressive disorder with psychotic symptoms, rule out OCD, multi problem prior hospitalizations most recently a [facility] [id number], in psychiatric treatment with Dr. Fong in [place], reportedly compliant with medications and follow up appts, initially pt was admitted to the medical floor for dizziness. Patient was transferred to the psychiatric inpatient unit for evaluation and stabilization of depression, hallucinations as well as possible hoarding behavior so severe that patient is facing eviction (cannot exclude pt might be paranoid and it is incorrect information). patient was seen today next to the nursing station, pt presented well, hygiene is improving, patient still delusional and irrational at times, but overall better. pt c/o overreactive bladder, medical team was notified second time, discussed with Dr. Waite, they will order oxybutinine. from the collaterals from the ed case manager pt was able to maintain her apartment well up until May-June 2017 when pt started to have hording problems, pt collected coffee cups, papers, pt was advised to clean the apartment but did not get any eviction notice. pt was compliant with meds, but ? recently because pt was collecting some pill bottles. patient reports that that she tolerates medications well, no side effects observed or reported, AIMS 0, no EPS. As per nursing staff patient is compliant with the medications no agitation or aggression, patient attends groups, socially appropriate, but thought process is disorganized. Impression: Rule out schizophrenia, rule out schizoaffective disorder Medication Change: No Medical Record Reviewed: Yes Mental Status Examination - Cognitive Function Orientation: Person, Place, Situation, Time Memory: Intact Attention: WNL Concentration: WNL Association: Loose Fund of Knowledge: WNL - Mood Mood: Depressed ( "I think a little more depressed today" ), Anxious (denied) - Affect Affect: Constricted - Speech Speech: Appropriate - Formal Thought Process Formal Thought Process: Hallucinations (thought provess disorganizd), Delusions , Paranoia, Loosening of associations, Circumstantial - Suicidal Ideation Suicidal Ideation: No - Homicidal Ideation Homicidal Ideation: No Goal/Treatment Plan - Goal/Treatment Plan Need for Continued Stay: Remain at risks for inpatient hospitalization, Severe depression anxiety, Discharge may exacerbated symptoms, Severe functional impairment Progress Toward Problem(s) and Goals/Treatment Plan: milieu, structure, supportive therapy Medications were confirmed by pharmacy Zyprexa [id number] mg nighttime for psychosis and mood stabilization zoloft 150mg po daily for depression and anxiety Sonata as needed for insomnia ed case manager collaterals obtained by Medical consult appreciated, see medical team note for more detailed info consultation for discharge plan and social issues Family involvement Follow up on labs Will monitor closely Pt was educated about risk/benefits and alternatives of medications, coping strategies (safety plan, suicide prevention), relapse prevention, importance of follow up with psychiatrist and therapist, stay away from drugs/alcohol/smoking meeting with ed case manager appreciated 11/07/2017 Estimated Date of D/C: 11/12/17
[2017-11-09] MEDS: OLANZapine 5 mg Disintegrating Tab PO SCH (21:08)
[2017-11-10] MEDS: Cholecalciferol 1,000 INTLU TAB PO SCH (08:07)
[2017-11-10] MEDS: Pantoprazole 40 mg EC Tab PO SCH (08:08)
[2017-11-10] MEDS: Omega-3-Acid Ethyl Esters 1 GM Cap PO SCH (08:09)
[2017-11-10] MEDS: Arformoterol 15 mcg/2 ml Inh Sol IH SCH ×2 (08:49→20:10)
[2017-11-10] MEDS: Budesonide 0.5 mg/2 ml Inhal Susp UD IH SCH ×2 (08:49→20:10)
--- NOTE | 2017-11-10 11:04 | CP.PCM.PN ---
<AndraLisa - Last Filed: 11/10/17 13:25> Subjective - Date & Time of Evaluation Date of Evaluation: 11/10/17 Time of Evaluation: 11:04 - Subjective Subjective: Medicine Progress note for Dr. Rushing Patient seen and examined at bedside. Patient was complaining of chest pain this morning which she reported only happens at rest. She stated it was a localized pain in the middle of her left breast that occured twice when she was resting and resolved with ambulation. Patient rated the pain 9/10 and sharp in nature. She denied any associated SOB or palpitations. She did complain of a headache the day before and some constipation which also resolves when she walks. She denied acute complaints of fever, chills, dizziness, palpitations, cough, abd pain, bowel complaints, diarrhea, pain/swelling in her legs b/l. Objective - Vital Signs/Intake and Output Vital Signs (last 24 hours): Temp Pulse Resp BP Pulse Ox 97.8 F 67 18 116/65 96 11/10/17 06:58 11/10/17 08:06 11/10/17 06:58 11/10/17 08:06 10/26/17 21:15 - Medications Medications: Current Medications Acetaminophen (Tylenol 325mg Tab) 650 mg PO Q4 PRN PRN Reason: Pain, moderate (4-7) Last Admin: 11/05/17 21:13 Dose: 650 mg Al Hydrox/Mg Hydrox/Simethicone (Maalox Plus 30 Ml) 30 ml PO DAILY PRN PRN Reason: Upset Stomach Arformoterol Tartrate (Brovana) 15 mcg IH [id number] [facility] Last Admin: 11/10/17 08:49 Dose: 15 mcg Artificial Tears (Refresh Opth Soln) 0.3 ml OD DAILY PRN PRN Reason: Dry eyes Atorvastatin Calcium (Lipitor) 10 mg PO DIN [facility] Last Admin: 11/09/17 17:15 Dose: 10 mg Baclofen (Lioresal) 10 mg PO BID [facility] Last Admin: 11/10/17 08:08 Dose: 10 mg Budesonide (Pulmicort Respules) 0.5 mg IH [id number] [facility] Last Admin: 11/10/17 08:49 Dose: 0.5 mg Cholecalciferol (Vitamin D) 2,000 intlu PO DAILY [facility] Last Admin: 11/10/17 08:07 Dose: 2,000 intlu Docusate Sodium (Colace) 100 mg PO BID [facility] Last Admin: 11/10/17 08:07 Dose: 100 mg Lisinopril (Zestril) 10 mg PO DAILY [facility] Last Admin: 11/10/17 08:06 Dose: 10 mg Loratadine (Claritin) 10 mg PO DAILY [facility] Last Admin: 11/10/17 08:08 Dose: 10 mg Magnesium Hydroxide (Milk Of Magnesia) 30 ml PO DAILY PRN PRN Reason: Constipation Last Admin: 11/09/17 13:28 Dose: 30 ml Memantine (Namenda) 10 mg PO DAILY [facility] Last Admin: 11/10/17 08:07 Dose: 10 mg Metoprolol Tartrate (Lopressor) 25 mg PO DAILY [facility] Last Admin: 11/10/17 08:06 Dose: 25 mg Naproxen (Anaprox Ds) 550 mg PO BID PRN PRN Reason: Pain, moderate (4-7) Last Admin: 11/04/17 15:55 Dose: 550 mg Olanzapine (Zyprexa Zydis) 10 mg PO HS [facility] PRN Reason: Protocol Last Admin: 11/09/17 21:08 Dose: 10 mg [id number] Ethyl Esters (Lovaza) 2 gm PO DAILY [facility] Last Admin: 11/10/17 08:09 Dose: 2 gm Oxybutynin Chloride (Ditropan Tab) 5 mg PO HS [facility] Last Admin: 11/09/17 21:08 Dose: 5 mg Pantoprazole Sodium (Protonix Ec Tab) 40 mg PO DAILY [facility] Last Admin: 11/10/17 08:08 Dose: 40 mg Sertraline HCl (Zoloft) 150 mg PO DAILY [facility] Last Admin: 11/10/17 08:09 Dose: 150 mg Vitamin E (Vitamin E 400 Units Cap) 400 intlu PO DAILY [facility] Last Admin: 11/10/17 08:08 Dose: 400 intlu Zaleplon (Sonata) 5 mg PO HS PRN PRN Reason: Insomnia Last Admin: 10/28/17 22:02 Dose: 5 mg - Labs Labs: 11/06/17 07:45 11/06/17 07:45 - Constitutional Appears: No Acute Distress, Unkempt - Head Exam Head Exam: ATRAUMATIC, NORMAL INSPECTION, NORMOCEPHALIC - Eye Exam Eye Exam: EOMI, Normal appearance, PERRL. absent: Conjunctival injection, Scleral icterus - ENT Exam ENT Exam: Mucous Membranes Moist - Neck Exam Neck Exam: Full ROM. absent: Lymphadenopathy - Respiratory Exam Respiratory Exam: Clear to Ausculation Bilateral, NORMAL BREATHING PATTERN. absent: Accessory Muscle Use, Rales, Rhonchi, Wheezes, Respiratory Distress - Cardiovascular Exam Cardiovascular Exam: RRR, +S1, +S2 - GI/Abdominal Exam GI & Abdominal Exam: Soft, Normal Bowel Sounds. absent: Firm, Guarding, Rigid, Tenderness - Rectal Exam Rectal Exam: Deferred - Extremities Exam Extremities Exam: Normal Inspection. absent: Pedal Edema - Neurological Exam Neurological Exam: Alert, Awake, CN II-XII Intact, Oriented x3 - Psychiatric Exam Psychiatric exam: Normal Affect, Normal Mood - Skin Skin Exam: Dry, Intact Assessment and Plan - Assessment and Plan (Free Text) Assessment: 67 year old female with a past medical history of hypertension, hyperlipidemia , cardiac catherization w/o stent placement, COPD, GERD, Chronic Neuropathy, stress incontinence, and possible schizoaffective disorder who is currently undergoing treatment in the inpatient psych unit. Medicine was reconsulted for chest pain. Plan: Chest pain -resolved upon examination -troponin negative and EKG had no acute ST changes f/u trop x 1 Hx of HTN - BP reviewed, trended, and appreciated- within normal limits - continue current management Hx of HLD - continue current management Patient's chest pain deemed non cardiac. Medicine will sign off at this time. Please reconsult as needed. Discussed with Dr. Сергей Silverman PGY2 <Chon Rushing - Last Filed: 11/10/17 15:50> Objective - Vital Signs/Intake and Output Vital Signs (last 24 hours): Temp Pulse Resp BP Pulse Ox 97.8 F 67 18 116/65 96 11/10/17 06:58 11/10/17 08:06 11/10/17 06:58 11/10/17 08:06 10/26/17 21:15 - Medications Medications: Current Medications Acetaminophen (Tylenol 325mg Tab) 650 mg PO Q4 PRN PRN Reason: Pain, moderate (4-7) Last Admin: 11/05/17 21:13 Dose: 650 mg Al Hydrox/Mg Hydrox/Simethicone (Maalox Plus 30 Ml) 30 ml PO DAILY PRN PRN Reason: Upset Stomach Arformoterol Tartrate (Brovana) 15 mcg IH [id number] [facility] Last Admin: 11/10/17 08:49 Dose: 15 mcg Artificial Tears (Refresh Opth Soln) 0.3 ml OD DAILY PRN PRN Reason: Dry eyes Atorvastatin Calcium (Lipitor) 10 mg PO DIN [facility] Last Admin: 11/09/17 17:15 Dose: 10 mg Baclofen (Lioresal) 10 mg PO BID [facility] Last Admin: 11/10/17 08:08 Dose: 10 mg Budesonide (Pulmicort Respules) 0.5 mg IH [id number] [facility] Last Admin: 11/10/17 08:49 Dose: 0.5 mg Cholecalciferol (Vitamin D) 2,000 intlu PO DAILY [facility] Last Admin: 11/10/17 08:07 Dose: 2,000 intlu Docusate Sodium (Colace) 100 mg PO BID [facility] Last Admin: 11/10/17 08:07 Dose: 100 mg Lisinopril (Zestril) 10 mg PO DAILY [facility] Last Admin: 11/10/17 08:06 Dose: 10 mg Loratadine (Claritin) 10 mg PO DAILY [facility] Last Admin: 11/10/17 08:08 Dose: 10 mg Magnesium Hydroxide (Milk Of Magnesia) 30 ml PO DAILY PRN PRN Reason: Constipation Last Admin: 11/09/17 13:28 Dose: 30 ml Memantine (Namenda) 10 mg PO DAILY [facility] Last Admin: 11/10/17 08:07 Dose: 10 mg Metoprolol Tartrate (Lopressor) 25 mg PO DAILY [facility] Last Admin: 11/10/17 08:06 Dose: 25 mg Naproxen (Anaprox Ds) 550 mg PO BID PRN PRN Reason: Pain, moderate (4-7) Last Admin: 11/04/17 15:55 Dose: 550 mg Olanzapine (Zyprexa Zydis) 10 mg PO [facility] PRN Reason: Protocol Last Admin: 11/09/17 21:08 Dose: 10 mg [id number] Ethyl Esters (Lovaza) 2 gm PO DAILY [facility] Last Admin: 11/10/17 08:09 Dose: 2 gm Oxybutynin Chloride (Ditropan Tab) 5 mg PO HS [facility] Last Admin: 11/09/17 21:08 Dose: 5 mg Pantoprazole Sodium (Protonix Ec Tab) 40 mg PO DAILY [facility] Last Admin: 11/10/17 08:08 Dose: 40 mg Sertraline HCl (Zoloft) 150 mg PO DAILY [facility] Last Admin: 11/10/17 08:09 Dose: 150 mg Vitamin E (Vitamin E 400 Units Cap) 400 intlu PO DAILY [facility] Last Admin: 11/10/17 08:08 Dose: 400 intlu Zaleplon (Sonata) 5 mg PO HS PRN PRN Reason: Insomnia Last Admin: 10/28/17 22:02 Dose: 5 mg - Labs Labs: 11/06/17 07:45 11/06/17 07:45 Attending/Attestation - Attestation I have personally seen and examined this patient.: Yes I have fully participated in the care of the patient.: Yes I have reviewed all pertinent clinical information, including history, physical exam and plan: Yes Notes (Text): 11/10/17 15:49 attending note; Patient is alert and awake. was called to evaluate patient today because she was complaining of dizziness, chest discomfort and nonspecific pain. Patient was about to be discharged on the discharge plan discussions were discussed this morning. Patient gets anxious about possibly going home. Currently symptoms resolved completely. EKG is normal. Cardiac enzymes negative. Recent echo 2 weeks ago was normal. complaining of urinary incontinence. started back on oxybutynin. can start Myrbetriq as outpatient. Vitals stable. patient ambulates with walker. Tolerating diet well. Patient had spina bifida surgery. Patient is medically stable.Please reconsult as needed. Most of her symptoms are possibly related to anxiety. Upon discharge patient will follow-up with PMD of choice.
--- NOTE | 2017-11-10 13:11 | CARD ---
APPROVED REPORT EKG Measurement Heart [id number] <Conclusion> Sinus bradycardia with 1st degree AV block Possible Left atrial enlargement Incomplete right bundle branch block Borderline ECG
--- NOTE | 2017-11-10 15:02 | PCM.PYCHPN ---
Psychiatric Progress Note - Psychiatric Progress Note Patient seen today, length of contact: 25 min Patient Chief Complaint: "okay" Problems Identified/Issues Discussed: Patient is a single 67-year-old white female with a psychiatric history of possible schizoaffective disorder versus schizophrenia versus major depressive disorder with psychotic symptoms, rule out OCD, multiple prior hospitalizations most recently a [facility] in 2006 who was admitted to the medical floor on for evaluation of dizziness. Psychiatry was consulted due to patients prior psychiatric history and patient was transferred to psychiatric unit on 10/26/17 for depression, disorganization and history of hallucinations as well as treatment of hoarding behaviors. I am familiar with patient from multiple prior interviews during her treatment on the medical floor as well as the psychiatric unit. I met with patient bedside and she remains alert and oriented to month, year, location and circumstances. Her focus remains fair and she is cooperative with questioning. Grooming is still a little unkempt. Patient reports that she feels okay today. She tells me her depression is improving. Patient denies having any thoughts of harming herself or others. Affect is generally pleasant and cooperative. Thought process is showing some improvement. She still remains irrational and scattered at times but can be easily redirected. Fixed delusions were not elicited. Reports having some vague hallucinations over the past week however she cannot recall them in any detail. She currently denies any perceptual disturbance. She doesn't appear to be responding to internal stimuli. She is tolerating zoloft and zyprexa. She denies any new side effects, discomfort or pain. Sleep was a little restless last night. Per staff notes, patient has been calm and in control on the unit. She is attending groups without evidence of agitation or aggression. Appears relaxed, more organized and reactive. There were no major behavioral issues overnight . Diagnostic Results: Schizoaffective Disorder Medication Change: No Medical Record Reviewed: Yes Mental Status Examination - Cognitive Function Orientation: Person, Place, Situation, Time Memory: Intact Attention: WNL Concentration: WNL Association: Loose Fund of Knowledge: WNL - Mood Mood: Depressed ("okay"), Anxious (denied) - Affect Affect: Constricted (more reactive) - Speech Speech: Appropriate - Formal Thought Process Formal Thought Process: Hallucinations (reports vague hallucinations over the week, none currently), Delusions, Paranoia, Loosening of associations, Circumstantial - Suicidal Ideation Suicidal Ideation: No - Homicidal Ideation Homicidal Ideation: No Goal/Treatment Plan - Goal/Treatment Plan Need for Continued Stay: Remain at risks for inpatient hospitalization, Severe depression anxiety, Discharge may exacerbated symptoms, Severe functional impairment Progress Toward Problem(s) and Goals/Treatment Plan: * c/w current tx and plan * No new floor labs this weekend thus far * Vitals reviewed and noted below: Selected Entries 11/10/17 06:58 Temperature 97.8 F Pulse Rate 67 Respiratory 18 Rate Blood Pressure 116/65 Estimated Date of D/C: 11/12/17
[2017-11-10] MEDS: OLANZapine 5 mg Disintegrating Tab PO SCH (23:16)
[2017-11-11 07:32] VITALS: RESP 20
[2017-11-11] MEDS: Arformoterol 15 mcg/2 ml Inh Sol IH SCH ×2 (08:23→20:19)
[2017-11-11] MEDS: Budesonide 0.5 mg/2 ml Inhal Susp UD IH SCH ×2 (08:24→20:19)
[2017-11-11] MEDS: Omega-3-Acid Ethyl Esters 1 GM Cap PO SCH (09:13)
[2017-11-11] MEDS: Pantoprazole 40 mg EC Tab PO SCH (09:14)
[2017-11-11] MEDS: Cholecalciferol 1,000 INTLU TAB PO SCH (09:15)
[2017-11-11] MEDS: Magnesium Hydroxide Susp 30 ml UD PO PRN (11:16)
--- NOTE | 2017-11-11 11:22 | PCM.PYCHPN ---
Psychiatric Progress Note - Psychiatric Progress Note Patient seen today, length of contact: 25 min Patient Chief Complaint: "okay" Problems Identified/Issues Discussed: Patient is a single 67-year-old white female with a psychiatric history of possible schizoaffective disorder versus schizophrenia versus major depressive disorder with psychotic symptoms, rule out OCD, multiple prior hospitalizations most recently a [facility] in 2006 who was admitted to the medical floor on for evaluation of dizziness. Psychiatry was consulted due to patients prior psychiatric history and patient was transferred to psychiatric unit on 10/26/17 for depression, disorganization and history of hallucinations as well as treatment of hoarding behaviors. I am familiar with patient from multiple prior interviews during her treatment on the medical floor as well as the psychiatric unit. I met with patient in the dayroom and she remains alert and oriented to month, year, location and circumstances. Her focus is fair and she is cooperative with questioning. Grooming is still unkempt. Patient reports again that she feels "okay". She tells me her depression is improving. Patient denies having any thoughts of harming herself or others. Affect is generally pleasant and cooperative. Thought process is showing some improvement. She still remains scattered and anxious at times but can be easily redirected. Fixed delusions were not elicited. Reports having some vague hallucinations over the past week however she cannot recall them in any detail. She currently denies any perceptual disturbance. She doesn't appear to be responding to internal stimuli. She is tolerating zoloft and zyprexa. She denies any new side effects, discomfort or pain. Sleep was a little restless last night. Per staff notes, patient has been calm and in control on the unit. She is attending groups without evidence of agitation or aggression. Appears relaxed, more organized and reactive. There were no major behavioral issues over the weekend. Of note: Patient was seen by Dr. Silverman/Dr. Rushing on Sunday morning due to complaints of chest pain. Chest pain was resolved by examination. EKG had no acute ST changes and troponin x2 were negative. . Diagnostic Results: Schizoaffective Disorder Medication Change: No Medical Record Reviewed: Yes Mental Status Examination - Cognitive Function Orientation: Person, Place, Situation, Time Memory: Intact Attention: WNL Concentration: WNL Association: Loose Fund of Knowledge: WNL - Mood Mood: Depressed ("okay"), Anxious (denied) - Affect Affect: Constricted (more reactive) - Speech Speech: Appropriate - Formal Thought Process Formal Thought Process: Hallucinations (reports vague hallucinations over the week, none currently), Delusions, Paranoia, Loosening of associations, Circumstantial - Suicidal Ideation Suicidal Ideation: No - Homicidal Ideation Homicidal Ideation: No Goal/Treatment Plan - Goal/Treatment Plan Need for Continued Stay: Remain at risks for inpatient hospitalization, Severe depression anxiety, Discharge may exacerbated symptoms, Severe functional impairment Progress Toward Problem(s) and Goals/Treatment Plan: * c/w current tx and plan * Of note: Patient was seen by Dr. Silverman/Dr. Rushing on 11/10/17Sunday morning due to complaints of chest pain. Chest pain was resolved by examination and patient denied further chest pain during my interview with her on Sunday. EKG had no acute ST changes and troponin x2 were negative. 11/10/17 11/10/17 11:20 17:22 Troponin I < 0.01 < 0.01 * Vitals reviewed and noted below: 11/11/17 11/11/17 11/11/17 07:31 09:11 09:12 Temperature 97.7 F Pulse Rate 64 Respiratory 20 Rate Blood Pressure 105/59 L 112/62 112/62 Estimated Date of D/C: 11/12/17
[2017-11-11] MEDS: OLANZapine 5 mg Disintegrating Tab PO SCH (21:12)
[2017-11-12 07:29] VITALS: BP 120/62; PULSE 58; TEMP 98.1
[2017-11-12] MEDS: Budesonide 0.5 mg/2 ml Inhal Susp UD IH SCH (08:05)
[2017-11-12] MEDS: Arformoterol 15 mcg/2 ml Inh Sol IH SCH (08:05)
[2017-11-12] MEDS: Cholecalciferol 1,000 INTLU TAB PO SCH (08:39)
[2017-11-12] MEDS: Omega-3-Acid Ethyl Esters 1 GM Cap PO SCH (08:40)
[2017-11-12] MEDS: Pantoprazole 40 mg EC Tab PO SCH (08:42)
--- NOTE | 2017-11-12 13:51 | PCM.PYCHDC ---
Mental Status Examination - Mental Status Examination Orientation: Person, Place, Situation, Time Memory: Intact Mood: Neutral Affect: Constricted (but reactive and mood congruent) Speech: Appropriate (at times disorganized), Slurred Attention: Poor (much improved) Concentration: Poor (much improved much improved) Association: Loose (baseline) Fund of Knowledge: WNL Formal Thought Process: Circumstantial Description of patient's judgement and insight: Pt has improved insight into mental and medical illness, pt was compliant with medications and unit rules and regulations, pt was going to groups, was calm, cooperative, socially appropriate, no behavioral incidents, no agitation, no aggression. Psychotic Thoughts and Behaviors: Pt denied v/a/t hallucinations, denied paranoid ideations, pt does not appear to be psychotic, and thought process is goal directed. Suicidal Ideation: No Current Homicidal Ideation?: No Plan: pt adamantly denied thoughts of harming self or others denied intent or plan. Discharge Summary - Discharge Note Reason for Hospitalization: disorganized thoughts and behavior Psychiatric History (includes Medical, Family, Personal Hx): schizophrenia/ schizoaffective Laboratory Data: 11/06/17 07:45 11/06/17 07:45 Lab Results 11/10/17 17:22: Troponin I < 0.01 11/10/17 11:20: Troponin I < 0.01 11/06/17 07:45: Sodium 137, Potassium 5.1 H, Chloride 99, Carbon Dioxide 33, Anion Gap 10, BUN 31 H, Creatinine 0.8, Est GFR ( Amer) > 60, Est GFR ( Non-Af Amer) > 60, Random Glucose 88, Calcium 9.7, Total Bilirubin 0.2, AST 34, ALT 34, Alkaline Phosphatase 56, Total Protein 6.7, Albumin 3.8, Globulin 2.8, Albumin/Globulin Ratio 1.3 11/06/17 07:45: WBC 6.6, RBC 3.63, Hgb 10.6 L, Hct 32.7 L, MCV 90.1, MCH 29.2, MCHC 32.4, RDW 13.4, Plt Count 250, MPV 8.6, Gran % 73.6 H, Lymph % (Auto) 15.3 L, Eddy % (Auto) 8.2 H, Eos % (Auto) 2.7, Baso % (Auto) 0.2, Gran # 4.88, Lymph # (Auto) 1.0 L, Eddy # (Auto) 0.5, Eos # (Auto) 0.2, Baso # (Auto) 0.01 10/27/17 07:30: RPR Nonreactive 10/27/17 07:30: TSH 3rd Generation 2.26 10/27/17 07:30: Fasting Glucose 86, Triglycerides 39, Cholesterol 143, LDL Cholesterol Direct 52, HDL Cholesterol 72 H Vital Signs Temp Pulse Resp BP Pulse Ox 11/12/17 08:41 58 L 120/62 11/12/17 08:40 58 L 120/62 11/12/17 07:28 98.1 F 58 L 20 120/62 11/11/17 15:00 83 123/85 11/11/17 09:12 66 112/62 11/11/17 09:11 66 112/62 11/11/17 07:31 97.7 F 64 20 105/59 L 11/10/17 17:57 59 L 98/52 L 11/10/17 08:06 67 116/65 11/10/17 06:58 97.8 F 67 18 116/65 11/09/17 15:00 72 20 121/77 11/09/17 07:16 98.8 F 62 20 131/65 11/08/17 16:00 55 L 144/71 11/08/17 07:14 97.7 F 62 20 127/66 11/07/17 16:00 66 102/51 L 11/07/17 08:31 69 125/64 11/07/17 08:30 69 125/64 11/07/17 06:57 98.0 F 69 20 125/64 11/06/17 16:00 62 127/47 L 11/06/17 09:57 62 122/66 11/06/17 09:56 62 122/66 11/06/17 06:59 97.6 F 58 L 20 118/62 11/05/17 15:54 60 115/55 L 11/05/17 07:00 97.9 F 64 20 113/68 11/04/17 16:00 70 105/62 11/04/17 06:44 97.8 F 64 20 133/67 11/03/17 16:00 61 117/58 L 11/03/17 07:43 60 129/65 11/03/17 06:45 98.3 F 60 20 129/65 11/02/17 08:54 64 162/87 H 11/02/17 08:52 64 162/87 H 11/02/17 06:53 96.8 F L 64 20 162/87 H 11/01/17 16:00 67 120/73 11/01/17 09:56 76 128/74 11/01/17 09:55 76 128/74 11/01/17 07:27 97.3 F L 66 20 97/56 L 10/31/17 16:00 71 112/53 L 10/31/17 07:18 97.8 F 69 20 123/65 10/30/17 16:00 69 121/66 10/30/17 08:58 65 131/67 10/30/17 08:56 65 135/67 10/30/17 07:04 97.7 F 65 18 131/67 10/29/17 16:00 73 116/55 L 10/29/17 07:33 97.8 F 84 20 115/65 10/28/17 15:00 75 96/59 L 10/28/17 09:31 67 119/60 10/28/17 09:30 67 119/60 10/28/17 07:52 98.7 F 67 20 119/60 10/27/17 09:22 75 112/60 10/27/17 09:14 75 112/60 10/27/17 07:15 97.6 F 75 20 112/56 L 10/26/17 21:15 98.5 F 68 20 141/68 96 Consultations:: List each consultation separately and include: 1. Reason for request. 2. Findings. 3. Follow-up Consultations: medical consult appreciated see notes for more detailed information yesterday patient was evaluated by medical team for nonspecific, noncardiac chest pain, troponins were negative, medical team signed off Summary of Hospital Course include:: 1. Description of specific treatment plan utilized for patients during their course of treatmen. 2. Summarize the time- course for resolution of acute symptoms and/or regressed behaviors. 3. Describe issues identified and worked on during hospitalization. 4. Describe medication utilized. 5. Describe medical problems identified and treated. 6. Reassessment of suicide risk Summary of Hospital Course: Patient is a single 67-year-old white female with a psychiatric history of possible schizoaffective disorder versus schizophrenia versus major depressive disorder with psychotic symptoms, rule out OCD, multi problem prior hospitalizations most recently a [facility] [id number], in psychiatric treatment with Dr. Fong in [place], reportedly compliant with medications and follow up appts, initially pt was admitted to the medical floor for dizziness. Patient was transferred to the psychiatric inpatient unit for evaluation and stabilization of depression, hallucinations as well as possible hoarding behavior so severe that patient is facing eviction (cannot exclude pt might be paranoid and it is incorrect information). patient pharmacy was called, medication confirmed, phone number [phone] [facility] pharmacy. during the initial assessment by this news writer pt presented to be disorganized in her thoughts and behavior, patient's affect was incongruent with her mood and presentation, for example patient was explaining her suicidal attempt by ingesting bleach at the same time patient was smiling and even laughing. patient was guarded, paranoid, disorganized in her thoughts and behavior, patient complained that she had not history of memory problems at the same time patient was able to give the brand and generic names of all of her meds and her psychiatrist and PMD names. "I had hallucinations, I saw the zhang, it was yellow [id number], it looks like cheese, I have to watch TV for two hours a day to motivate myself, this is what I was advised, my landlord wants to evict me because I collected too much paper , you know I've received much mail, he wants me out, probably he likes my neighbour upstairs, he is afraid of fire, you know he is smoking, but he wants to evict me, yes, yes". patient said that she had good response on Zyprexa, willing to be resumed on that medication. As per pharmacy patient wasn't following medications: Risperdal 2 mg by mouth at the night time prescribed by Dr. Rick Hanna on 03/2018 Vitamin D3 2000 unit one pill daily Pro air Lactulose 10 mg at bedtime Metoprolol 25 mg daily Atorvastatin 10 mg daily lisinopril 10 mg daily Oxybutynin 5 mg daily Advair 250/50 Omeprazole 40 mg daily Gabapentin 300 mg at bedtime Ranitidine 150 mg twice a day [place]-3 Melatonin Vitamin E 400 unit daily Loratadine 10 mg daily Baclofen 10 mg twice a day Multivitamins daily Colace 100 mg daily Risperdal 2 mg at the night time prescribed by Dr. Rick Hnana on October 19 Remeron 1010 mg daily same prescriber seemed today to feel Lexapro 10 mg daily same prescriber same date of refill medication least was filled in to the chart, medications resumed patient wants to be weaned off Risperdal and she was educated bout Zyprexa, risk , benefits, alternatives discussed with the patient. patient was stabilized on the following medications which were slowly titrated up: Zyprexa zydis10 mg nighttime for psychosis and mood stabilization zoloft 150mg po daily for depression and anxiety Sonata as needed for insomnia meeting with block and case maker appreciated 11/07/2017 pt agreed to clean her apartment and go back to her psychiatrist for follow up Over the course of this hospitalization pt was attending groups, pt also had medication management, had therapeutic milieu. Overall pt improved significantly, pt's affect became brighter, pt was less depressed, has realistic future oriented plans, pt has residual symptoms of psychosis with disorganized thoughts, but overall much better, pt was socially appropriate, no behavioral issues, pts insight improved as well and soon pt deemed to be ready for discharge. At the time of the discharge pt denied been depressed, denied thoughts of harming self or others, denied psychotic symptoms, and pt does not appeared to be psychotic, denied been anxious, pt is not in imminent danger to self or others, will be following up with Dr. Fong in [place], information about follow up appointment, time and address provided to the pt, it is patient responsibility to follow up with outpatient clinic, PMD as well as specialists ( see SW note for more detailed information). In case pt will need to obtain results of studies pending at discharge pt was provided with contact information of Psychiatric Inpatient unit [phone] as well as Medical Record Department [phone]. pt does not use any drugs, not smoking pt was provided with prescriptions for all of medications (please see medication reconciliation form) Pt was educated about safety plan in case of worsening of symptoms or in case of suicidal or homicidal ideation call 911 or go to the nearest ER, also was educated to take meds as prescribed and stay away from drugs, pt verbalized understanding. - Diagnosis (1) Schizoaffective disorder Current Visit: Yes Status: Acute (2) Schizoaffective disorder Current Visit: Yes Status: Chronic Priority: High - Final Diagnosis (DSM 5) Condition upon Discharge: IMPROVED Disposition: HOME/ ROUTINE Follow-up Treatment Plan: At the time of the discharge pt denied been depressed, denied thoughts of harming self or others, denied psychotic symptoms, and pt does not appeared to be psychotic, denied been anxious, pt is not in imminent danger to self or others, will be following up with Dr. Fong in [place], information about follow up appointment, time and address provided to the pt, it is patient responsibility to follow up with outpatient clinic, PMD as well as specialists ( see SW note for more detailed information). In case pt will need to obtain results of studies pending at discharge pt was provided with contact information of Psychiatric Inpatient unit [phone] as well as Medical Record Department [phone]. pt does not use any drugs, not smoking pt was provided with prescriptions for all of medications (please see medication reconciliation form) Pt was educated about safety plan in case of worsening of symptoms or in case of suicidal or homicidal ideation call 911 or go to the nearest ER, also was educated to take meds as prescribed and stay away from drugs, pt verbalized understanding. Prescriptions/Medication Reconciliation: Arformoterol [Brovana] 15 mcg IH [id number] #1 neb Atorvastatin [Lipitor] 10 mg PO DIN #7 tab Baclofen [Lioresal] 10 mg PO BID #14 tab Budesonide [Pulmicort Respules] 0.5 mg IH [id number] #1 neb Cholecalciferol [Vitamin D 1000 IU] 2,000 intlu PO DAILY #14 tab Docusate [Colace] 100 mg PO BID #14 cap Lisinopril [Zestril] 10 mg PO DAILY #7 tab Loratadine [Claritin] 10 mg PO DAILY #7 tab Memantine [Namenda] 10 mg PO DAILY #7 tab Metoprolol Tartrate [Lopressor] 25 mg PO DAILY #7 tab Naproxen [Anaprox DS] 550 mg PO BID PRN #14 tab PRN Reason: Pain, Moderate (4-7) OLANZapine [Zyprexa Zydis] 10 mg PO HS #14 odt [id number] Ethyl Esters 1 GM [Lovaza] 2 gm PO DAILY #7 sgl Oxybutynin [Ditropan Tab] 5 mg PO HS #7 tab Pantoprazole [Protonix EC Tab] 40 mg PO DAILY #7 ect Polyvinyl Alcohol/Povidone [Refresh Opth Soln] 0.3 ml OD DAILY PRN #1 drpette PRN Reason: Dry Eyes Sertraline [Zoloft] 100 mg PO DAILY #14 tab Sertraline [Zoloft] 50 mg PO DAILY #14 tab Vitamin E [Vitamin E 400 Units Cap] 400 intlu PO DAILY #7 cap Zaleplon [Sonata] 5 mg PO HS PRN #14 cap PRN Reason: Insomnia - Smoking Cessation Smoking Cessation Medication prescribed: No Reason for not providing: pt does not smoke - Antipsychotic Medications Pt discharged on 2 or more routine antipsychotic medications: No
== END 2017-11-12 16:06 | disposition home or self-care (01) | DRG 885 ==
LOC: PSYC 20:40
PROVIDERS: ADMIT Psychiatry & Neurology Psychiatry; ATTEND Psychiatry & Neurology Psychiatry
PROC: 0HBRXZZ Excision of Toe Nail, External Approach (ICD-10-PCS; principal; 2017-11-05)
DX: F25.9 Schizoaffective disorder, unspecified (principal); F32.9 Major depressive disorder, single episode, unspecified; F41.9 Anxiety disorder, unspecified; I10 Essential (primary) hypertension; E78.5 Hyperlipidemia, unspecified; J44.9 Chronic obstructive pulmonary disease, unspecified; K21.9 Gastro-esophageal reflux disease without esophagitis; G62.9 Polyneuropathy, unspecified; N39.3 Stress incontinence (female) (male); H16.229 Keratoconjunctivitis sicca, not specified as Sjogren's, unspecified eye; B35.1 Tinea unguium; R42 Dizziness and giddiness; Z87.798 Personal history of other (corrected) congenital malformations; Z88.2 Allergy status to sulfonamides